=== PATIENT | female | born 1960 | race Caucasian/White ===

== ENCOUNTER → 2016-09-15 | Outpatient (REF) | payer BC ==
[~2016-09-15] MED LIST: CEFT500T3 PO; DRIS50002 PO; IBUP600T; MEGE40TA18 PO; MOTRIN600 PO; MOTRIN800 PO; NASONEX NASAL; NIZORALCR TOP; NORC1TAB4 PO; PRILOSEC20 PO; PRILOSEC40 PO; VIBR100C PO; VICO5TAB
[2016-09-15 12:58] LABS: BASO % 0.5 % (0.0-1.0); EOS # 0.1 K/mm3 (0.0-0.50); EOS % 1.6 % (0.0-3.0); LARGE UNSTAINED CELL # 0.1 K/mm3 (0.0-0.4); LARGE UNSTAINED CELL % 0.9 % (0.0-4.0); LYMPH # 1.2 K/mm3 (1.5-4.5); LYMPH % 20.4 % (24.0-44.0); MEAN CORPUSCULAR HEMOGLOBIN 25.2 pg (27.0-33.0); MEAN CORPUSCULAR HGB CONC 31.9 g/dl (32.0-36.5); MONO # 0.4 K/mm3 (0.0-0.8); MONO % 6.1 % (0.0-5.0); NEUTROPHILS % 70.5 % (36.0-66.0); PLATELET COUNT, AUTOMATED 176 k/mm3 (150-450); RED CELL DISTRIBUTION WIDTH 15.1 % (11.5-14.5); WHITE BLOOD COUNT 5.7 K/mm3 (4.0-10.0)
[2016-09-15 13:18] LABS: ALBUMIN 3.3 GM/DL (3.2-5.2); ALKALINE PHOSPHATASE 110 U/L (45-117); ALT/SGPT 18 U/L (12-78); ANION GAP 8 MEQ/L (8-16); AST/SGOT 14 U/L (15-37); BILIRUBIN,TOTAL 0.5 MG/DL (0.2-1.0); BLOOD UREA NITROGEN 15 MG/DL (7-18); CALCIUM LEVEL 8.4 MG/DL (8.5-10.1); CARBON DIOXIDE LEVEL 28 MEQ/L (21-32); CHLORIDE LEVEL 105 MEQ/L (98-107); CHOLESTEROL LEVEL 163 MG/DL (<200); CREATININE FOR GFR 0.77 MG/DL (0.55-1.02); FREE T4 1.18 NG/DL (0.76-1.46); GLOMERULAR FILTRATION RATE > 60.0 (>51); GLUCOSE, FASTING 143 MG/DL (70-105); POTASSIUM SERUM 4.4 MEQ/L (3.5-5.1); SODIUM LEVEL 141 MEQ/L (136-145); TOTAL PROTEIN 6.3 GM/DL (6.4-8.2); TRIGLYCERIDES LEVEL 238 MG/DL (<150)
== END ==
LOC: M SFHCADAM 07:49
PROVIDERS: ATTEND Physician Assistant Medical
DX: E66.01 Morbid (severe) obesity due to excess calories (principal); E55.9 Vitamin D deficiency, unspecified; R73.01 Impaired fasting glucose

== ENCOUNTER → 2016-12-14 | Outpatient (REF) | payer BC | LOC: M LAB REF 09:31 | PROVIDERS: ATTEND Physician Assistant Medical | DX: N30.01 Acute cystitis with hematuria (principal) ==

== ENCOUNTER → 2016-12-28 | Outpatient (REF) | payer BC | LOC: M LAB REF 09:27 | PROVIDERS: ATTEND Physician Assistant Medical | DX: N30.01 Acute cystitis with hematuria (principal) ==

== ENCOUNTER → 2017-01-09 | Outpatient (REF) | payer BC ==
[2017-01-09 13:05] LABS: ALBUMIN 3.5 GM/DL (3.2-5.2); ALBUMIN/GLOBULIN RATIO 1.25 (1.00-1.93); ALKALINE PHOSPHATASE 76 U/L (45-117); ALT/SGPT 21 U/L (12-78); ANION GAP 7 MEQ/L (8-16); AST/SGOT 15 U/L (15-37); BILIRUBIN,TOTAL 0.6 MG/DL (0.2-1.0); BLOOD UREA NITROGEN 10 MG/DL (7-18); CALCIUM LEVEL 8.3 MG/DL (8.5-10.1); CARBON DIOXIDE LEVEL 27 MEQ/L (21-32); CHLORIDE LEVEL 110 MEQ/L (98-107); CREATININE FOR GFR 0.62 MG/DL (0.55-1.02); GLOMERULAR FILTRATION RATE > 60.0 (>51); GLUCOSE, FASTING 105 MG/DL (70-105); POTASSIUM SERUM 4.1 MEQ/L (3.5-5.1); SODIUM LEVEL 144 MEQ/L (136-145); TOTAL PROTEIN 6.3 GM/DL (6.4-8.2)
== END ==
LOC: M LABDRAW1 11:40
PROVIDERS: ATTEND Physician Assistant Medical
DX: E78.1 Pure hyperglyceridemia (principal); E11.9 Type 2 diabetes mellitus without complications; E55.9 Vitamin D deficiency, unspecified

== ENCOUNTER → 2017-05-12 | Outpatient (REF) | payer BC ==
[2017-05-12 12:44] LABS: BASO % 0.8 % (0.0-1.0); EOS # 0.1 10^3/uL (0.0-0.50); EOS % 1.6 % (0.0-3.0); IMMATURE GRANULOCYTE % 0.2 % (0-0); LYMPH # 0.9 10^3/uL (1.5-4.5); LYMPH % 18.2 % (24.0-44.0); MEAN CORPUSCULAR HEMOGLOBIN 25.7 pg (27.0-33.0); MEAN CORPUSCULAR HGB CONC 31.6 g/dl (32.0-36.5); MEAN CORPUSCULAR VOLUME 81.5 fl (80.0-96.0); MONO # 0.4 10^3/uL (0.0-0.8); MONO % 7.6 % (0.0-5.0); NEUTROPHILS # 3.5 10^3/uL (1.8-7.7); NEUTROPHILS % 71.6 % (36.0-66.0); PLATELET COUNT, AUTOMATED 162 10^3/uL (150-450); RED CELL DISTRIBUTION WIDTH 15.5 % (11.5-14.5); WHITE BLOOD COUNT 4.9 10^3/uL (4.0-10.0)
[2017-05-12 13:16] LABS: ALBUMIN 3.4 GM/DL (3.2-5.2); ALKALINE PHOSPHATASE 77 U/L (45-117); ALT/SGPT 17 U/L (12-78); ANION GAP 6 MEQ/L (8-16); AST/SGOT 16 U/L (7-37); BILIRUBIN,TOTAL 0.7 MG/DL (0.2-1.0); BLOOD UREA NITROGEN 11 MG/DL (7-18); CALCIUM LEVEL 8.6 MG/DL (8.5-10.1); CARBON DIOXIDE LEVEL 31 MEQ/L (21-32); CHLORIDE LEVEL 105 MEQ/L (98-107); CHOLESTEROL LEVEL 152 MG/DL (<200); CREATININE FOR GFR 0.51 MG/DL (0.55-1.02); GLOMERULAR FILTRATION RATE > 60.0 (>51); GLUCOSE, FASTING 92 MG/DL (70-105); POTASSIUM SERUM 4.3 MEQ/L (3.5-5.1); SODIUM LEVEL 142 MEQ/L (136-145); TOTAL PROTEIN 6.5 GM/DL (6.4-8.2); TRIGLYCERIDES LEVEL 130 MG/DL (<150)
== END ==
LOC: M SFHCADAM 09:44
PROVIDERS: ATTEND Physician Assistant Medical
DX: E11.9 Type 2 diabetes mellitus without complications (principal); E55.9 Vitamin D deficiency, unspecified; E78.1 Pure hyperglyceridemia

== ENCOUNTER 2017-07-07 12:01 | Inpatient (IN) | payer BC ==
[2017-07-07] MEDS: ASPIRIN 81 MG CHEW TABLET PO (12:53)
[2017-07-07] MEDS: NITROGLYCERIN 0.4 MG SUBL TABLET SL ×3 (12:54→13:17)
[2017-07-07 13:01] LABS: BASO % 0.4 % (0.0-1.0); EOS # 0.1 10^3/uL (0.0-0.50); EOS % 1.1 % (0.0-3.0); HEMATOCRIT 37.5 % (36.0-47.0); HEMOGLOBIN 11.8 g/dl (12.0-16.0); IMMATURE GRANULOCYTE % 0.2 % (0-3.0); LYMPH # 0.7 10^3/uL (1.5-4.5); MEAN CORPUSCULAR HEMOGLOBIN 25.3 pg (27.0-33.0); MEAN CORPUSCULAR HGB CONC 31.5 g/dl (32.0-36.5); MEAN CORPUSCULAR VOLUME 80.3 fl (80.0-96.0); MONO # 0.4 10^3/uL (0.0-0.8); MONO % 7.7 % (0.0-5.0); NEUTROPHILS # 4.1 10^3/uL (1.8-7.7); NEUTROPHILS % 77.6 % (36.0-66.0); PLATELET COUNT, AUTOMATED 130 10^3/uL (150-450); RED BLOOD COUNT 4.67 10^6/uL (4.00-5.40); RED CELL DISTRIBUTION WIDTH 15.5 % (11.5-14.5); WHITE BLOOD COUNT 5.3 10^3/uL (4.0-10.0)
[2017-07-07 13:16] LABS: ALBUMIN 3.5 GM/DL (3.2-5.2); ALBUMIN/GLOBULIN RATIO 1.09 (1.00-1.93); ALKALINE PHOSPHATASE 104 U/L (45-117); ALT/SGPT 25 U/L (12-78); ANION GAP 5 MEQ/L (8-16); AST/SGOT 23 U/L (7-37); BILIRUBIN,DIRECT 0.1 MG/DL (0.0-0.2); BILIRUBIN,TOTAL 0.4 MG/DL (0.2-1.0); BLOOD UREA NITROGEN 13 MG/DL (7-18); CALCIUM LEVEL 8.5 MG/DL (8.5-10.1); CARBON DIOXIDE LEVEL 29 MEQ/L (21-32); CHLORIDE LEVEL 108 MEQ/L (98-107); CPK CREATINE PHOSPHOKINASE 49 U/L (26-192); CREATININE FOR GFR 0.56 MG/DL (0.55-1.30); GLOMERULAR FILTRATION RATE > 60.0 (>51); GLUCOSE, FASTING 104 MG/DL (70-100); LIPASE 116 U/L (73-393); MB/CK RELATIVE INDEX 2.04 (< OR =4); SODIUM LEVEL 142 MEQ/L (136-145); TOTAL PROTEIN 6.7 GM/DL (6.4-8.2); TROPONIN I < 0.02 NG/ML (< 0.10)
[2017-07-07 13:16] LABS: NT-PRO BNP 118 PG/ML (<125)
[2017-07-07 13:20] LABS: PROTHROMBIN TIME 13.3 SECONDS (12.4-14.5)
[2017-07-07 13:21] LABS: PARTIAL THROMBOPLASTIN TIME 26.6 SECONDS (26.8-37.9)
[2017-07-07 13:23] LABS: D-DIMER QUANT 1722.7 ng/ml (<500)
[2017-07-07] MEDS ORDERED: ISOVUE-370 76% 100ML VIAL (Q9967) As Ordered (13:37)
[2017-07-07] MEDS ORDERED: ONDANSETRON 4MG/2ML VIAL (J2405) IV (16:00)
[2017-07-07 18:31] LABS: ESTIMATED AVERAGE GLUCOSE 140 MG/DL (60-110); HEMOGLOBIN A1c 6.5 %
[2017-07-07 18:33] LABS: CPK CREATINE PHOSPHOKINASE 44 U/L (26-192); FREE THYROXINE INDEX 3.3 % (1.3-4.8); T UPTAKE 31 % (30-39); THYROXINE (T4) 10.5 UG/DL (4.5-12.0); TROPONIN I < 0.02 NG/ML (< 0.10)
[2017-07-07 18:37] LABS: ALPHA FETOPROTEIN TUMOR QUANT 2.1 NG/ML (<8.1)
[2017-07-07 18:38] LABS: CARCINOEMBRYONIC ANTIGEN 75.7 NG/ML (<2.5); MB/CK RELATIVE INDEX 2.27 (< OR =4)
[2017-07-07 19:06] LABS: CA 125 107.1 U/ML (<30.2)
[2017-07-07] MEDS: SENOKOT S TAB PO (21:00)
[2017-07-07] MEDS: PANTOPRAZOLE 40MG TAB (PROTONIX) PO (21:11)
[2017-07-07] MEDS: GI COCKTAIL 50ML BTL(HYOSCYAMINE/MAALOX/LIDOCAINE VISCOUS)(1:3:1) PO (21:11)
[2017-07-07] MEDS: HEPARIN SOD (PORCINE) 5000 UNITS/ML VIAL SC (21:12)
[2017-07-08 00:39] LABS: CPK CREATINE PHOSPHOKINASE 44 U/L (26-192); MB/CK RELATIVE INDEX 2.27 (< OR =4); TROPONIN I < 0.02 NG/ML (< 0.10)
[2017-07-08 04:17] LABS: HEMATOCRIT 35.3 % (36.0-47.0); HEMOGLOBIN 11.3 g/dl (12.0-16.0); MEAN CORPUSCULAR HEMOGLOBIN 25.3 pg (27.0-33.0); MEAN CORPUSCULAR VOLUME 79.1 fl (80.0-96.0); PLATELET COUNT, AUTOMATED 122 10^3/uL (150-450); RED BLOOD COUNT 4.46 10^6/uL (4.00-5.40); RED CELL DISTRIBUTION WIDTH 15.4 % (11.5-14.5); WHITE BLOOD COUNT 5.1 10^3/uL (4.0-10.0)
[2017-07-08 04:43] LABS: ANION GAP 6 MEQ/L (8-16); BLOOD UREA NITROGEN 17 MG/DL (7-18); CALCIUM LEVEL 8.1 MG/DL (8.5-10.1); CARBON DIOXIDE LEVEL 27 MEQ/L (21-32); CHLORIDE LEVEL 110 MEQ/L (98-107); CHOLESTEROL LEVEL 139 MG/DL (<200); CHOLESTEROL RISK RATIO 3.088 (<5); CREATININE FOR GFR 0.46 MG/DL (0.55-1.30); GLOMERULAR FILTRATION RATE > 60.0 (>51); GLUCOSE, FASTING 115 MG/DL (70-100); HDL CHOLESTEROL 45 MG/DL (>40); LDL CHOLESTEROL 57.2 MG/DL (<100); MAGNESIUM LEVEL 2.3 MG/DL (1.8-2.4); NON-HDL-C 94 MG/DL; POTASSIUM SERUM 3.7 MEQ/L (3.5-5.1); SODIUM LEVEL 143 MEQ/L (136-145); TRIGLYCERIDES LEVEL 184 MG/DL (<150)
[2017-07-08] MEDS: SENOKOT S TAB PO ×2 (08:11→21:00)
[2017-07-08] MEDS: IBUPROFEN 400 MG TAB PO ×2 (08:12→21:38)
[2017-07-08] MEDS: PANTOPRAZOLE 40MG TAB (PROTONIX) PO (08:12)
[2017-07-08] MEDS: ASPIRIN 81 MG ENTERIC TAB PO (08:12)
[2017-07-08] MEDS: HEPARIN SOD (PORCINE) 5000 UNITS/ML VIAL SC ×2 (08:59→21:37)
[2017-07-08] MEDS: GASTROGRAFIN SOLUTION 30ML PO ×2 (12:44→12:45)
[2017-07-08] MEDS ORDERED: ISOVUE-370 76% 100ML VIAL (Q9967) As Ordered (13:39)
[2017-07-09 04:47] LABS: HEMATOCRIT 33.3 % (36.0-47.0); HEMOGLOBIN 10.7 g/dl (12.0-16.0); MEAN CORPUSCULAR HEMOGLOBIN 25.5 pg (27.0-33.0); MEAN CORPUSCULAR HGB CONC 32.1 g/dl (32.0-36.5); MEAN CORPUSCULAR VOLUME 79.3 fl (80.0-96.0); PLATELET COUNT, AUTOMATED 109 10^3/uL (150-450); RED CELL DISTRIBUTION WIDTH 15.4 % (11.5-14.5); WHITE BLOOD COUNT 4.9 10^3/uL (4.0-10.0)
[2017-07-09 05:11] LABS: ANION GAP 6 MEQ/L (8-16); BLOOD UREA NITROGEN 16 MG/DL (7-18); CARBON DIOXIDE LEVEL 26 MEQ/L (21-32); CHLORIDE LEVEL 111 MEQ/L (98-107); CREATININE FOR GFR 0.52 MG/DL (0.55-1.30); GLOMERULAR FILTRATION RATE > 60.0 (>51); GLUCOSE, FASTING 103 MG/DL (70-100); MAGNESIUM LEVEL 2.3 MG/DL (1.8-2.4); POTASSIUM SERUM 3.8 MEQ/L (3.5-5.1); SODIUM LEVEL 143 MEQ/L (136-145)
[2017-07-09] MEDS: HEPARIN SOD (PORCINE) 5000 UNITS/ML VIAL SC ×2 (08:28→21:04)
[2017-07-09] MEDS: PANTOPRAZOLE 40MG TAB (PROTONIX) PO (08:28)
[2017-07-09] MEDS: ASPIRIN 81 MG ENTERIC TAB PO (08:28)
[2017-07-09] MEDS: IBUPROFEN 400 MG TAB PO ×2 (08:28→18:54)
[2017-07-09] MEDS: SENOKOT S TAB PO ×2 (08:29→21:04)
[2017-07-10 06:58] LABS: HEMATOCRIT 35.3 % (36.0-47.0); HEMOGLOBIN 11.3 g/dl (12.0-16.0); MEAN CORPUSCULAR HEMOGLOBIN 25.6 pg (27.0-33.0); MEAN CORPUSCULAR VOLUME 79.9 fl (80.0-96.0); PLATELET COUNT, AUTOMATED 105 10^3/uL (150-450); RED BLOOD COUNT 4.42 10^6/uL (4.00-5.40); RED CELL DISTRIBUTION WIDTH 15.5 % (11.5-14.5); WHITE BLOOD COUNT 3.9 10^3/uL (4.0-10.0)
[2017-07-10 07:21] LABS: AMYLASE 31 U/L (25-115); ANION GAP 7 MEQ/L (8-16); BLOOD UREA NITROGEN 12 MG/DL (7-18); CALCIUM LEVEL 8.1 MG/DL (8.5-10.1); CARBON DIOXIDE LEVEL 26 MEQ/L (21-32); CHLORIDE LEVEL 111 MEQ/L (98-107); CREATININE FOR GFR 0.49 MG/DL (0.55-1.30); GLOMERULAR FILTRATION RATE > 60.0 (>51); GLUCOSE, FASTING 110 MG/DL (70-100); LIPASE 124 U/L (73-393); MAGNESIUM LEVEL 2.1 MG/DL (1.8-2.4); POTASSIUM SERUM 3.9 MEQ/L (3.5-5.1); SODIUM LEVEL 144 MEQ/L (136-145)
[2017-07-10] MEDS: PANTOPRAZOLE 40MG TAB (PROTONIX) PO (08:14)
[2017-07-10] MEDS: SENOKOT S TAB PO (08:14)
[2017-07-10] MEDS: ASPIRIN 81 MG ENTERIC TAB PO (08:14)
[2017-07-10] MEDS: HEPARIN SOD (PORCINE) 5000 UNITS/ML VIAL SC (08:14)
[2017-07-10 10:19] LABS: ALBUMIN 3.3 GM/DL (3.2-5.2); ALBUMIN/GLOBULIN RATIO 1.06 (1.00-1.93); ALKALINE PHOSPHATASE 70 U/L (45-117); ALT/SGPT 17 U/L (12-78); AST/SGOT 13 U/L (7-37); BILIRUBIN,DIRECT 0.1 MG/DL (0.0-0.2); BILIRUBIN,TOTAL 0.4 MG/DL (0.2-1.0); TOTAL PROTEIN 6.4 GM/DL (6.4-8.2)
[2017-07-10] MEDS: IBUPROFEN 400 MG TAB PO (12:11)
[2017-07-10] MEDS ORDERED: LIDOCAINE 1% MDV 20ML VIAL As Ordered (13:35)
[2017-07-13] MEDS ORDERED: VITAMIN D 50,000 UNITS CAPSULE (ERGOCALCIFEROL 1.25MG) PO (09:00)
== END 2017-07-10 18:40 | disposition home or self-care (01) ==
LOC: M MS4PR 07-09 15:15 → M ED 12:01 → M ED INP 15:50 → M PCU 17:47
PROC: 0FB13ZX Excision of Right Lobe Liver, Percutaneous Approach, Diagnostic (ICD-10-PCS; principal; 2017-07-10)
DX: K76.89 Other specified diseases of liver (principal); Z68.41 Body mass index [BMI] 40.0-44.9, adult; E66.01 Morbid (severe) obesity due to excess calories; R07.89 Other chest pain; E11.9 Type 2 diabetes mellitus without complications; K57.30 Diverticulosis of large intestine without perforation or abscess without bleeding; E27.9 Disorder of adrenal gland, unspecified

== ENCOUNTER 2017-07-27 10:41 | Day surgery (SDC) | payer BC ==
[2017-07-27] MEDS ORDERED: NS 1,000 ML IV (11:15)
[2017-07-27] MEDS ORDERED: LIDOCAINE 2% INJ 100 MG/5 ML SDV (FOR ANES.) As Ordered (12:26)
[2017-07-27] MEDS ORDERED: PROPOFOL 200 MG/20 ML VIAL As Ordered (12:26)
[2017-07-27] MEDS ORDERED: fentaNYL 100 MCG/2 ML INJECTION (J3010) As Ordered (12:27)
== END 2017-07-27 13:30 | disposition home or self-care (01) ==
LOC: M OPP 13:30
DX: D50.9 Iron deficiency anemia, unspecified (principal); C78.7 Secondary malignant neoplasm of liver and intrahepatic bile duct; K57.30 Diverticulosis of large intestine without perforation or abscess without bleeding; K64.8 Other hemorrhoids; K22.8 Other specified diseases of esophagus; I85.00 Esophageal varices without bleeding; K44.9 Diaphragmatic hernia without obstruction or gangrene; E55.9 Vitamin D deficiency, unspecified; E11.9 Type 2 diabetes mellitus without complications; E66.9 Obesity, unspecified
CPT/HCPCS: 45378

== ENCOUNTER → 2017-07-31 | Outpatient (CLI) | payer BC ==
[~2017-07-31] MED LIST changes: -CEFT500T3 PO; -DRIS50002 PO; -IBUP600T; -MEGE40TA18 PO; -MOTRIN600 PO; -MOTRIN800 PO; -NASONEX NASAL; -NIZORALCR TOP; -NORC1TAB4 PO; -PRILOSEC20 PO; -PRILOSEC40 PO; +PROHANCE 279.3MG/ML 15ML VIAL (A9576) As Ordered; +PROHANCE 279.3MG/ML 5ML VIAL (A9576) As Ordered; -VIBR100C PO; -VICO5TAB
[2017-07-31 10:34] LABS: AMYLASE 34 U/L (25-115); LIPASE 141 U/L (73-393)
[2017-07-31 11:59] LABS: HEPATITIS B SURFACE ANTIBODY NEGATIVE (POSITIVE)
[2017-07-31 12:09] LABS: HEPATITIS B SURFACE ANTIGEN NEGATIVE (NEGATIVE)
[2017-08-01 11:18] LABS: ALPHA FETOPROTEIN TUMOR QUANT < 1.3 NG/ML (<8.1)
[2017-08-01 15:09] LABS: CA19-9 TUMOR MARKER,CARBOHYDRA 99852.5 U/ML (<35.0)
== END ==
LOC: M LAB 09:34
DX: C78.7 Secondary malignant neoplasm of liver and intrahepatic bile duct (principal); D50.9 Iron deficiency anemia, unspecified

== ENCOUNTER → 2017-08-02 | Outpatient (REF) | payer BC ==
[2017-08-02 18:01] LABS: INR 0.99; PROTHROMBIN TIME 13.2 SECONDS (12.4-14.5)
[2017-08-02 18:02] LABS: PARTIAL THROMBOPLASTIN TIME 27.8 SECONDS (26.8-37.9)
== END ==
LOC: M LAB REF 16:29
DX: K90.3 Pancreatic steatorrhea (principal); C25.9 Malignant neoplasm of pancreas, unspecified
CPT/HCPCS: 85610

== ENCOUNTER 2017-08-07 11:24 | Day surgery (SDC) | payer BC ==
[2017-08-07] MEDS: LIDOCAINE 1% SDV INJ 30 ML VIAL As Ordered ×2 (09:51→13:54)
[2017-08-07] MEDS: LR 1,000 ML IV (11:18)
[2017-08-07 12:34] LABS: BEDSIDE GLUCOSE 108 MG/DL (70-105)
[2017-08-07] MEDS ORDERED: PROPOFOL 200 MG/20 ML VIAL As Ordered (13:08)
[2017-08-07] MEDS ORDERED: LIDOCAINE 2% INJ 100 MG/5 ML SDV (FOR ANES.) As Ordered (13:08)
[2017-08-07] MEDS ORDERED: fentaNYL 100 MCG/2 ML INJECTION (J3010) As Ordered (13:09)
[2017-08-07] MEDS ORDERED: MIDAZOLAM INJ 2 MG/2 ML VIAL (J2250) As Ordered (13:09)
[2017-08-07] MEDS: MUPIROCIN 2% OINT 22 GM TUBE TOP (13:26)
[2017-08-07] MEDS: HEPARIN SOD (PORCINE) 5000 UNITS/ML VIAL As Ordered (13:54)
[2017-08-07] MEDS: BUPIVACAINE LIPOSOME/PF 1.3% 20 ML VIAL (13.3MG/ML)(EXPAREL) As Ordered (14:22)
[2017-08-07] MEDS ORDERED: PERCOCET 5MG/325MG TAB As Ordered (15:24)
[2017-08-07] MEDS ORDERED: LR 1,000 ML IV (15:30)
[2017-08-07] MEDS ORDERED: ONDANSETRON 4MG/2ML VIAL (J2405) IV (15:30)
[2017-08-07] MEDS: PERCOCET 5MG/325MG TAB PO (15:34)
== END 2017-08-07 16:15 | disposition home or self-care (01) ==
LOC: M SDC 16:15
DX: C25.9 Malignant neoplasm of pancreas, unspecified (principal); C78.7 Secondary malignant neoplasm of liver and intrahepatic bile duct; E11.9 Type 2 diabetes mellitus without complications; E55.9 Vitamin D deficiency, unspecified; M12.9 Arthropathy, unspecified; E66.01 Morbid (severe) obesity due to excess calories; Z68.41 Body mass index [BMI] 40.0-44.9, adult; Z86.14 Personal history of Methicillin resistant Staphylococcus aureus infection; Z90.710 Acquired absence of both cervix and uterus
CPT/HCPCS: 36561

== ENCOUNTER → 2017-08-14 | Outpatient (CLI) | payer BC | LOC: M SMT 08:17 | DX: C78.7 Secondary malignant neoplasm of liver and intrahepatic bile duct (principal) ==

== ENCOUNTER 2017-09-13 00:22 | Inpatient (IN) | payer BC, OTHER, MEDICAID ==
[2017-09-13] MEDS: ACETAMINOPHEN 325 MG TAB PO (01:15)
[2017-09-13 01:52] LABS: BASO % 1.1 % (0.0-1.0); EOS % 1.1 % (0.0-3.0); HEMATOCRIT 33.2 % (36.0-47.0); HEMOGLOBIN 10.8 g/dl (12.0-15.5); LYMPH # 0.5 10^3/uL (1.5-4.5); LYMPH % 28.7 % (24.0-44.0); MEAN CORPUSCULAR HEMOGLOBIN 25.1 pg (27.0-33.0); MEAN CORPUSCULAR HGB CONC 32.5 g/dl (32.0-36.5); MONO # 0.5 10^3/uL (0.0-0.8); MONO % 28.2 % (0.0-5.0); NEUTROPHILS % 40.9 % (36.0-66.0); RED BLOOD COUNT 4.31 10^6/uL (4.00-5.40); RED CELL DISTRIBUTION WIDTH 14.7 % (11.5-14.5)
[2017-09-13 01:56] LABS: APPEARANCE, URINE HAZY (CLEAR); BACTERIA, URINE AUTO 1+ (NEGATIVE); BILIRUBIN, URINE AUTO 1+ (NEGATIVE); BLOOD, URINE BLOOD NEGATIVE (NEGATIVE); COLOR, URINE YELLOW (YELLOW); GLUCOSE, URINE (UA) AUTO NEGATIVE (NEGATIVE); KETONE, URINE AUTO NEGATIVE (NEGATIVE); LEUKOCYTE ESTERASE, URINE AUTO NEGATIVE (NEGATIVE); MUCUS, URINE SMALL (NEGATIVE); NITRITE, URINE AUTO NEGATIVE (NEGATIVE); PROTEIN, URINE AUTO NEGATIVE (NEGATIVE); RBC, URINE AUTO 1 /HPF (0-3); SPECIFIC GRAVITY URINE AUTO 1.027 (1.002-1.035); SQUAMOUS EPITHELIAL CELL UR AU 5 /HPF (0-6); UROBILINOGEN, URINE AUTO 0.2 mg/dL (0.0-2.0); WBC, URINE AUTO 1 /HPF (0-3)
[2017-09-13 02:05] LABS: WHITE BLOOD COUNT 1.9 10^3/uL (4.0-10.0)
[2017-09-13 02:06] LABS: ANION GAP 6 MEQ/L (8-16); BLOOD UREA NITROGEN 13 MG/DL (7-18); CALCIUM LEVEL 7.8 MG/DL (8.5-10.1); CARBON DIOXIDE LEVEL 25 MEQ/L (21-32); CHLORIDE LEVEL 106 MEQ/L (98-107); CREATININE FOR GFR 0.59 MG/DL (0.55-1.30); GLOMERULAR FILTRATION RATE > 60.0 (>51); GLUCOSE, FASTING 142 MG/DL (70-100); IMMATURE PLATELET FRACTION % 4.2 % (0.0-9.6); NEUTROPHILS # 0.8 10^3/uL (1.8-7.7); PLATELET COUNT, AUTOMATED 99 10^3/uL (150-450); POS COUNT POS FLAG; POSITIVE DIFF POS FLAG; POTASSIUM SERUM 3.5 MEQ/L (3.5-5.1); SODIUM LEVEL 137 MEQ/L (136-145)
[2017-09-13 02:09] LABS: LACTIC ACID SEPSIS PROTOCOL 0.7 MMOL/L (0.4-2.0)
[2017-09-13 02:18] LABS: INFLUENZA A AMPLIFICATION NEGATIVE (NEGATIVE); INFLUENZA B AMPLIFICATION NEGATIVE (NEGATIVE)
[2017-09-13] MEDS: PIPERACILLIN/TAZOBACTAM SOD 3.375 GM in APPROPRIATE DILUENT 1 EA IV ×4 (02:40→20:52)
[2017-09-13] MEDS: NS 1,000 ML IV ×3 (02:51→19:11)
[2017-09-13] MEDS ORDERED: NORCO, ANEXSIA 5/325MG TABLET (HYDROcodone/ACETAMINOPHEN) PO (03:00)
[2017-09-13] MEDS: ONDANSETRON 4MG/2ML VIAL (J2405) IV (03:10)
[2017-09-13] MEDS: NORCO, ANEXSIA 5/325MG TABLET (HYDROcodone/ACETAMINOPHEN) PO ×3 (03:11→20:52)
[2017-09-13] MEDS ORDERED: MORPHINE 4 MG/ML 1ML VIAL/SYRINGE (J2270) IV (03:15)
[2017-09-13 03:27] LABS: CPK CREATINE PHOSPHOKINASE 24 U/L (26-192)
[2017-09-13] MEDS: PANTOPRAZOLE 40MG INJ (PROTONIX) (C9113) IV (04:17)
[2017-09-13] MEDS: VANCOMYCIN HCL 1,000 MG, VIAL MATE ADAPTER 1 EACH in D5W 250 ML IV ×3 (04:17→22:06)
[2017-09-13 04:21] LABS: TROPONIN I < 0.02 NG/ML (< 0.10)
[2017-09-13 04:22] LABS: CK-MB VALUE MASS < 1.0 NG/ML (<3.6); MB/CK RELATIVE INDEX 4.16 (< OR =4)
[2017-09-13] MEDS ORDERED: PANTOPRAZOLE 40MG INJ (PROTONIX) (C9113) IV (09:00)
[2017-09-13] MEDS ORDERED: ENOXAPARIN 40 MG/0.4 ML SYRINGE (J1650) SC (09:00)
[2017-09-14] MEDS: PIPERACILLIN/TAZOBACTAM SOD 3.375 GM in APPROPRIATE DILUENT 1 EA IV ×4 (03:21→21:45)
[2017-09-14] MEDS: PANTOPRAZOLE 40MG INJ (PROTONIX) (C9113) IV (03:21)
[2017-09-14 09:10] LABS: BASO % 0.9 % (0.0-1.0); EOS % 0.9 % (0.0-3.0); HEMATOCRIT 34.2 % (36.0-47.0); HEMOGLOBIN 11.2 g/dl (12.0-15.5); IMMATURE GRANULOCYTE % 0.5 % (0-3.0); LYMPH # 0.6 10^3/uL (1.5-4.5); LYMPH % 27.9 % (24.0-44.0); MEAN CORPUSCULAR HEMOGLOBIN 25.5 pg (27.0-33.0); MEAN CORPUSCULAR HGB CONC 32.7 g/dl (32.0-36.5); MEAN CORPUSCULAR VOLUME 77.9 fl (80.0-96.0); MONO # 0.5 10^3/uL (0.0-0.8); MONO % 20.7 % (0.0-5.0); NEUTROPHILS # 1.1 10^3/uL (1.8-7.7); NEUTROPHILS % 49.1 % (36.0-66.0); RED BLOOD COUNT 4.39 10^6/uL (4.00-5.40); RED CELL DISTRIBUTION WIDTH 14.9 % (11.5-14.5); WHITE BLOOD COUNT 2.2 10^3/uL (4.0-10.0)
[2017-09-14 09:23] LABS: PLATELET COUNT, AUTOMATED 97 10^3/uL (150-450); PLATELET F 93; POS COUNT POS FLAG
[2017-09-14 09:24] LABS: IMMATURE PLATELET FRACTION % 5.9 % (0.0-9.6)
[2017-09-14 09:33] LABS: ANION GAP 6 MEQ/L (8-16); BLOOD UREA NITROGEN 8 MG/DL (7-18); CALCIUM LEVEL 7.7 MG/DL (8.5-10.1); CARBON DIOXIDE LEVEL 24 MEQ/L (21-32); CHLORIDE LEVEL 109 MEQ/L (98-107); CREATININE FOR GFR 0.71 MG/DL (0.55-1.30); GLOMERULAR FILTRATION RATE > 60.0 (>51); GLUCOSE, FASTING 159 MG/DL (70-100); POTASSIUM SERUM 3.3 MEQ/L (3.5-5.1); SODIUM LEVEL 139 MEQ/L (136-145); VANCOMYCIN LEVEL TROUGH 9.7 UG/ML (10.0-20.0)
[2017-09-14] MEDS: NORCO, ANEXSIA 5/325MG TABLET (HYDROcodone/ACETAMINOPHEN) PO ×2 (09:58→19:00)
[2017-09-14] MEDS: VANCOMYCIN HCL 1,000 MG, VIAL MATE ADAPTER 1 EACH in D5W 250 ML IV ×3 (11:58→17:56)
[2017-09-14] MEDS: FILGRASTIM 480 MCG/0.8 ML SYRINGE (J1442) SC (18:59)
[2017-09-14] MEDS: ONDANSETRON 4MG/2ML VIAL (J2405) IV (19:02)
[2017-09-14] MEDS: NS 1,000 ML IV (21:45)
[2017-09-15] MEDS: VANCOMYCIN HCL 1,000 MG, VIAL MATE ADAPTER 1 EACH in D5W 250 ML IV (02:16)
[2017-09-15] MEDS: PANTOPRAZOLE 40MG INJ (PROTONIX) (C9113) IV (03:26)
[2017-09-15] MEDS: NORCO, ANEXSIA 5/325MG TABLET (HYDROcodone/ACETAMINOPHEN) PO ×2 (03:26→11:31)
[2017-09-15] MEDS: PIPERACILLIN/TAZOBACTAM SOD 3.375 GM in APPROPRIATE DILUENT 1 EA IV ×2 (03:26→08:35)
[2017-09-15] MEDS: SODIUM CHLORIDE 0.9% INJ 10 ML SYR IV ×3 (06:26→16:48)
[2017-09-15 06:46] LABS: BASO % 0.4 % (0.0-1.0); EOS % 0.4 % (0.0-3.0); HEMOGLOBIN 10.1 g/dl (12.0-15.5); IMMATURE GRANULOCYTE % 1.5 % (0-3.0); LYMPH # 0.6 10^3/uL (1.5-4.5); LYMPH % 14.1 % (24.0-44.0); MEAN CORPUSCULAR HEMOGLOBIN 24.9 pg (27.0-33.0); MEAN CORPUSCULAR HGB CONC 32.6 g/dl (32.0-36.5); MEAN CORPUSCULAR VOLUME 76.4 fl (80.0-96.0); MONO # 0.8 10^3/uL (0.0-0.8); MONO % 18.5 % (0.0-5.0); NEUTROPHILS # 2.9 10^3/uL (1.8-7.7); NEUTROPHILS % 65.1 % (36.0-66.0); PLATELET COUNT, AUTOMATED 100 10^3/uL (150-450); RED BLOOD COUNT 4.06 10^6/uL (4.00-5.40); RED CELL DISTRIBUTION WIDTH 15.1 % (11.5-14.5); WHITE BLOOD COUNT 4.5 10^3/uL (4.0-10.0)
[2017-09-15 07:08] LABS: ANION GAP 8 MEQ/L (8-16); BLOOD UREA NITROGEN 7 MG/DL (7-18); CALCIUM LEVEL 7.6 MG/DL (8.5-10.1); CARBON DIOXIDE LEVEL 22 MEQ/L (21-32); CHLORIDE LEVEL 114 MEQ/L (98-107); CREATININE FOR GFR 0.79 MG/DL (0.55-1.30); GLOMERULAR FILTRATION RATE > 60.0 (>51); GLUCOSE, FASTING 99 MG/DL (70-100); POTASSIUM SERUM 2.9 MEQ/L (3.5-5.1); SODIUM LEVEL 144 MEQ/L (136-145)
[2017-09-15] MEDS: POTASSIUM CHLORIDE 10 MEQ SR TABLET PO ×3 (08:21→14:42)
[2017-09-15] MEDS: LOPERAMIDE 2 MG CAP PO ×3 (08:22→16:55)
[2017-09-15] MEDS: FILGRASTIM 480 MCG/0.8 ML SYRINGE (J1442) SC (08:23)
[2017-09-15 11:59] LABS: VANCOMYCIN LEVEL TROUGH 22.5 UG/ML (10.0-20.0)
[2017-09-15 13:18] LABS: ANION GAP 9 MEQ/L (8-16); BLOOD UREA NITROGEN 6 MG/DL (7-18); CALCIUM LEVEL 8.2 MG/DL (8.5-10.1); CARBON DIOXIDE LEVEL 21 MEQ/L (21-32); CHLORIDE LEVEL 114 MEQ/L (98-107); CREATININE FOR GFR 0.95 MG/DL (0.55-1.30); GLOMERULAR FILTRATION RATE > 60.0 (>51); GLUCOSE, FASTING 122 MG/DL (70-100); POTASSIUM SERUM 2.9 MEQ/L (3.5-5.1); SODIUM LEVEL 144 MEQ/L (136-145)
[2017-09-15] MEDS: ONDANSETRON 4MG/2ML VIAL (J2405) IV (14:55)
[2017-09-15 16:31] LABS: ANION GAP 6 MEQ/L (8-16); BLOOD UREA NITROGEN 6 MG/DL (7-18); CARBON DIOXIDE LEVEL 23 MEQ/L (21-32); CHLORIDE LEVEL 114 MEQ/L (98-107); CREATININE FOR GFR 0.94 MG/DL (0.55-1.30); GLOMERULAR FILTRATION RATE > 60.0 (>51); GLUCOSE, FASTING 111 MG/DL (70-100); SODIUM LEVEL 143 MEQ/L (136-145)
[2017-09-15] MEDS ORDERED: VANCOMYCIN HCL 1,000 MG, VIAL MATE ADAPTER 1 EACH in D5W 250 ML IV (18:00)
== END 2017-09-15 17:19 | disposition home or self-care (01) | DRG 660 ==
LOC: M ED 00:22 → M ED INP 02:49 → M MS5PR 03:35
DX: D70.1 Agranulocytosis secondary to cancer chemotherapy (principal); Z68.41 Body mass index [BMI] 40.0-44.9, adult; C78.7 Secondary malignant neoplasm of liver and intrahepatic bile duct; E55.9 Vitamin D deficiency, unspecified; C25.9 Malignant neoplasm of pancreas, unspecified; E87.6 Hypokalemia; Z79.899 Other long term (current) drug therapy; E11.9 Type 2 diabetes mellitus without complications; K44.9 Diaphragmatic hernia without obstruction or gangrene; E78.5 Hyperlipidemia, unspecified; E66.01 Morbid (severe) obesity due to excess calories

== ENCOUNTER → 2017-09-18 | Outpatient (REF) | payer BC ==
[2017-09-18 19:26] LABS: ANION GAP 10 MEQ/L (8-16); BLOOD UREA NITROGEN 9 MG/DL (7-18); CALCIUM LEVEL 8.2 MG/DL (8.5-10.1); CARBON DIOXIDE LEVEL 24 MEQ/L (21-32); CHLORIDE LEVEL 111 MEQ/L (98-107); CREATININE FOR GFR 0.94 MG/DL (0.55-1.30); GLOMERULAR FILTRATION RATE > 60.0 (>51); GLUCOSE, FASTING 138 MG/DL (70-100); POTASSIUM SERUM 3.4 MEQ/L (3.5-5.1); SODIUM LEVEL 145 MEQ/L (136-145)
[2017-09-18 19:36] LABS: CREATININE, URINE 79.1 MG/DL; MALB URINE SIEMENS 12.4 MG/L; MAU/CREAT RATIO 15.6 MCG/MG (0.0-30.0)
== END ==
LOC: M SFHCADAM 14:30
DX: E87.6 Hypokalemia (principal); E55.9 Vitamin D deficiency, unspecified; E78.1 Pure hyperglyceridemia; E11.9 Type 2 diabetes mellitus without complications
CPT/HCPCS: 82306

== ENCOUNTER → 2017-09-19 | Outpatient (REF) | payer BC ==
[2017-09-19 13:59] LABS: CA19-9 TUMOR MARKER,CARBOHYDRA 61080.6 U/ML (<35.0)
== END ==
LOC: M LAB REF 10:13
DX: C25.1 Malignant neoplasm of body of pancreas (principal); C78.7 Secondary malignant neoplasm of liver and intrahepatic bile duct
CPT/HCPCS: 86301

== ENCOUNTER → 2017-10-09 | Outpatient (CLI) | payer BC ==
[~2017-10-09] MED LIST changes: +GASTROGRAFIN SOLUTION 30ML (Q9963) As Ordered; +ISOVUE-370 76% 100ML VIAL (Q9967) As Ordered; -PROHANCE 279.3MG/ML 15ML VIAL (A9576) As Ordered; -PROHANCE 279.3MG/ML 5ML VIAL (A9576) As Ordered
== END ==
LOC: M RAD 09:31
DX: C25.9 Malignant neoplasm of pancreas, unspecified (principal)
CPT/HCPCS: Q9963

== ENCOUNTER → 2017-10-17 | Outpatient (REF) | payer BC ==
[2017-10-17 14:24] LABS: MAGNESIUM LEVEL 1.3 MG/DL (1.8-2.4)
== END ==
LOC: M LAB REF 13:49
DX: C25.1 Malignant neoplasm of body of pancreas (principal); C78.7 Secondary malignant neoplasm of liver and intrahepatic bile duct
CPT/HCPCS: 83735

== ENCOUNTER → 2017-11-14 | Outpatient (REF) | payer BC ==
[2017-11-14 16:05] LABS: CA19-9 TUMOR MARKER,CARBOHYDRA 12552.1 U/ML (<35.0)
== END ==
LOC: M LAB REF 13:14
DX: C25.1 Malignant neoplasm of body of pancreas (principal); C78.7 Secondary malignant neoplasm of liver and intrahepatic bile duct
CPT/HCPCS: 86301

== ENCOUNTER → 2017-11-28 | Outpatient (REF) | payer BC ==
[2017-11-28 14:09] LABS: MAGNESIUM LEVEL 1.6 MG/DL (1.8-2.4)
== END ==
LOC: M LAB REF 13:36
DX: C25.1 Malignant neoplasm of body of pancreas (principal); C78.7 Secondary malignant neoplasm of liver and intrahepatic bile duct
CPT/HCPCS: 83735

== ENCOUNTER → 2017-12-12 | Outpatient (REF) | payer BC ==
[2017-12-14 15:46] LABS: CA19-9 TUMOR MARKER,CARBOHYDRA 7450.5 U/ML (<35.0)
== END ==
LOC: M LAB REF 13:41
DX: C25.1 Malignant neoplasm of body of pancreas (principal); C78.7 Secondary malignant neoplasm of liver and intrahepatic bile duct
CPT/HCPCS: 86301

== ENCOUNTER 2017-12-15 10:57 | Emergency (ER) | payer SELFPAY, BC, MEDICAID ==
[2017-12-15] MEDS: MORPHINE 2 MG/ML 1ML SYRINGE (J2270) IV ×2 (11:49→13:52)
[2017-12-15] MEDS: ONDANSETRON 4MG/2ML VIAL (J2405) IV (11:49)
[2017-12-15 13:04] LABS: BASO % 0.4 % (0.0-1.0); EOS % 0.2 % (0.0-3.0); HEMATOCRIT 33.5 % (36.0-47.0); HEMOGLOBIN 10.4 g/dl (12.0-15.5); IMMATURE GRANULOCYTE % 0.2 % (0-3.0); LYMPH # 0.5 10^3/uL (1.5-4.5); LYMPH % 9.5 % (24.0-44.0); MEAN CORPUSCULAR HEMOGLOBIN 27.4 pg (27.0-33.0); MEAN CORPUSCULAR VOLUME 88.4 fl (80.0-96.0); MONO % 0.8 % (0.0-5.0); NEUTROPHILS # 4.3 10^3/uL (1.8-7.7); NEUTROPHILS % 88.9 % (36.0-66.0); PLATELET COUNT, AUTOMATED 111 10^3/uL (150-450); RED BLOOD COUNT 3.79 10^6/uL (4.00-5.40); RED CELL DISTRIBUTION WIDTH 17.3 % (11.5-14.5); WHITE BLOOD COUNT 4.8 10^3/uL (4.0-10.0)
[2017-12-15 13:21] LABS: INR 0.96; PROTHROMBIN TIME 12.9 SECONDS (12.1-14.4)
[2017-12-15 13:31] LABS: ALBUMIN 3.2 GM/DL (3.2-5.2); ALBUMIN/GLOBULIN RATIO 1.03 (1.00-1.93); ALKALINE PHOSPHATASE 124 U/L (45-117); ALT/SGPT 59 U/L (12-78); ANION GAP 10 MEQ/L (8-16); AST/SGOT 77 U/L (7-37); BILIRUBIN,DIRECT 0.1 MG/DL (0.0-0.2); BILIRUBIN,TOTAL 0.4 MG/DL (0.2-1.0); BLOOD UREA NITROGEN 16 MG/DL (7-18); CALCIUM LEVEL 8.1 MG/DL (8.5-10.1); CARBON DIOXIDE LEVEL 24 MEQ/L (21-32); CHLORIDE LEVEL 108 MEQ/L (98-107); CPK CREATINE PHOSPHOKINASE 21 U/L (26-192); CREATININE FOR GFR 0.73 MG/DL (0.55-1.30); GLOMERULAR FILTRATION RATE > 60.0 (>51); GLUCOSE, FASTING 149 MG/DL (70-100); LIPASE 126 U/L (73-393); POTASSIUM SERUM 3.6 MEQ/L (3.5-5.1); SODIUM LEVEL 142 MEQ/L (136-145); TOTAL PROTEIN 6.3 GM/DL (6.4-8.2); TROPONIN I < 0.02 NG/ML (< 0.10)
[2017-12-15 13:37] LABS: CK-MB VALUE MASS < 1.0 NG/ML (<3.6); MB/CK RELATIVE INDEX 4.76 (< OR =4); NT-PRO BNP 471 PG/ML (<125)
[2017-12-15] MEDS ORDERED: ISOVUE-370 76% 100ML VIAL (Q9967) As Ordered (13:54)
[2017-12-15] MEDS: RIVAROXABAN 15 MG TAB (XARELTO) PO (16:35)
[2017-12-15] MEDS: SODIUM CHLORIDE 0.9% INJ 10 ML SYR IV (16:36)
== END 2017-12-15 16:56 | disposition home or self-care (01) ==
LOC: M ED 10:57
DX: I26.99 Other pulmonary embolism without acute cor pulmonale (principal); R00.0 Tachycardia, unspecified; C25.9 Malignant neoplasm of pancreas, unspecified; Z95.828 Presence of other vascular implants and grafts; Z92.21 Personal history of antineoplastic chemotherapy; E11.9 Type 2 diabetes mellitus without complications; Z82.49 Family history of ischemic heart disease and other diseases of the circulatory system; Z79.899 Other long term (current) drug therapy; Z79.01 Long term (current) use of anticoagulants
CPT/HCPCS: J2405

== ENCOUNTER → 2018-01-09 | Outpatient (REF) | payer BC | LOC: M LAB REF 10:08 | DX: C25.1 Malignant neoplasm of body of pancreas (principal); C78.7 Secondary malignant neoplasm of liver and intrahepatic bile duct | CPT/HCPCS: 86301 ==

== ENCOUNTER → 2018-01-16 | Outpatient (CLI) | payer BC, SELFPAY | LOC: M RAD 11:34 | DX: C25.9 Malignant neoplasm of pancreas, unspecified (principal); C78.7 Secondary malignant neoplasm of liver and intrahepatic bile duct; E04.1 Nontoxic single thyroid nodule; K57.30 Diverticulosis of large intestine without perforation or abscess without bleeding | CPT/HCPCS: Q9963 ==

== ENCOUNTER → 2018-02-06 | Outpatient (REF) | payer BC ==
[2018-02-09 14:33] LABS: CA19-9 TUMOR MARKER,CARBOHYDRA 2555.2 U/ML (<35.0)
== END ==
LOC: M LAB REF 13:35
DX: C25.1 Malignant neoplasm of body of pancreas (principal); C78.7 Secondary malignant neoplasm of liver and intrahepatic bile duct
CPT/HCPCS: 86301

== ENCOUNTER 2018-02-10 09:55 | Inpatient (IN) | payer BC ==
[2018-02-10 10:34] LABS: BASO % 0.2 % (0.0-1.0); EOS % 0.1 % (0.0-3.0); HEMATOCRIT 34.8 % (36.0-47.0); HEMOGLOBIN 11.1 g/dl (12.0-15.5); IMMATURE GRANULOCYTE % 1.4 % (0-3.0); LYMPH # 0.5 10^3/uL (1.5-4.5); LYMPH % 2.9 % (24.0-44.0); MEAN CORPUSCULAR HEMOGLOBIN 27.5 pg (27.0-33.0); MEAN CORPUSCULAR HGB CONC 31.9 g/dl (32.0-36.5); MEAN CORPUSCULAR VOLUME 86.1 fl (80.0-96.0); MONO # 0.1 10^3/uL (0.0-0.8); MONO % 0.3 % (0.0-5.0); NEUTROPHILS # 16.6 10^3/uL (1.8-7.7); NEUTROPHILS % 95.1 % (36.0-66.0); PLATELET COUNT, AUTOMATED 107 10^3/uL (150-450); RED BLOOD COUNT 4.04 10^6/uL (4.00-5.40); RED CELL DISTRIBUTION WIDTH 15.6 % (11.5-14.5); WHITE BLOOD COUNT 17.4 10^3/uL (4.0-10.0)
[2018-02-10 10:41] LABS: ANION GAP 5 MEQ/L (8-16); BLOOD UREA NITROGEN 19 MG/DL (7-18); C REACTIVE PROTEIN QUANTITATIV 2.14 MG/DL (0.00-0.30); CALCIUM LEVEL 8.5 MG/DL (8.5-10.1); CARBON DIOXIDE LEVEL 23 MEQ/L (21-32); CHLORIDE LEVEL 110 MEQ/L (98-107); CREATININE FOR GFR 0.62 MG/DL (0.55-1.30); GLOMERULAR FILTRATION RATE > 60.0 (>51); GLUCOSE, FASTING 101 MG/DL (70-100); POTASSIUM SERUM 4.4 MEQ/L (3.5-5.1); SODIUM LEVEL 138 MEQ/L (136-145)
[2018-02-10] MEDS: ACETAMINOPHEN TAB 650MG DOSE (2X325MG) PO (12:03)
[2018-02-10] MEDS ORDERED: LORazepam 1 MG TAB PO (13:15)
[2018-02-10] MEDS ORDERED: PROCHLORPERAZINE 5 MG TAB (S0183) PO (13:15)
[2018-02-10] MEDS: VANCOMYCIN HCL 1,000 MG, VIAL MATE ADAPTER 1 EACH in D5W 250 ML IV (13:37)
[2018-02-10] MEDS: SODIUM CHLORIDE 0.9% INJ 10 ML SYR IV (14:02)
[2018-02-10] MEDS: NORCO, ANEXSIA 5/325MG TABLET (HYDROcodone/ACETAMINOPHEN) PO ×2 (17:08→21:58)
[2018-02-10] MEDS: RIVAROXABAN 10 MG TAB (XARELTO) PO (20:18)
[2018-02-10] MEDS: POTASSIUM CHLORIDE 10 MEQ SR TABLET PO (20:18)
[2018-02-11] MEDS: VANCOMYCIN HCL 1,000 MG, VIAL MATE ADAPTER 1 EACH in D5W 250 ML IV ×3 (00:16→15:57)
[2018-02-11] MEDS: NORCO, ANEXSIA 5/325MG TABLET (HYDROcodone/ACETAMINOPHEN) PO ×4 (02:45→18:19)
[2018-02-11 06:14] LABS: HEMATOCRIT 30.6 % (36.0-47.0); HEMOGLOBIN 9.6 g/dl (12.0-15.5); MEAN CORPUSCULAR HEMOGLOBIN 26.8 pg (27.0-33.0); MEAN CORPUSCULAR HGB CONC 31.4 g/dl (32.0-36.5); MEAN CORPUSCULAR VOLUME 85.5 fl (80.0-96.0); RED BLOOD COUNT 3.58 10^6/uL (4.00-5.40); RED CELL DISTRIBUTION WIDTH 15.7 % (11.5-14.5); WHITE BLOOD COUNT 12.9 10^3/uL (4.0-10.0)
[2018-02-11 06:31] LABS: ALBUMIN 3.1 GM/DL (3.2-5.2); ALKALINE PHOSPHATASE 123 U/L (45-117); ALT/SGPT 22 U/L (12-78); ANION GAP 6 MEQ/L (8-16); AST/SGOT 16 U/L (7-37); BILIRUBIN,TOTAL 0.4 MG/DL (0.2-1.0); BLOOD UREA NITROGEN 14 MG/DL (7-18); CALCIUM LEVEL 8.2 MG/DL (8.5-10.1); CARBON DIOXIDE LEVEL 23 MEQ/L (21-32); CHLORIDE LEVEL 110 MEQ/L (98-107); CREATININE FOR GFR 0.53 MG/DL (0.55-1.30); GLOMERULAR FILTRATION RATE > 60.0 (>51); GLUCOSE, FASTING 104 MG/DL (70-100); POTASSIUM SERUM 4.1 MEQ/L (3.5-5.1); SODIUM LEVEL 139 MEQ/L (136-145); TOTAL PROTEIN 6.2 GM/DL (6.4-8.2)
[2018-02-11 06:39] LABS: ADD MANUAL DIFFER YES; DIFF SLIDE NUMBER 80; IMMATURE PLATELET FRACTION % 3.8 % (0.0-9.6); PLATELET COUNT, AUTOMATED 85 10^3/uL (150-450); POS COUNT POS FLAG; POSITIVE MORPH POS FLAG
[2018-02-11 06:43] LABS: ANISOCYTOSIS 1+; BANDS 2 % (< 11); LYMPHOCYTES 3 % (16-52); MONOCYTES 2 % (0-8); NEUTROPHILS 93 % (35-75); PLATELET ESTIMATE DECREASED (NORMAL)
[2018-02-11] MEDS: ONDANSETRON 4 MG TAB (S0181) PO (09:29)
[2018-02-11] MEDS: INFLUENZA QUADRIVALENT PF VACCINE 0.5ML SYRINGE (90686) IM (10:57)
[2018-02-11 15:45] LABS: VANCOMYCIN LEVEL TROUGH 15.5 UG/ML (10.0-20.0)
[2018-02-11] MEDS: KETOROLAC TROMETHAMINE 10 MG TAB PO (20:59)
[2018-02-11] MEDS: POTASSIUM CHLORIDE 10 MEQ SR TABLET PO (21:00)
[2018-02-12] MEDS: VANCOMYCIN HCL 1,000 MG, VIAL MATE ADAPTER 1 EACH in D5W 250 ML IV ×4 (00:27→23:31)
[2018-02-12 05:54] LABS: HEMATOCRIT 30.2 % (36.0-47.0); HEMOGLOBIN 9.7 g/dl (12.0-15.5); MEAN CORPUSCULAR HEMOGLOBIN 27.1 pg (27.0-33.0); MEAN CORPUSCULAR HGB CONC 32.1 g/dl (32.0-36.5); MEAN CORPUSCULAR VOLUME 84.4 fl (80.0-96.0); PLATELET COUNT, AUTOMATED 75 10^3/uL (150-450); POS COUNT POS FLAG; POSITIVE MORPH POS FLAG; RED BLOOD COUNT 3.58 10^6/uL (4.00-5.40); RED CELL DISTRIBUTION WIDTH 15.6 % (11.5-14.5); WHITE BLOOD COUNT 7.3 10^3/uL (4.0-10.0)
[2018-02-12] MEDS: NORCO, ANEXSIA 5/325MG TABLET (HYDROcodone/ACETAMINOPHEN) PO ×3 (05:54→18:37)
[2018-02-12 05:55] LABS: ADD MANUAL DIFFER YES; DIFF SLIDE NUMBER 87
[2018-02-12 06:16] LABS: ALBUMIN/GLOBULIN RATIO 0.94 (1.00-1.93); ALKALINE PHOSPHATASE 151 U/L (45-117); ALT/SGPT 20 U/L (12-78); ANION GAP 9 MEQ/L (8-16); AST/SGOT 17 U/L (7-37); BILIRUBIN,TOTAL 0.3 MG/DL (0.2-1.0); BLOOD UREA NITROGEN 9 MG/DL (7-18); CALCIUM LEVEL 8.6 MG/DL (8.5-10.1); CARBON DIOXIDE LEVEL 24 MEQ/L (21-32); CHLORIDE LEVEL 109 MEQ/L (98-107); GLOMERULAR FILTRATION RATE > 60.0 (>51); GLUCOSE, FASTING 106 MG/DL (70-100); POTASSIUM SERUM 4.3 MEQ/L (3.5-5.1); SODIUM LEVEL 142 MEQ/L (136-145); TOTAL PROTEIN 6.2 GM/DL (6.4-8.2)
[2018-02-12 07:55] LABS: ANISOCYTOSIS 1+; LYMPHOCYTES 15 % (16-52); METAMYELOCYTES 1 % (0-0); MONOCYTES 1 % (0-8); NEUTROPHILS 83 % (35-75); PLATELET ESTIMATE DECREASED (NORMAL)
[2018-02-12 07:56] LABS: HYPOCHROMASIA 1+
[2018-02-12] MEDS ORDERED: PROPOFOL 200 MG/20 ML VIAL As Ordered ×2 (15:09→15:29)
[2018-02-12] MEDS ORDERED: MIDAZOLAM INJ 2 MG/2 ML VIAL (J2250) As Ordered (15:09)
[2018-02-12] MEDS ORDERED: fentaNYL 100 MCG/2 ML INJECTION (J3010) As Ordered (15:09)
[2018-02-12] MEDS: BUPIVACAINE LIPOSOME/PF 1.3% 20 ML VIAL (13.3MG/ML)(EXPAREL) As Ordered (15:18)
[2018-02-12] MEDS ORDERED: PERCOCET 5MG/325MG TAB PO (16:30)
[2018-02-12] MEDS ORDERED: fentaNYL 100 MCG/2 ML INJECTION (J3010) IV (16:30)
[2018-02-12] MEDS: LR 1,000 ML IV (16:30)
[2018-02-12] MEDS ORDERED: ONDANSETRON 4MG/2ML VIAL (J2405) IV (16:30)
[2018-02-12] MEDS: POTASSIUM CHLORIDE 10 MEQ SR TABLET PO (20:00)
[2018-02-13] MEDS: NORCO, ANEXSIA 5/325MG TABLET (HYDROcodone/ACETAMINOPHEN) PO ×2 (05:21→16:26)
[2018-02-13 05:54] LABS: HEMATOCRIT 28.8 % (36.0-47.0); HEMOGLOBIN 9.2 g/dl (12.0-15.5); MEAN CORPUSCULAR HEMOGLOBIN 26.8 pg (27.0-33.0); MEAN CORPUSCULAR HGB CONC 31.9 g/dl (32.0-36.5); RED BLOOD COUNT 3.43 10^6/uL (4.00-5.40); RED CELL DISTRIBUTION WIDTH 15.4 % (11.5-14.5); WHITE BLOOD COUNT 5.1 10^3/uL (4.0-10.0)
[2018-02-13 05:57] LABS: PLATELET COUNT, AUTOMATED 70 10^3/uL (150-450); POSITIVE MORPH POS FLAG
[2018-02-13 05:58] LABS: ADD MANUAL DIFFER YES; DIFF SLIDE NUMBER 48; IMMATURE PLATELET FRACTION % 3.7 % (0.0-9.6)
[2018-02-13 06:08] LABS: ALBUMIN 3.1 GM/DL (3.2-5.2); ALBUMIN/GLOBULIN RATIO 1.19 (1.00-1.93); ALKALINE PHOSPHATASE 142 U/L (45-117); ALT/SGPT 19 U/L (12-78); ANION GAP 7 MEQ/L (8-16); AST/SGOT 12 U/L (7-37); BILIRUBIN,TOTAL 0.3 MG/DL (0.2-1.0); BLOOD UREA NITROGEN 11 MG/DL (7-18); CALCIUM LEVEL 8.2 MG/DL (8.5-10.1); CARBON DIOXIDE LEVEL 25 MEQ/L (21-32); CHLORIDE LEVEL 109 MEQ/L (98-107); CREATININE FOR GFR 0.49 MG/DL (0.55-1.30); GLOMERULAR FILTRATION RATE > 60.0 (>51); GLUCOSE, FASTING 119 MG/DL (70-100); SODIUM LEVEL 141 MEQ/L (136-145); TOTAL PROTEIN 5.7 GM/DL (6.4-8.2)
[2018-02-13 06:59] LABS: ATYPICAL LYMPH 1 % (0-5); EOSINOPHILS 1 % (0-5); LYMPHOCYTES 15 % (16-52); MONOCYTES 6 % (0-8); NEUTROPHILS 77 % (35-75); PLATELET ESTIMATE DECREASED (NORMAL)
[2018-02-13 07:00] LABS: ANISOCYTOSIS 1+
[2018-02-13 07:03] LABS: HYPOCHROMASIA 1+; OVALOCYTES 1+
[2018-02-13] MEDS: VANCOMYCIN HCL 1,000 MG, VIAL MATE ADAPTER 1 EACH in D5W 250 ML IV ×3 (08:11→23:35)
[2018-02-13] MEDS: RIVAROXABAN 20 MG TAB (XARELTO) PO (17:20)
[2018-02-13] MEDS: POTASSIUM CHLORIDE 10 MEQ SR TABLET PO (20:03)
[2018-02-13] MEDS: KETOROLAC TROMETHAMINE 10 MG TAB PO (20:03)
[2018-02-14 07:47] LABS: HEMATOCRIT 28.7 % (36.0-47.0); HEMOGLOBIN 9.1 g/dl (12.0-15.5); MEAN CORPUSCULAR HEMOGLOBIN 26.8 pg (27.0-33.0); MEAN CORPUSCULAR HGB CONC 31.7 g/dl (32.0-36.5); MEAN CORPUSCULAR VOLUME 84.4 fl (80.0-96.0); RED CELL DISTRIBUTION WIDTH 15.3 % (11.5-14.5)
[2018-02-14 08:17] LABS: ANION GAP 8 MEQ/L (8-16); BLOOD UREA NITROGEN 10 MG/DL (7-18); C REACTIVE PROTEIN QUANTITATIV 2.41 MG/DL (0.00-0.30); CALCIUM LEVEL 8.3 MG/DL (8.5-10.1); CARBON DIOXIDE LEVEL 23 MEQ/L (21-32); CHLORIDE LEVEL 111 MEQ/L (98-107); CREATININE FOR GFR 0.58 MG/DL (0.55-1.30); GLOMERULAR FILTRATION RATE > 60.0 (>51); GLUCOSE, FASTING 128 MG/DL (70-100); SODIUM LEVEL 142 MEQ/L (136-145)
[2018-02-14 08:33] LABS: VANCOMYCIN LEVEL TROUGH 21.1 UG/ML (10.0-20.0)
[2018-02-14 08:40] LABS: ADD MANUAL DIFFER YES; DIFF SLIDE NUMBER 70; PLATELET COUNT, AUTOMATED 56 10^3/uL (150-450); POSITIVE MORPH POS FLAG
[2018-02-14 08:45] LABS: BASOPHILS 1 % (0-4); LYMPHOCYTES 15 % (16-52); MONOCYTES 7 % (0-8); NEUTROPHILS 77 % (35-75)
[2018-02-14 08:46] LABS: PLATELET ESTIMATE NORMAL (NORMAL)
[2018-02-14] MEDS: VANCOMYCIN HCL 750 MG, VIAL MATE ADAPTER 1 EACH in D5W 250 ML IV (10:31)
== END 2018-02-14 15:35 | disposition home or self-care (01) | DRG 173 ==
LOC: M ED 09:55 → M ED INP 13:05 → M MSPAV 16:18
PROC: 05PY33Z Removal of Infusion Device from Upper Vein, Percutaneous Approach (ICD-10-PCS; principal; 2018-02-12 15:01)
DX: T82.7XXA Infection and inflammatory reaction due to other cardiac and vascular devices, implants and grafts, initial encounter (principal); I27.82 Chronic pulmonary embolism; C78.7 Secondary malignant neoplasm of liver and intrahepatic bile duct; Z68.41 Body mass index [BMI] 40.0-44.9, adult; E55.9 Vitamin D deficiency, unspecified; C25.9 Malignant neoplasm of pancreas, unspecified; E66.01 Morbid (severe) obesity due to excess calories; D64.9 Anemia, unspecified; Z79.899 Other long term (current) drug therapy; E11.9 Type 2 diabetes mellitus without complications; E78.5 Hyperlipidemia, unspecified; Y82.8 Other medical devices associated with adverse incidents

== ENCOUNTER → 2018-02-20 | Outpatient (REF) | payer BC | LOC: M LAB REF 13:45 | DX: C25.1 Malignant neoplasm of body of pancreas (principal); C78.7 Secondary malignant neoplasm of liver and intrahepatic bile duct | CPT/HCPCS: 86301 ==

== ENCOUNTER → 2018-03-01 | Outpatient (CLI) | payer BC | LOC: M SMT 08:53 | DX: T80.219A Unspecified infection due to central venous catheter, initial encounter (principal); Y83.1 Surgical operation with implant of artificial internal device as the cause of abnormal reaction of the patient, or of later complication, without mention of misadventure at the time of the procedure | CPT/HCPCS: 71046 ==

== ENCOUNTER 2018-03-02 05:48 | Day surgery (SDC) | payer BC ==
[2018-03-02] MEDS ORDERED: MUPIROCIN 2% OINT 22 GM TUBE TOP (06:00)
[2018-03-02] MEDS ORDERED: ceFAZolin 2 GM/D5W 50 ML IV BAG (J0690 PER 500MG) As Ordered (06:14)
[2018-03-02 06:38] LABS: BEDSIDE GLUCOSE 106 MG/DL (70-105)
[2018-03-02] MEDS: LR 1,000 ML IV (06:50)
[2018-03-02] MEDS ORDERED: LIDOCAINE 2% INJ 100 MG/5 ML SDV (FOR ANES.) As Ordered (07:11)
[2018-03-02] MEDS ORDERED: PROPOFOL 200 MG/20 ML VIAL As Ordered ×2 (07:11→08:26)
[2018-03-02] MEDS ORDERED: fentaNYL 100 MCG/2 ML INJECTION (J3010) As Ordered (07:12)
[2018-03-02] MEDS ORDERED: MIDAZOLAM INJ 2 MG/2 ML VIAL (J2250) As Ordered (07:12)
[2018-03-02] MEDS: LIDOCAINE 1% MDV 20ML VIAL As Ordered (08:00)
[2018-03-02] MEDS: HEPARIN SOD (PORCINE) 5000 UNITS/ML VIAL As Ordered (08:15)
[2018-03-02] MEDS: BUPIVACAINE LIPOSOME/PF 1.3% 20 ML VIAL (13.3MG/ML)(EXPAREL) As Ordered (08:27)
[2018-03-02] MEDS: PERCOCET 5MG/325MG TAB PO (09:08)
[2018-03-02] MEDS ORDERED: KETOROLAC 30 MG/ML VIAL (J1885) As Ordered (09:09)
[2018-03-02] MEDS: KETOROLAC 30 MG/ML VIAL (J1885) IV (09:11)
[2018-03-02] MEDS ORDERED: PERCOCET 5MG/325MG TAB PO (09:15)
[2018-03-02] MEDS ORDERED: ONDANSETRON 4MG/2ML VIAL (J2405) As Ordered (16:26)
== END 2018-03-02 15:50 | disposition home or self-care (01) ==
LOC: M SDC 05:48
DX: C25.0 Malignant neoplasm of head of pancreas (principal); Z45.2 Encounter for adjustment and management of vascular access device; C78.7 Secondary malignant neoplasm of liver and intrahepatic bile duct; E66.01 Morbid (severe) obesity due to excess calories; E11.9 Type 2 diabetes mellitus without complications; E55.9 Vitamin D deficiency, unspecified; Z79.01 Long term (current) use of anticoagulants; Z92.21 Personal history of antineoplastic chemotherapy; Z79.899 Other long term (current) drug therapy; K21.9 Gastro-esophageal reflux disease without esophagitis
CPT/HCPCS: 36561

== ENCOUNTER → 2018-03-08 | Outpatient (CLI) | payer BC | LOC: M SMT 08:30 | DX: T80.219A Unspecified infection due to central venous catheter, initial encounter (principal); J90 Pleural effusion, not elsewhere classified; Y83.1 Surgical operation with implant of artificial internal device as the cause of abnormal reaction of the patient, or of later complication, without mention of misadventure at the time of the procedure | CPT/HCPCS: 71046 ==

== ENCOUNTER → 2018-03-29 | Outpatient (CLI) | payer BC | LOC: M SMT 08:34 | DX: T80.219A Unspecified infection due to central venous catheter, initial encounter (principal); Y83.1 Surgical operation with implant of artificial internal device as the cause of abnormal reaction of the patient, or of later complication, without mention of misadventure at the time of the procedure | CPT/HCPCS: 71046 ==

== ENCOUNTER 2018-06-04 16:01 | Emergency (ER) | payer BC ==
[~2018-06-04] VITALS: Ht 154.9 cm; Wt 108.0 kg
[~2018-06-04 16:01] MED LIST changes: +ATIV1TAB7 PO; +CEFT500T3 PO; +DRIS50003 PO; +FERR325T3 PO; -GASTROGRAFIN SOLUTION 30ML (Q9963) As Ordered; +IBUP600T PO; -ISOVUE-370 76% 100ML VIAL (Q9967) As Ordered; +KLOR10TA76 PO; +LIDO2.5C15 EXT; +MEGE40TA18 PO; +MOTRIN600 PO; +MOTRIN800 PO; +NASONEX NASAL; +NIZORALCR TOP; +NORC1TAB4 PO; +PANT40TA3 PO; +POTA10TA17 PO; +PRILOSEC20 PO; +PRILOSEC40 PO; +PROC10TA4 PO; +TRAM50TA2 PO; +TRIA0.1P11 MT; +VIBR100C PO; +VICO5TAB; +XARE10TA PO; +XARE15TA PO; +XARE20TA PO; +ZOFR8TAB24 PO; +ZYVO1TAB PO
[2018-06-04] MEDS ORDERED: NS 500 ML IV ONE (16:30)
[2018-06-04 16:42] LABS: HEMATOCRIT 34.3 % (36.0-47.0); HEMOGLOBIN 10.7 g/dl (12.0-15.5); MEAN CORPUSCULAR HEMOGLOBIN 25.7 pg (27.0-33.0); MEAN CORPUSCULAR HGB CONC 31.2 g/dl (32.0-36.5); MEAN CORPUSCULAR VOLUME 82.5 fl (80.0-96.0); PLATELET COUNT, AUTOMATED 118 10^3/uL (150-450); RED BLOOD COUNT 4.16 10^6/uL (4.00-5.40); WHITE BLOOD COUNT 12.5 10^3/uL (4.0-10.0)
--- NOTE | 2018-06-04 17:01 | REP ---
Chest one-view HISTORY: Chest pain Comparison: 03/29/2018 The lungs are clear. The heart is normal in size. The pulmonary vasculature is normal in appearance. An Qiioxl-M-Gyhx catheter is present. Impression: No acute disease. Electronically Signed by Jhon Mace MD 06/04/2018 04:53 P
[2018-06-04 17:35] LABS: EOSINOPHILS 1 % (0-5); LYMPHOCYTES 5 % (16-52); METAMYELOCYTES 1 % (0-0); MONOCYTES 4 % (0-8); NEUTROPHILS 83 % (35-75); PLATELET ESTIMATE DECREASED (NORMAL)
[2018-06-04 17:37] LABS: TOXIC VACUOLATION 2+
[2018-06-04 18:16] LABS: ALBUMIN 3.6 GM/DL (3.2-5.2); ALT/SGPT 36 U/L (12-78); BILIRUBIN,DIRECT 0.2 MG/DL (0.0-0.2); BILIRUBIN,TOTAL 0.5 MG/DL (0.2-1.0); BLOOD UREA NITROGEN 11 MG/DL (7-18); CALCIUM LEVEL 8.1 MG/DL (8.5-10.1); CARBON DIOXIDE LEVEL 24 MEQ/L (21-32); CHLORIDE LEVEL 103 MEQ/L (98-107); CPK CREATINE PHOSPHOKINASE 24 U/L (26-192); CREATININE FOR GFR 0.79 MG/DL (0.55-1.30); GLOMERULAR FILTRATION RATE > 60.0 (>51); GLUCOSE, FASTING 151 MG/DL (70-100); LIPASE 58 U/L (73-393); POTASSIUM SERUM 3.9 MEQ/L (3.5-5.1); SODIUM LEVEL 137 MEQ/L (136-145); TOTAL PROTEIN 6.5 GM/DL (6.4-8.2); TROPONIN I < 0.02 NG/ML (< 0.10)
[2018-06-04 18:18] LABS: CK-MB VALUE MASS < 1.0 NG/ML (<3.6); FREE T4 1.48 NG/DL (0.76-1.46); MB/CK RELATIVE INDEX 4.17 (< OR =4)
[2018-06-04] MEDS ORDERED: ISOVUE-370 76% 100ML VIAL (Q9967) As Ordered ONE (18:47)
[2018-06-04 19:16] LABS: CK-MB VALUE MASS < 1.0 NG/ML (<3.6); CPK CREATINE PHOSPHOKINASE 19 U/L (26-192); MB/CK RELATIVE INDEX 5.26 (< OR =4); TROPONIN I < 0.02 NG/ML (< 0.10)
--- NOTE | 2018-06-04 20:01 | REP ---
CT pulmonary angiogram: With IV contrast. History: Chest pain. History of pulmonary embolus. Comparison studies: Comparison study January 16, 2018. Contrast dose: 75 mL of Isovue [address] technique: Helical scanning is acquired and overlapping 1.5 mm and contiguous 3 mm axial images are reformatted. In addition, maximum intensity projection and multiplanar re-formation images are generated in sagittal and coronal imaging projections. CT pulmonary angiographic findings: There is good opacification of the pulmonary arterial tree. Axial, multiplanar re-formation, and maximal intensity projection images show no vessel cutoff or filling defect to suggest a pulmonary embolus. Thoracic aorta is somewhat tortuous but there is no evidence of aneurysm or dissection. There is a Coudtr-M-Jfyp catheter in place in the superior vena cava at the right atrial junction. A small hiatal hernia is noted. No pleural or pericardial effusion is seen. No hilar or mediastinal mass or adenopathy is observed. The spleen is somewhat enlarged, 14 cm in greatest transverse dimension. No focal splenic or hepatic lesion is visible. There is minimal plate-like atelectasis in the lower lobes. No infiltrate, nodule, or mass lesion is seen. Impression: No CT evidence of pulmonary embolus. No acute cardiopulmonary disease. Electronically Signed by Ritesh Almeida MD 06/05/2018 09:15 A
[2018-06-04 21:03] VITALS: BP 108/60
--- NOTE | 2018-06-05 18:22 | ECGEPIP ---
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
--- NOTE | 2018-06-05 18:25 | ECGEPIP ---
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
== END 2018-06-04 21:09 | disposition home or self-care (01) ==
LOC: M ED 16:01
DX: R07.89 Other chest pain (principal); E11.9 Type 2 diabetes mellitus without complications
CPT/HCPCS: 71045; 71275; 80048; 80076; 82550; 82553; 83690; 84439; 84443; 85025; 93005; 93041; 94760; 96374; 99285; Q9967

== ENCOUNTER → 2018-06-08 | Outpatient (CLI) | payer BC ==
[~2018-06-08] MED LIST changes: +EMLA CREAM 5GM (LIDOCAINE/PRILOCAINE) As Ordered ONE; +GASTROGRAFIN SOLUTION 30ML (Q9963) As Ordered ONE; +ISOVUE-370 76% 100ML VIAL (Q9967) As Ordered ONE
--- NOTE | 2018-06-09 06:42 | REP ---
CT abdomen and pelvis with IV and oral contrast: History: Metastatic pancreatic carcinoma. Comparison CT study January 16, 2018. Please note: This patient had a requisition for a CT study of the chest with IV contrast today however, because she had a CT pulmonary angiogram study done in the emergency room 5 days earlier, we elected to perform only the CT abdomen and pelvis. CT contrast dose: 100 ml of intravenous Isovue [address] findings: Spleen remains mildly enlarged but homogeneous in texture. There is mild fatty infiltration of the liver. No focal liver mass lesion is seen on today's contrast enhanced CT study. I note that the patient's metastatic disease were quite conspicuous on July 31, 2017 MRI study, more so than the CT exams done at that time. In any event, no hepatic mass lesion is seen. 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 There are surgical clips in the tan hepatis post Whipple procedure. The pancreatic tail and body looked atrophic as before. No definite adenopathy. Stable nodule in the lateral limb of the left adrenal gland is seen measuring 2 cm in greatest diameter. No renal mass lesion is observed. There is a 3 mm intrarenal calculus in the right mid kidney. Venous collaterals are seen in the left upper abdomen as before. Small and large bowel loops are unremarkable. Normal appendix is seen. There is left colonic diverticulosis again noted. The uterus is surgically absent. Urinary bladder is unremarkable. Impression: Stable CT findings in the abdomen. No CT evidence of progression. Electronically Signed by Ritesh Almeida MD 06/09/2018 08:25 A
== END ==
LOC: M RAD 14:59
PROVIDERS: ATTEND Internal Medicine Medical Oncology
DX: C25.0 Malignant neoplasm of head of pancreas (principal); C78.7 Secondary malignant neoplasm of liver and intrahepatic bile duct
CPT/HCPCS: 74177; Q9963; Q9967

== ENCOUNTER → 2018-06-19 | Outpatient (REF) | payer BC ==
[~2018-06-19] MED LIST changes: -EMLA CREAM 5GM (LIDOCAINE/PRILOCAINE) As Ordered ONE; -GASTROGRAFIN SOLUTION 30ML (Q9963) As Ordered ONE; -ISOVUE-370 76% 100ML VIAL (Q9967) As Ordered ONE
[2018-06-19 13:03] LABS: ALT/SGPT 26 U/L (12-78); BILIRUBIN,TOTAL 0.3 MG/DL (0.2-1.0); BLOOD UREA NITROGEN 12 MG/DL (7-18); CALCIUM LEVEL 8.3 MG/DL (8.5-10.1); CARBON DIOXIDE LEVEL 24 MEQ/L (21-32); CHLORIDE LEVEL 107 MEQ/L (98-107); CHOLESTEROL LEVEL 130 MG/DL (<200); CREATININE FOR GFR 0.69 MG/DL (0.55-1.30); GLOMERULAR FILTRATION RATE > 60.0 (>51); GLUCOSE, FASTING 126 MG/DL (70-100); SODIUM LEVEL 139 MEQ/L (136-145); TRIGLYCERIDES LEVEL 87 MG/DL (<150)
[2018-06-19 13:04] LABS: ALBUMIN 3.4 GM/DL (3.2-5.2); CHOLESTEROL RISK RATIO 2.203 (<5); HDL CHOLESTEROL 59 MG/DL (>40); LDL CHOLESTEROL 54 MG/DL (<100); NON-HDL-C 71 MG/DL; TOTAL PROTEIN 6.4 GM/DL (6.4-8.2)
[2018-06-19 13:06] LABS: HEMOGLOBIN A1c 6.3 %
[2018-06-19 15:42] LABS: TOTAL 25(OH) VITAMIN D 16.2 NG/ML (30.0-100.0)
== END ==
LOC: M SFHCADAM 07:52
PROVIDERS: ATTEND Physician Assistant Medical
DX: E11.9 Type 2 diabetes mellitus without complications (principal); E55.9 Vitamin D deficiency, unspecified; E78.1 Pure hyperglyceridemia

== ENCOUNTER → 2018-08-23 | Outpatient (CLI) | payer BC ==
[~2018-08-23] MED LIST changes: +AUGM875T28 PO; +EMLA CREAM 5GM (LIDOCAINE/PRILOCAINE) As Ordered ONE; +GASTROGRAFIN SOLUTION 30ML (Q9963) As Ordered ONE; +ISOVUE-370 76% 125ML VIAL (Q9967 PER ML) As Ordered ONE; +MUCI30TA5 PO; +PRED20TA PO
--- NOTE | 2018-08-23 16:32 | REP ---
Clinical: Pancreatic carcinoma for restaging. Technique: Axial contrast enhanced images from the thoracic inlet to the upper abdomen with coronal and sagittal re-formations using 100 ml Isovue 370 intravenous contrast material. Comparison: 06/04/2018. Findings: The bilateral lung baer demonstrate minimal posterior basilar dependent changes as well as mild bibasilar atelectasis. No significant consolidation, obvious nodule or mass lesion is appreciated. No obvious adenopathy. Tracheobronchial tree is patent. The mediastinum demonstrates essentially normal / stable thoracic aorta, heart and pericardium. Mild atherosclerotic changes noted. Small hiatal hernia remains stable. Musculoskeletal structures demonstrate age-related changes without focal osseous abnormality. Please refer to abdominal CT for full evaluation of the abdomen. Impression: 1. Minimal posterior basilar dependent changes and mild basilar atelectasis. 2. No obvious evidence for metastatic disease or acute pleuroparenchymal process. Electronically Signed by Pato Reyes MD 08/23/2018 04:25 P
--- NOTE | 2018-08-23 16:53 | REP ---
Clinical: Pancreatic carcinoma for restaging. Technique: Axial contrast enhanced images of the abdomen and pelvis using oral (per protocol) and 100 ml Isovue 370 intravenous contrast material with precontrast and delayed images of the abdomen as well as coronal and sagittal re-formations. Findings: The upper abdomen demonstrates a somewhat irregular wall thickening to the mid/distal stomach and proximal duodenum in the right upper quadrant. There is a moderate amount of inflammatory stranding noted primarily in the upper abdomen and right upper quadrant along with a small amount of fluid extending into the pelvis. There also appears to be new/increased adenopathy the right upper quadrant and specifically involving the gastrohepatic ligament as well as paracaval region and at the level of the celiac axis. Lymph nodes measure up to roughly 12 mm and findings are suspicious for metastatic disease. The patient is status post cholecystectomy with intrahepatic biliary ductal dilatation similar to prior examination. 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 No obvious focal hepatic or splenic lesions are identified. The pancreas again appears atrophic and without obvious discrete mass lesion identified. Right adrenal gland and bilateral kidneys are stable/normal. Left adrenal nodule measuring 2 cm is essentially unchanged. The enteric system is without obstruction or acute inflammatory process. Normal terminal ileum and appendix are identified in the right lower quadrant. Few scattered sigmoid diverticula noted without acute diverticulitis. Pelvis demonstrates normal collapsed bladder and evidence for prior hysterectomy. No obvious retroperitoneal adenopathy noted. Abdominal aorta without aneurysm or dissection. Musculoskeletal structures demonstrate age-related changes without focal osseous abnormality. Impression: 1. Mildly prominent but obviously increased upper abdominal and right upper quadrant adenopathy with lymph nodes measuring up to 12 mm along with mesenteric fat stranding in the right upper quadrant and small amount of free fluid extending into the pelvis concerning for metastatic disease. Differential diagnosis may include infectious/inflammatory change. 2. Mild irregular gastric wall thickening to the mid/distal stomach and proximal duodenum cannot be excluded, and again changes may represent an element of gastritis versus metastatic disease given the patient's history of pancreatic carcinoma. Electronically Signed by Pato Reyes MD 08/23/2018 04:45 P
== END ==
LOC: M RAD 14:19
PROVIDERS: ATTEND Internal Medicine Hematology & Oncology
DX: C25.9 Malignant neoplasm of pancreas, unspecified (principal); C78.7 Secondary malignant neoplasm of liver and intrahepatic bile duct
CPT/HCPCS: 71260; 74178; Q9963; Q9967

== ENCOUNTER 2018-10-10 11:36 | Inpatient (IN) | payer BC ==
[~2018-10-10] VITALS: Ht 154.9 cm; Wt 101.6 kg
[~2018-10-10 11:36] MED LIST changes: +AMBI5TAB PO; -EMLA CREAM 5GM (LIDOCAINE/PRILOCAINE) As Ordered ONE; -GASTROGRAFIN SOLUTION 30ML (Q9963) As Ordered ONE; -ISOVUE-370 76% 125ML VIAL (Q9967 PER ML) As Ordered ONE; -NORC1TAB4 PO; +NORC1TAB7 PO
[2018-10-10] MEDS ORDERED: NS 1,000 ML IV ONE (13:15)
[2018-10-10] MEDS ORDERED: METOCLOPRAMIDE INJ 10MG/2ML VIAL (J2765) IV ONE (13:15)
--- NOTE | 2018-10-10 13:38 | REP ---
CT Head without contrast HISTORY: Headache COMPARISON: None An area of decreased attenuation is present in the posterior left temporal lobe. There is mass effect with effacement of the the occipital horn and partial effacement of the atrium of the left lateral ventricle. There is no intraparenchymal hemorrhage, mass or midline shift. There is no hydrocephalus. There is no extra cerebral collection. There is no fracture. The visualized sinuses are clear. IMPRESSION: Acute left posterior temporal lobe infarction. There is no hemorrhage. Electronically Signed by Jhon Mace MD 10/10/2018 01:30 P
--- NOTE | 2018-10-10 13:45 | ECGEPIP ---
Stationary ECG Study [facility] - ED Test Date: 2018-10-10 Pat Name: JODI GARCIA Department: Room: - Gender: F Tick Inspector: saúl : 1960 Requested By: ANDREIA Frausto Order Number: [id number] Reading MD: Linda Rizvi Measurements Intervals [place] Rate: 83 P: 52 NE: 142 QRS: 29 QRSD: 101 T: 15 QT: 353 QTc: 416 Interpretive Statements SINUS RHYTHM NSTTW ABNORMALITY LOW VOLTAGE LIMB SIMILAR 06/04/18 Electronically Signed On 10-10-2018 13:45:06 EDT by Linda Rizvi
[2018-10-10 13:57] LABS: HEMATOCRIT 27.8 % (36.0-47.0); HEMOGLOBIN 8.6 g/dl (12.0-15.5); MEAN CORPUSCULAR HGB CONC 30.9 g/dl (32.0-36.5); MEAN CORPUSCULAR VOLUME 87.1 fl (80.0-96.0); RED BLOOD COUNT 3.19 10^6/uL (4.00-5.40)
[2018-10-10 14:17] LABS: PLATELET COUNT, AUTOMATED 44 10^3/uL (150-450)
[2018-10-10 14:20] LABS: ERYTHROCYTE SEDIMENTATION RATE 50 mm/hr (0-30)
[2018-10-10 14:30] LABS: ALBUMIN 3.3 GM/DL (3.2-5.2); ALT/SGPT 78 U/L (12-78); BILIRUBIN,TOTAL 0.3 MG/DL (0.2-1.0); BLOOD UREA NITROGEN 7 MG/DL (7-18); C REACTIVE PROTEIN QUANTITATIV 3.62 MG/DL (0.00-0.30); CALCIUM LEVEL 8.7 MG/DL (8.5-10.1); CARBON DIOXIDE LEVEL 26 MEQ/L (21-32); CHLORIDE LEVEL 108 MEQ/L (98-107); CK-MB VALUE MASS < 1.0 NG/ML (<3.6); CPK CREATINE PHOSPHOKINASE 22 U/L (26-192); CREATININE FOR GFR 0.73 MG/DL (0.55-1.30); GLOMERULAR FILTRATION RATE > 60.0 (>51); GLUCOSE, FASTING 140 MG/DL (70-100); LIPASE 36 U/L (73-393); MB/CK RELATIVE INDEX 4.55 (< OR =4); POTASSIUM SERUM 3.6 MEQ/L (3.5-5.1); SODIUM LEVEL 139 MEQ/L (136-145); TOTAL PROTEIN 6.3 GM/DL (6.4-8.2); TROPONIN I 0.02 NG/ML (< 0.10)
[2018-10-10] MEDS ORDERED: ASPIRIN 81 MG CHEW TABLET PO ONE (16:00)
[2018-10-10] MEDS ORDERED: POTA10TA16 PO (16:11)
[2018-10-10] MEDS ORDERED: ZOLP5TAB PO (16:11)
[2018-10-10] MEDS ORDERED: FERR1TAB8 PO (16:11)
[2018-10-10] MEDS ORDERED: LORA1TAB12 PO (16:11)
[2018-10-10] MEDS ORDERED: LORazepam 1 MG TAB PO PRN (17:45)
[2018-10-10] MEDS ORDERED: PROCHLORPERAZINE 5 MG TAB (S0183) PO PRN (17:45)
[2018-10-10] MEDS ORDERED: ONDANSETRON 4 MG TAB (S0181) PO PRN (17:45)
[2018-10-10 18:09] LABS: HEMOGLOBIN A1c 6.2 %
--- NOTE | 2018-10-10 19:01 | REP ---
Duplex extremity venous ultrasound: Bilateral lower extremity. History: History of DVT. Recent CVA. Question DVT. Findings: The deep veins are anechoic and fully compressible from the groin to the popliteal fossa in the left and right lower extremity. Color flow imaging is homogeneous. Spectral Doppler interrogation demonstrates intact respiratory variation in flow and normal manual augmentation of flow. There is no evidence of deep vein thrombosis. Impression: Negative bilateral lower extremity duplex venous ultrasound. No evidence of deep vein thrombosis. Electronically Signed by Ritesh Almeida MD 10/10/2018 06:52 P
--- NOTE | 2018-10-10 19:12 | REP ---
Duplex carotid sonography: History: CVA. Findings: Antegrade flow was observed in both vertebral arteries. Incidental note is made of heterogeneous left thyroid gland texture with nodularity. The largest of these is 3.4 x 2.5 x 2.1 cm. Right carotid: The right common carotid artery is unremarkable. There is minimal soft plaquing in the proximal ICA. Color flow and spectral Doppler interrogation are unremarkable on the right. Velocity chart right carotid: CCA PSV 97 cm/s ICA PSV 105 cm/s ICA EDV 31 cm/s ECA PSV 76 cm/s Right ICA/CCA ratio 1.31. Impression: 0% to 15% category narrowing in the right ICA by Doppler velocity criteria. Left carotid: The left common carotid artery is unremarkable on two-dimensional scanning. There is mild soft plaquing in the bulb and proximal ECA on the left side. Color flow and spectral Doppler interrogation are unremarkable on the left. Velocity chart left carotid: CCA PSV 123 cm/s ICA PSV 113 cm/s ICA EDV 30 cm/s ECA PSV 75 cm/s Left ICA/CCA ratio normal 1.3. Impression: 0% to 15% category narrowing in the left ICA. Incidental note is made of heterogeneous enlargement of the left thyroid gland with multiple nodules. This finding is unchanged from several prior chest CT studies including July 07, 2017. Electronically Signed by Ritesh Almeida MD 10/10/2018 07:27 P
[2018-10-10] MEDS: RIVAROXABAN 20 MG TAB (XARELTO) PO SCH (19:30)
--- NOTE | 2018-10-10 19:37 | HPEPDOC ---
[facility] Medical History & Physical Date of Admission October 10, 2018 Primary Care Physician: TAMIR SINGLETON PA-C Attending Physician: Jerome King MD History and Physical CHIEF COMPLAINT: Headache HISTORY OF PRESENT ILLNESS: Patient is a 58 year old female with a past medical history significant for Stage IV pancreatic adenocarcinoma with metastasis to the liver, history of pulmonary embolism, and chemotherapy induced neutropenia who presented to the [facility] ER with complaint of headache for four days. Patient stated that on Monday she developed a headache that was located in the back of her head and progressed to the front of her head on the left. She stated that the headache started out as mild but progressively had gotten worse the next day. She had denied any changes in speech or gait. She denied any weakness. She does admit slight change in her vision with difficulty focusing. She denies any weakness. She does state that over the past few days she has felt more tired then normal. Patient denied any past history of CVA however, does have a history of pulmonary embolism that was felt to be secondary to her malignancy. She has been on Xarelto and admits to taking her medication every day. The patient presented to the emergency room today as her headache was worsening. In the ER the patient had received a head CT which demonstrated acute left posterior temporal lobe infarction without hemorrhage. She did receive an echocardiogram which was sinus rhythm. Her labs showed pancytopenia. The hospitalist service was consulted and the patient was admitted for further evaluation and management PAST MEDICAL HISTORY: 1. Pancreatic Adenocarcinoma with metastasis to the liver 2. H/O Pulmonary Embolism 3. Chemotherapy induced Neutropenia 4. DMII 5. Morbid Obesity PAST SURGICAL HISTORY: 1. Cholecystectomy 2. Section 3. Abdominal Hysterectomy SOCIAL HISTORY: Patient is currently and lives at home with her . She denies tobacco use. She admits to marijuana use for nausea and pain related to her cancer. She denies recent travel. FAMILY HISTORY: Patient has a father who of a heart attack at the age of 54 and a brother who of a heart attack at 56. No family history of TIA or stroke ALLERGIES: Please see below. REVIEW OF SYSTEMS: CONSTITUTIONAL: Admits to fatigue. Denies fever, chills, unintentional weight loss or weight gain. Denies nightsweats HEENT: Admits to headache for 4 days duration. Admits to difficulty in focusing. Denies difficulty swallowing CARDIOVASCULAR: Denies chest pain, palpitations, or feelings of the heart rac ing. RESPIRATORY: Denies shortness of breath. Denies cough. Denies wheezing GASTROINTESTINAL: Denies abdominal pain. Admits to nausea which is chronic GENITOURINARY: Denies difficulty with urination. Denies increased frequency SKIN: Denies rashes or lesions MUSCULOSKELETAL: Denies muscle weakness. Denies muscle pain NEUROLOGICAL: Denies changes in speech or gait. Denies changes in sensation. Ad mits to difficulty focusing. PSYCHIATRIC: Mood and affect appear appropriate for situation ENDOCRINE: Denies heat or cold intolerance HEMATOLOGIC/LYMPHATIC: Denies easy bruising or bleeding. Admits to history of clotting/PE HOME MEDICATIONS: Please see below. PHYSICAL EXAMINATION: VITAL SIGNS: Temperature 97.4, pulse 97, respiratory rate 18, blood pressure 145/80, pulse oximetry 100% on room air. GENERAL APPEARANCE: Patient is awake, alert, and oriented. Appears in no acute distress. Lying on stretcher comfortably. HEENT: Atrumatic normocephalic. Eyes are nonicteric. Trachea is midline. No palpable cervical lymphadenopathy. CARDIOVASCULAR: Normal S1, S2. Regular rate and rhythm. No clicks rubs or murmurs. No carotid bruits LUNGS: Clear vesicular breath sounds bilaterally with good respiratory effort. No wheezes, rhonci, or rales. ABDOMEN: Soft, nondistended. Nontender to palpation of all 4 quadrants. No rebound tenderness or guarding. Positive bowel sounds throughout MUSCULOSKELETAL: 5/5 muscle strength testing in bilateral upper and lower extremities EXTREMITIES: No edema. 2+ posterior tibial pulses bilaterally. 2+ radial pulses bilaterally NEUROLOGICAL: No focal neurological deficits. CNII-XII intact. Cerebellar testing and finger to nose testing normal. Visual field testing within normal limits. PSYCHIATRIC: Mood and affect appear appropriate LABORATORY DATA: See below. IMAGING: CT Head without contrast HISTORY: Headache COMPARISON: None An area of decreased attenuation is present in the posterior left temporal lobe. There is mass effect with effacement of the the occipital horn and partial effacement of the atrium of the left lateral ventricle. There is no intraparenchymal hemorrhage, mass or midline shift. There is no hydrocephalus. There is no extra cerebral collection. There is no fracture. The visualized sinuses are clear. IMPRESSION: Acute left posterior temporal lobe infarction. There is no hemorrhage. Electronically Signed by Jhon Mace MD 10/10/2018 01:30 P MICROBIOLOGY: Please see below. ASSESSMENT: Patient is a 58 year old female with a past medical history significant for pancreatic adenocarcinoma with metastasis to the liver, h/o pulmonary embolism, DMII, and chemotherapy induced neutropenia who presented with complaint of headache for 4 days duration. Patient presented to the [facility] ER for worsening headache and was found to have an acute left posterior temporal lobe infarction PLAN: 1. Acute Left Posterior Temporal Lobe Infarction -Patient presented with worsening headache for 4 days duration. She received a CT scan which demonstrated a acute left posterior temporal lobe infarction. Patient is chronically anticoagulated with Xarelto due to pulmonary embolism. She has a history of malignancy which could explain a prothrombotic state. Patient denies any past medical history of atrial fibrillation or arrhythmia. -Dr. Eid of Neurology was contacted for consultation. -Per Neurology patient should be continued on Aspirin 81mg and Xarelto 20mg -MRI with out followed by with -Echocardiogram with bubble study -Carotid artery doppler U/S -Patient is on seizure precautions until brain swelling is ruled out. -Neurological checks Q4H -Patient denies difficulty swallowing, she has no difficulty with balance. Will not order PT/OT and Speech and Swallow. Will continue regular diet 2. Pancreatic Adenocarcinoma with Metastasis to Liver -Patient is currently followed by Oncology -Continue antiemetic and [place] 3. Pancytopenia -Secondary to patients chemotherapy. -Continue iron supplementation 4. DVT prophylaxis -Xarelto 20 mg Vital Signs Vital Signs Date Time Temp Pulse Resp B/P (MAP) Pulse Ox O2 Delivery O2 Flow Rate FiO2 10/10/18 17:01 84 18 126/77 (93) 99 Room Air 10/10/18 11:46 99.4 Laboratory Data Labs 24H Laboratory Tests 2 10/10/18 00:00: 10/10/18 13:46: Nucleated Red Blood Cells % (auto) 0.0, Immature Platelet Fraction 7.7, Eryth rocyte Sedimentation Rate 50H, Anion Gap 5L, Glomerular Filtration Rate > 60.0, Blood Urea Nitrogen 7, Creatinine 0.73, Sodium Level 139, Potassium Level 3.6, Chloride Level 108H, Carbon Dioxide Level 26, Calcium Level 8.7, Aspartate Amino Transf (AST/SGOT) 58H, Alanine Aminotransferase (ALT/SGPT) 78, Total Creatine Kinase 22L, Alkaline Phosphatase 203H, Total Bilirubin 0.3, Total Protein 6.3L, Albumin 3.3, Creatine Kinase MB < 1.0, Creatine Kinase MB Relative Index 4.55H, Troponin I 0.02, C-Reactive Protein, Quantitative 3.62H, Albumin/Globulin Ratio 1.10, Lipase 36L CBC/BMP Laboratory Tests 10/10/18 13:46 Red Blood Count 3.19 L, Mean Corpuscular Volume 87.1, Mean Corpuscular Hemoglobin 27.0, Mean Corpuscular Hemoglobin Concent 30.9 L, Red Cell Distribution Width 18.7 H, Calcium Level 8.7, Aspartate Amino Transf (AST/SGOT) 58 H, Alanine Aminotransferase (ALT/SGPT) 78, Total Creatine Kinase 22 L, Alkaline Phosphatase 203 H, Total Bilirubin 0.3, Total Protein 6.3 L, Albumin 3.3 Home Medications Scheduled Ferrous Sulfate (Ferrous Sulfate) 325 Mg Tablet, 325 MG PO DAILY Lidocaine/Prilocaine (Lidocaine-Prilocaine Cream) 1 Cre Cre, 1 CRE EXT ASDIRECTED USES ON PORT EVERY OTHER MONDAY PRIOR TO CHEMO. Potassium Chloride (Potassium Chloride) 10 Meq Tab.er.prt, 10 MEQ PO DAILY Rivaroxaban (Xarelto) 20 Mg Tab, 20 MG PO QPM with food Scheduled PRN Hydrocodone/Acetaminophen ([place] 5-325 Tablet) 1 Tab Tab, 1 TAB PO Q8H PRN for PAIN Lorazepam (Lorazepam) 1 Mg Tablet, 1 MG PO BID PRN for ANXIETY Ondansetron HCl (Zofran) 8 Mg Tab, 8 MG PO BID PRN for NAUSEA Prochlorperazine Maleate (Prochlorperazine Maleate) 10 Mg Tab, 10 MG PO Q6H PRN for NAUSEA Zolpidem Tartrate (Zolpidem Tartrate) 5 Mg Tablet, 5 MG PO QPM PRN for INSOMNIA Allergies Coded Allergies: No Known Allergies (Unverified , 08/22/18) A-FIB/CHADSVASC A-FIB History Current/History of A-Fib/PAF?: No GME ATTESTATION GME ATTESTATION My faculty preceptor for this patient encounter was physically present during the encounter and was fully available. All aspects of the patient interview, examination, medical decision making process, and medical care plan development were reviewed and approved by the faculty preceptor. The faculty preceptor is aware and concurs with the plan as stated in the body of this note and will attest to such by his/her cosignature. ATTENDING NOTE I performed a history and physical examination of the patient and discussed their management with the resident. I reviewed the resident's note and agree with the documented findings and plan of care. BABAR PEREIRA DO October 10, 2018 19:36 MATTHEW FRANCOIS MD October 11, 2018 13:22
[2018-10-10 20:00] VITALS: BP 166/70
[2018-10-10] MEDS ORDERED: PROHANCE 279.3MG/ML 5ML VIAL (A9576) As Ordered ONE (20:50)
[2018-10-10] MEDS ORDERED: PROHANCE 279.3MG/ML 15ML VIAL (A9576) As Ordered ONE (20:51)
[2018-10-10 23:59] VITALS: BP 102/65
[2018-10-11 04:00] VITALS: BP 116/55
[2018-10-11 06:07] LABS: HEMATOCRIT 26.2 % (36.0-47.0); HEMOGLOBIN 8.2 g/dl (12.0-15.5); MEAN CORPUSCULAR HGB CONC 31.3 g/dl (32.0-36.5); MEAN CORPUSCULAR VOLUME 86.2 fl (80.0-96.0); RED BLOOD COUNT 3.04 10^6/uL (4.00-5.40); WHITE BLOOD COUNT 3.5 10^3/uL (4.0-10.0)
[2018-10-11 06:09] LABS: PLATELET COUNT, AUTOMATED 43 10^3/uL (150-450)
[2018-10-11 06:27] LABS: BLOOD UREA NITROGEN 8 MG/DL (7-18); CALCIUM LEVEL 8.4 MG/DL (8.5-10.1); CARBON DIOXIDE LEVEL 23 MEQ/L (21-32); CHLORIDE LEVEL 109 MEQ/L (98-107); CREATININE FOR GFR 0.66 MG/DL (0.55-1.30); GLOMERULAR FILTRATION RATE > 60.0 (>51); GLUCOSE, FASTING 107 MG/DL (70-100); POTASSIUM SERUM 3.2 MEQ/L (3.5-5.1); SODIUM LEVEL 139 MEQ/L (136-145)
--- NOTE | 2018-10-11 08:52 | REPVR ---
EXAM: MR Head Without and With Contrast EXAM DATE/TIME: 10/10/2018 5:25 PM CLINICAL HISTORY: 58 years old, female; Abnormal findings; Abnormal radiologic findings of head/skull; Ischemia; Patient HX: ? CVA, HX pancreatic CA, on chemo; Additional info: Left posterior lobe infarction TECHNIQUE: Imaging protocol: MR of the head without and with intravenous contrast. Contrast material: PROHANCE; Contrast volume: 20 ml; Contrast route: IV; COMPARISON: CT Head without contrast 10/10/2018 1:03 PM FINDINGS: Brain: Restricted diffusion involving the left parieto-occipital region compatible with acute infarct. Additional punctate foci of restricted diffusion are noted in the bilateral caudate heads, subcortical white matter of the left frontal lobe, right centrum semiovale. Ventricles: Normal. No ventriculomegaly. Bones/joints: Unremarkable. Soft tissues: Normal. Sinuses: Normal as visualized. No acute sinusitis. Mastoid air cells: Normal as visualized. No mastoid effusion. Orbits: Unremarkable. IMPRESSION: Redemonstration of left parieto-occipital region infarct. Suggestion of several additional bilateral acute lacunar infarcts as discussed above. No midline shift. Electronically signed by: Scooby Gardiner On 10/11/2018 08:52:07 AM
--- NOTE | 2018-10-11 08:56 | IPNPDOC ---
Subjective Date Seen The patient was seen on 10/11/18. Subjective Chief Complaint/HPI Patient resting comfortably in bed when I entered the room. She reports to be feeling well. Mild persistent headache. Constitutional: Denies: Chills, Fever ENT: Reports: Head Aches; Denies: Dysphagia Pulmonary: Denies: Dyspnea, Cough, Pleuritic Chest Pain Cardiovascular: Denies: Chest Pain, Palpitations, Orthopnea, Edema, Lt Headedness Gastrointestinal: Denies: Nausea, Vomiting, Abdominal Pain Neurological: Denies: Weakness, Numbness, Incoordination, Change in speech, Confusion, Seizures Psych: Reports: Mood Normal Objective Physical Examination General Exam: Positive: Alert, Cooperative, No Acute Distress Eye Exam: Positive: PERRLA, EOMI ENT Exam: Positive: Atraumatic Neck Exam: Positive: Supple; Negative: JVD Chest Exam: Positive: Clear to auscultation, Normal air movement; Negative: Rales, Rhonchi, Wheezing Heart Exam: Positive: Rate Normal, Regular Rhythm; Negative: Murmurs Extremity Exam: Negative: Clubbing, Edema Skin Exam: Negative: Rash Neuro Exam: Positive: Normal Speech, Strength at 5/5 X4 ext, Cranial Nerves 3- 12 NL Psych Exam: Positive: Mental status NL A-FIB/CHADSVASC A-FIB History Current/History of A-Fib/PAF?: No Assessment /Plan Problems (1) CVA (cerebral vascular accident) Status: Acute Response to Treatment: Stable Problem Specific Plan: Consult Specialist Problem Text: 10/11/18: Patient with no residual effects. Neurology was consulted. Patient will continue ASA 81 mg and Xarelto 20 mg. MRI was ordered, results pending. ECHO ordered. Carotid u/s ordered. Neuro checks normal. CT Scan: An area of decreased attenuation is present in the posterior left temporal lobe. There is mass effect with effacement of the the occipital horn and partial effacement of the atrium of the left lateral ventricle. There is no intraparenchymal hemorrhage, mass or midline shift. There is no hydrocephalus. There is no extra cerebral collection. There is no fracture. The visualized sinuses are clear. IMPRESSION: Acute left posterior temporal lobe infarction. There is no hemorrhage. (2) Pancreatic cancer metastasized to liver Status: Chronic Problem Text: 10/14/18: Patient following with medical oncology and [facility]. She was last seen in oncology clinic on 10/02/18. Treatment regimen includes Oxaliplatin, Irinotecan, Leukovorin (3) Type 2 diabetes mellitus Status: Chronic Response to Treatment: Stable Problem Text: 10/11/18: Diet controlled. Last A1C 6.3 (4) Hx of pulmonary embolus Status: Chronic Response to Treatment: Stable Problem Text: 10/11/18: Currently on Xarelto Plan/VTE VTE Prophylaxis Ordered?: Yes (Xarelto ) Plan Family Medicine Attending Note: I saw and examined Ms. Cherry, discussed with Lorena Sofia DNP. Agree with her note as documented. She reports persistence of her mild headache, no residual deficits. Headache is not bad enough to stop her from watching a movie on her iPad. As long as she remains clinically stable, I would anticipate discharging her tomorrow. 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) VS, I&O, 24H, Fishbone Vital Signs/I&O Vital Signs Date Time Temp Pulse Resp B/P (MAP) Pulse Ox O2 Delivery O2 Flow Rate FiO2 10/11/18 04:00 97.2 88 18 116/55 (75) 98 10/10/18 19:15 Room Air I&O- Last 24 Hours up to 6 AM 10/11/18 06:00 Intake Total 1120 ml Output Total 150 ml Balance 970 ml Laboratory Data 24H LABS Laboratory Tests 2 10/10/18 13:46: Nucleated Red Blood Cells % (auto) 0.0, Immature Platelet Fraction 7.7, Erythrocyte Sedimentation Rate 50H, Anion Gap 5L, Glomerular Filtration Rate > 60.0, Blood Urea Nitrogen 7, Creatinine 0.73, Sodium Level 139, Potassium Level 3.6, Chloride Level 108H, Carbon Dioxide Level 26, Calcium Level 8.7, Aspartate Amino Transf (AST/SGOT) 58H, Alanine Aminotransferase (ALT/SGPT) 78, Total Creatine Kinase 22L, Alkaline Phosphatase 203H, Total Bilirubin 0.3, Total Protein 6.3L, Albumin 3.3, Creatine Kinase MB < 1.0, Creatine Kinase MB Relative Index 4.55H, Troponin I 0.02, C-Reactive Protein, Quantitative 3.62H, Albumin/Globulin Ratio 1.10, Lipase 36L 10/11/18 05:36: Nucleated Red Blood Cells % (auto) 0.9H, Anion Gap 7L, Glomerular Filtration Rate > 60.0, Blood Urea Nitrogen 8, Creatinine 0.66, Sodium Level 139, Potassium Level 3.2L, Chloride Level 109H, Carbon Dioxide Level 23, Calcium Level 8.4L CBC/BMP Laboratory Tests 10/10/18 13:46 Red Blood Count 3.19 L, Mean Corpuscular Volume 87.1, Mean Corpuscular Hemoglobin 27.0, Mean Corpuscular Hemoglobin Concent 30.9 L, Red Cell Distribution Width 18.7 H, Calcium Level 8.7, Aspartate Amino Transf (AST/SGOT) 58 H, Alanine Aminotransferase (ALT/SGPT) 78, Total Creatine Kinase 22 L, Alkal ine Phosphatase 203 H, Total Bilirubin 0.3, Total Protein 6.3 L, Albumin 3.3 10/11/18 05:36 Red Blood Count 3.04 L, Mean Corpuscular Volume 86.2, Mean Corpuscular Hemoglobin 27.0, Mean Corpuscular Hemoglobin Concent 31.3 L, Red Cell Distribution Width 18.9 H, Calcium Level 8.4 L LORENA SOFIA October 11, 2018 8:56 am Jerome King MD October 11, 2018 11:16 pm
[2018-10-11 09:10] VITALS: BP 120/74
[2018-10-11] MEDS: FERROUS SULFATE 325MG TAB PO SCH (09:12)
[2018-10-11] MEDS: ASPIRIN 81 MG CHEW TABLET PO SCH (09:12)
[2018-10-11] MEDS: POTASSIUM CHLORIDE 10 MEQ SR TABLET PO SCH (09:12)
[2018-10-11] MEDS: NORCO, ANEXSIA 5/325MG TABLET (HYDROcodone/ACETAMINOPHEN) PO PRN ×2 (09:13→17:11)
[2018-10-11] MEDS ORDERED: POTASSIUM CHLORIDE 10 MEQ SR TABLET PO ONE (10:15)
[2018-10-11] MEDS: LOPERAMIDE 2 MG CAP PO PRN (11:18)
[2018-10-11 12:00] VITALS: BP 140/78
[2018-10-11 16:00] VITALS: BP 126/76
[2018-10-11] MEDS: RIVAROXABAN 20 MG TAB (XARELTO) PO SCH (17:11)
--- NOTE | 2018-10-11 18:08 | ECHO ---
DATE OF PROCEDURE: 10/11/2018 REFERRING PHYSICIAN: Stephen Banks INDICATION: Cerebrovascular accident. Height 155 cm, weight 105 kg. DIMENSIONS: IVS: 1.2 LV: 4.8 LVPW: 1.2 LA: 3.1 Aorta: 2.7 Mitral E wave velocity: 61 A wave: 74 E prime septal: 6.2 E prime lateral: 6.6 FINDINGS: The study is of adequate technical quality with somewhat limited visualization. The patient is in sinus rhythm. Left ventricle is of normal size and systolic function with estimated left ventricular ejection fraction (LVEF) 60-65%. Mild left ventricle hypertrophy is noted. Right ventricle appears normal. Both atria appear grossly normal. Aortic, mitral and tricuspid valves appear normal. Pulmonic valve was not well seen. No pericardial effusion is present. Inferior vena cava was poorly seen. Aortic root and aortic arch appear normal. Abdominal aorta was not well visualized. Doppler interrogation of aortic and mitral valve reveals no stenosis or insufficiency. There is trace tricuspid insufficiency. Calculated pulmonary artery pressure is within normal limits assuming normal central venous pressure. Mitral inflow pattern and tissue Doppler imaging of mitral annulus revealed grade 1 diastolic dysfunction. Injection of agitated saline did not reveal any evidence for yaesr-po-poyt or vatj-jd-foiqr shunt. "Negative bubble study." CONCLUSIONS: 1. Study is of acceptable technical quality. 2. Normal left ventricular (LV) size with mild left ventricular hypertrophy (LVH) and preserved LV systolic function. Grade 1 diastolic dysfunction. 3. No significant valvular disease. 4. Unable to estimate central venous pressure but likely normal pulmonary artery pressure. 5. Negative "bubble study." COMMENT: Subacute bacterial endocarditis (SBE) prophylaxis is not recommended. Study is consistent with mild hypertensive heart disease. MTDD
[2018-10-11 20:00] VITALS: BP 130/72
[2018-10-11 23:59] VITALS: BP 124/57
[2018-10-12 04:00] VITALS: BP 116/55
[2018-10-12 05:58] LABS: HEMATOCRIT 27.7 % (36.0-47.0); HEMOGLOBIN 8.5 g/dl (12.0-15.5); MEAN CORPUSCULAR HEMOGLOBIN 26.7 pg (27.0-33.0); MEAN CORPUSCULAR HGB CONC 30.7 g/dl (32.0-36.5); MEAN CORPUSCULAR VOLUME 87.1 fl (80.0-96.0); RED BLOOD COUNT 3.18 10^6/uL (4.00-5.40); WHITE BLOOD COUNT 3.5 10^3/uL (4.0-10.0)
[2018-10-12 05:59] LABS: PLATELET COUNT, AUTOMATED 56 10^3/uL (150-450)
[2018-10-12 06:23] LABS: BLOOD UREA NITROGEN 9 MG/DL (7-18); CALCIUM LEVEL 8.6 MG/DL (8.5-10.1); CARBON DIOXIDE LEVEL 24 MEQ/L (21-32); CHLORIDE LEVEL 110 MEQ/L (98-107); CREATININE FOR GFR 0.61 MG/DL (0.55-1.30); GLOMERULAR FILTRATION RATE > 60.0 (>51); GLUCOSE, FASTING 111 MG/DL (70-100); POTASSIUM SERUM 3.4 MEQ/L (3.5-5.1); SODIUM LEVEL 140 MEQ/L (136-145)
--- NOTE | 2018-10-12 07:12 | CR ---
DATE OF CONSULTATION: 10/11/2018 REFERRING PHYSICIAN: Dr. Jerome King REASON FOR CONSULTATION: Stroke. HISTORY OF PRESENT ILLNESS: Jalyn Cherry is a 58-year-old woman who has history of stage IV pancreatic cancer with metastasis to liver, history of pulmonary embolism and undergoing chemotherapy with neutropenia who presented to [facility] due to headache for 4 days. The headache started on Monday and it was occipital in location and radiated to the front part of her head on the left side. The headache ranged between 3-6 out of 10 in intensity. She still has mild headache. She felt whenever she was reading she had slight blurred vision when looking at words on right side. There was no loss of vision. She denies any numbness or weakness in her arms and legs, dysphagia, dysarthria, diplopia, incoordination, falls or loss of consciousness. She denies any numbness or weakness of her arms and legs. She denies any neck or back pain. She came to [facility] and CT scan of the head showed subacute left occipital and temporal ischemic stroke. She was admitted for further evaluation. PAST MEDICAL HISTORY: Stage IV pancreatic cancer with metastasis to liver, pulmonary embolism, chemotherapy induced neutropenia and pancytopenia, cholecystectomy, section, hysterectomy, diabetes, and obesity. SOCIAL HISTORY: She lives with her . She denies smoking, alcohol or illicit drugs. She admits to use marijuana for nausea and pain related to her cancer. FAMILY HISTORY: Father of heart attack and brother had heart attack as well. REVIEW OF SYSTEMS: All systems were reviewed and found to be noncontributory except as mentioned in history of present illness. HOME MEDICATIONS: - Xarelto 20 mg by mouth daily - ferrous sulfate 325 mg by mouth daily - lidocaine/prilocaine cream as needed - potassium chloride 10 mEq by mouth daily - Vicodin - Ativan - Zofran - prochlorperazine - Ambien 5 mg by mouth at bedtime as needed ALLERGIES: None. PHYSICAL EXAMINATION: Temperature 98, pulse 85, respiratory rate 18, blood pressure 140/78, and 99% saturation on room air. Heart: Regular rate and rhythm. Lungs: Clear to auscultation. Abdomen: Soft, nontender, nontender, nondistended. No pedal edema. No musculoskeletal abnormalities. No rash. No signs of meningeal irritation. No tremor or dysmetria. The patient is awake, alert, oriented to place, person and time. Normal speech, comprehension and repetition. Extraocular muscles are intact. No facial weakness. Tongue and uvula are midline. 5/5 strength in all four extremities. Deep tendon reflexes 2+ throughout. Normal sensation. Gait is normal. Recent and distant memory is intact. Visual baer are full to confrontation. DIAGNOSTIC STUDIES: MRI scan of brain was reviewed and showed left occipital and parietal subacute ischemic stroke. She also has small lacunar bilateral ischemic strokes. Carotid ultrasound showed less than 15% bilateral carotid artery stenosis. ASSESSMENT: 1. Embolic left occipital and temporal subacute ischemic stroke with small multiple embolic bilateral ischemic strokes. 2. History of stage IV pancreatic cancer with metastasis to liver and pulmonary embolism. 3. Likely hypercoagulable state due to cancer. PLAN: 1. Echocardiogram. 2. Aspirin 81 mg by mouth daily and Xarelto 20 mg by mouth daily. 3. Continue telemetry monitoring. 4. Physical and occupational therapy. 5. Follow with our office in 2-3 weeks after hospital discharge.
[2018-10-12 08:00] VITALS: BP 123/79
[2018-10-12] MEDS: ASPIRIN 81 MG CHEW TABLET PO SCH (08:04)
[2018-10-12] MEDS: POTASSIUM CHLORIDE 10 MEQ SR TABLET PO SCH (08:05)
[2018-10-12] MEDS: FERROUS SULFATE 325MG TAB PO SCH (08:05)
[2018-10-12] MEDS: NORCO, ANEXSIA 5/325MG TABLET (HYDROcodone/ACETAMINOPHEN) PO PRN (08:06)
[2018-10-12] MEDS ORDERED: POTASSIUM CHLORIDE 10 MEQ SR TABLET PO ONE (09:15)
[2018-10-12 11:46] VITALS: BP 124/95
[2018-10-12] MEDS: LOPERAMIDE 2 MG CAP PO PRN (12:33)
[2018-10-12] MEDS ORDERED: ASPI81CH8 PO (13:42)
[2018-10-13] MEDS ORDERED: POTASSIUM CHLORIDE 10 MEQ SR TABLET PO SCH (09:00)
--- NOTE | 2018-10-24 08:23 | DS.PDOC ---
Discharge Summary General Date of Admission October 10, 2018 at 16:43 Date of Discharge 10/12/18 Primary Care Physician: Santy Sam MD Attending Physician: Jerome King MD Specialist/Consultants Involve: SANDEEP DESHPANDE MD Discharge Summary ADMITTING DIAGNOSES: 1. Acute left posterior temporal lobe infarction. 2. Pancreatic adenocarcinoma with metastasis to liver. 3. Pancytopenia, secondary to chemotherapy. DISCHARGE DIAGNOSES: 1. Left posterior temporal lobe infarction, no residual deficit. 2. Pancreatic adenocarcinoma with metastasis to liver. 3. Pancytopenia, secondary to chemotherapy. 4. Type 2 diabetes. 5. History of pulmonary embolism, on Xarelto. PROCEDURES PERFORMED DURING STAY: None. ADMISSION HISTORY: Ms. Cherry presented to the [facility] ER with complaint of headache for four days. Please see the admission history and physical for the remaining details. HOSPITAL COURSE: Ms. Cherry was admitted to the hospital with headache and subsequent discovery of an embolic stroke in the ER. Fortunately she had no significant residual deficits. Neurology consulted and recommended the addition of aspirin 81 mg to her current regimen which already includes Xarelto. They want to see her back in the office in 2-3 weeks. Her headache did persist throughout hospitalization, however, it was not significant enough to negatively impact her ability to function. She was cleared by physical therapy on the afternoon of 10/12/18 and was therefore discharged home that afternoon. DISCHARGE CONDITION: Stable. FOLLOW-UP: Prior to discharge an appointment was scheduled with [facility] on 10/19/18 at 9:30. DIET: Consistent carbohydrates. ACTIVITY: As tolerated. DISCHARGE MEDICATIONS: Please see below. ALLERGIES: Please see below. LABORATORY DATA: Please see below. IMAGING: Head CT, brain MRI, lower extremity Doppler ultrasound, carotid duplex ultrasound. TIME SPENT ON DISCHARGE: Greater than 20 minutes. Discharge Medications Scheduled Aspirin (Children's Aspirin) 81 Mg Tab.chew, 81 MG PO DAILY Ferrous Sulfate (Ferrous Sulfate) 325 Mg Tablet, 325 MG PO DAILY, (Reported) Lidocaine/Prilocaine (Lidocaine-Prilocaine Cream) 1 Cre Cre, 1 CRE EXT ASDIRECTED, (Reported) USES ON PORT EVERY OTHER MONDAY PRIOR TO CHEMO. Potassium Chloride (Potassium Chloride) 10 Meq Tab.er.prt, 10 MEQ PO DAILY, (Reported) Rivaroxaban (Xarelto) 20 Mg Tab, 20 MG PO QPM, (Reported) with food Scheduled PRN Hydrocodone/Acetaminophen ([place] 5-325 Tablet) 1 Tab Tab, 1 TAB PO Q8H PRN for PAIN, (Reported) Lorazepam (Lorazepam) 1 Mg Tablet, 1 MG PO BID PRN for ANXIETY, (Reported) Ondansetron HCl (Zofran) 8 Mg Tab, 8 MG PO BID PRN for NAUSEA, (Reported) Prochlorperazine Maleate (Prochlorperazine Maleate) 10 Mg Tab, 10 MG PO Q6H PRN for NAUSEA, (Reported) Zolpidem Tartrate (Zolpidem Tartrate) 5 Mg Tablet, 5 MG PO QPM PRN for INSOMNIA, (Reported) Allergies Coded Allergies: No Known Allergies (Unverified , 08/22/18) Jerome King MD October 24, 2018 08:23
== END 2018-10-12 16:28 | disposition home or self-care (01) | DRG 45 ==
LOC: M ED 11:36 → M ED INP 16:43 → M PCU 19:50
PROVIDERS: ADMIT Internal Medicine; ATTEND Family Medicine
DX: I63.9 Cerebral infarction, unspecified (principal); D61.810 Antineoplastic chemotherapy induced pancytopenia; C78.7 Secondary malignant neoplasm of liver and intrahepatic bile duct; C25.9 Malignant neoplasm of pancreas, unspecified; Z79.899 Other long term (current) drug therapy; Z86.711 Personal history of pulmonary embolism; E11.9 Type 2 diabetes mellitus without complications

== ENCOUNTER → 2018-11-08 | Outpatient (CLI) | payer BC ==
[~2018-11-08] MED LIST changes: +ASPI81CH8 PO; +FERR1TAB8 PO; +LORA1TAB12 PO; +POTA10TA16 PO; +ZOLP5TAB PO
--- NOTE | 2018-11-08 13:58 | REP ---
Thyroid sonography: History: Thyroid nodule. Thyromegaly. Findings: The thyroid isthmus is 0.4 cm thick. Right lobe dimensions by ultrasound are 4.8 x 1.6 x 1.2 cm. Left thyroid lobe measurements are 5.5 x 2.4 x 2.5 cm. There are multiple solid nodules and cysts noted bilaterally. There is a large complex nodule in the mid position of the left lobe measuring 4.0 x 1.8 x 2.4 cm. There is a complex nodule in the lower pole on the left measuring 1.7 x 1.6 x 1.9 cm. There is a 1.1 cm solid nodule and a 2.0 x 1.8 x 1.0 cm solid nodule occupying the lower pole of the right side of the gland. Impression: Multinodular goiter. Electronically Signed by Ritesh Almeida MD 11/08/2018 03:09 P
== END ==
LOC: M RAD 11:50
PROVIDERS: ATTEND Physician Assistant Medical
DX: E04.1 Nontoxic single thyroid nodule (principal)

== ENCOUNTER 2018-11-27 13:25 | Emergency (ER) | payer BC ==
[~2018-11-27] VITALS: Ht 154.9 cm; Wt 104.5 kg
[~2018-11-27 13:25] MED LIST changes: -LORA1TAB12 PO; +LORA1TAB4 PO
[2018-11-27 13:33] VITALS: BP 120/56
--- NOTE | 2018-11-27 14:10 | ECGEPIP ---
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
[2018-11-27 14:49] LABS: HEMATOCRIT 25.8 % (36.0-47.0); HEMOGLOBIN 8.1 g/dl (12.0-15.5); MEAN CORPUSCULAR HEMOGLOBIN 26.9 pg (27.0-33.0); MEAN CORPUSCULAR HGB CONC 31.4 g/dl (32.0-36.5); MEAN CORPUSCULAR VOLUME 85.7 fl (80.0-96.0); RED BLOOD COUNT 3.01 10^6/uL (4.00-5.40); WHITE BLOOD COUNT 2.6 10^3/uL (4.0-10.0)
--- NOTE | 2018-11-27 14:55 | REP ---
Clinical: Chest and abdominal pain. Technique: PA and lateral. Comparison: 06/04/2018. Findings: Trace left basilar atelectasis. Mediastinum and cardiac silhouette normal. Lolizh-G-Yesv with tip in the SVC. No effusion. No pneumothorax. Skeletal structures intact. Impression: Trace left basilar atelectasis. Electronically Signed by Pato Reyes MD 11/27/2018 02:47 P
[2018-11-27 14:58] LABS: INR 1.54; PROTHROMBIN TIME 18.2 SECONDS (11.8-14.0)
[2018-11-27 15:12] LABS: PLATELET COUNT, AUTOMATED 50 10^3/uL (150-450)
[2018-11-27 15:16] LABS: ALBUMIN 2.9 GM/DL (3.2-5.2); ALT/SGPT 45 U/L (12-78); BILIRUBIN,DIRECT 0.2 MG/DL (0.0-0.2); BILIRUBIN,TOTAL 0.5 MG/DL (0.2-1.0); BLOOD UREA NITROGEN 9 MG/DL (7-18); CALCIUM LEVEL 7.9 MG/DL (8.5-10.1); CARBON DIOXIDE LEVEL 26 MEQ/L (21-32); CHLORIDE LEVEL 102 MEQ/L (98-107); CREATININE FOR GFR 0.68 MG/DL (0.55-1.30); GLOMERULAR FILTRATION RATE > 60.0 (>51); GLUCOSE, FASTING 144 MG/DL (70-100); LIPASE 112 U/L (73-393); LYMPHOCYTES 22 % (16-52); MONOCYTES 2 % (0-8); NEUTROPHILS 73 % (35-75); POTASSIUM SERUM 3.4 MEQ/L (3.5-5.1); SODIUM LEVEL 134 MEQ/L (136-145); TOTAL PROTEIN 6.5 GM/DL (6.4-8.2)
[2018-11-27 15:17] LABS: ANISOCYTOSIS 1+; DOHLE BODIES 1+; HYPOCHROMASIA 1+; OVALOCYTES 1+; PLATELET ESTIMATE DECREASED (NORMAL); TEAR DROP CELLS 1+
[2018-11-27] MEDS ORDERED: POTASSIUM CHLORIDE 10 MEQ SR TABLET PO ONE (15:45)
== END 2018-11-27 16:36 | disposition home or self-care (01) ==
LOC: M ED 13:25
DX: R50.9 Fever, unspecified (principal); E11.9 Type 2 diabetes mellitus without complications; E66.9 Obesity, unspecified; C25.9 Malignant neoplasm of pancreas, unspecified; C78.7 Secondary malignant neoplasm of liver and intrahepatic bile duct; Z92.21 Personal history of antineoplastic chemotherapy; Z79.899 Other long term (current) drug therapy; Z79.82 Long term (current) use of aspirin; Z79.01 Long term (current) use of anticoagulants

== ENCOUNTER 2018-11-29 15:21 | Inpatient (IN) | payer BC ==
[~2018-11-29] VITALS: Ht 154.9 cm; Wt 105.1 kg
[2018-11-29] MEDS ORDERED: NS 1,000 ML IV SCH (15:27)
[2018-11-29] MEDS ORDERED: NS 1,000 ML IV ONE (15:45)
[2018-11-29 15:50] LABS: BASO % 0.9 % (0.0-1.0); HEMATOCRIT 26.4 % (36.0-47.0); HEMOGLOBIN 8.2 g/dl (12.0-15.5); LYMPH % 0.9 % (24.0-44.0); MEAN CORPUSCULAR HEMOGLOBIN 26.5 pg (27.0-33.0); MEAN CORPUSCULAR HGB CONC 31.1 g/dl (32.0-36.5); MEAN CORPUSCULAR VOLUME 85.2 fl (80.0-96.0); MONO % 0.9 % (0.0-5.0); NEUTROPHILS % 96.4 % (36.0-66.0)
--- NOTE | 2018-11-29 15:56 | ECGEPIP ---
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
[2018-11-29 15:59] LABS: INR 1.36; PROTHROMBIN TIME 16.5 SECONDS (11.8-14.0)
--- NOTE | 2018-11-29 16:04 | REP ---
Clinical: Sepsis. Shock. Technique: Portable semiupright. Findings: Mediastinum and cardiac silhouette are stable. Uqepig-O-Lurr with tip in the SVC. Lung baer demonstrate chronic changes with superimposed linear bibasilar atelectasis. No effusion. No pneumothorax. Impression: Linear bibasilar atelectasis. Electronically Signed by Pato Reyes MD 11/29/2018 03:55 P
[2018-11-29 16:09] LABS: PLATELET COUNT, AUTOMATED 40 10^3/uL (150-450); WHITE BLOOD COUNT 1.1 10^3/uL (4.0-10.0)
[2018-11-29 16:25] LABS: ALBUMIN 2.9 GM/DL (3.2-5.2); ALT/SGPT 42 U/L (12-78); BILIRUBIN,DIRECT 0.7 MG/DL (0.0-0.2); BILIRUBIN,TOTAL 1.3 MG/DL (0.2-1.0); BLOOD UREA NITROGEN 8 MG/DL (7-18); C REACTIVE PROTEIN QUANTITATIV 6.74 MG/DL (0.00-0.30); CARBON DIOXIDE LEVEL 18 MEQ/L (21-32); CHLORIDE LEVEL 107 MEQ/L (98-107); CREATININE FOR GFR 0.82 MG/DL (0.55-1.30); GLOMERULAR FILTRATION RATE > 60.0 (>51); GLUCOSE, FASTING 101 MG/DL (70-100); POTASSIUM SERUM 3.4 MEQ/L (3.5-5.1); SODIUM LEVEL 136 MEQ/L (136-145); THYROID STIMULATING HORMONE 0.868 uIU/ML (0.358-3.740); TOTAL PROTEIN 5.9 GM/DL (6.4-8.2)
[2018-11-29 16:34] LABS: VENOUS BASE EXCESS -4.5 (-2.0-2.0); VENOUS O2 SATURATION 99.2 % (60.0-80.0); VENOUS PARTIAL PRESSURE CO2 28.9 mmHg (38.0-50.0); VENOUS PARTIAL PRESSURE O2 149.7 mmHg (30.0-50.0); VENOUS PH 7.436 UNITS (7.330-7.430); VENOUS STANDARD HCO3 20.7 MEQ/L; VENOUS TOTAL CO2 19.9 MEQ/L (24.0-28.0)
[2018-11-29] MEDS ORDERED: POTA1TAB14 PO (16:40)
[2018-11-29] MEDS ORDERED: ASPI81TA85 PO (16:40)
[2018-11-29] MEDS ORDERED: [UNRECOGNIZED DRUG - CODE] IV (16:51)
[2018-11-29] MEDS ORDERED: ATRO0.05 IVP (16:51)
[2018-11-29] MEDS ORDERED: ATIV2INJ5 IVP (16:51)
[2018-11-29] MEDS ORDERED: PALO0.252 IV (16:51)
[2018-11-29] MEDS ORDERED: [UNRECOGNIZED DRUG - CODE] IV (16:51)
[2018-11-29] MEDS ORDERED: EMEN150S IV (16:51)
[2018-11-29] MEDS ORDERED: [UNRECOGNIZED DRUG - CODE] IV (16:51)
[2018-11-29] MEDS ORDERED: OLAN10TA2 PO (16:51)
[2018-11-29] MEDS ORDERED: [UNRECOGNIZED DRUG - CODE] IV (16:51)
[2018-11-29] MEDS ORDERED: PEG6SYR SC (16:51)
[2018-11-29] MEDS ORDERED: DEXA10VL IV (16:51)
--- NOTE | 2018-11-29 17:01 | HPEPDOC ---
[facility] Medical History & Physical Date of Admission Nov 29, 2018 Date of Service: Nov 29, 2018 History and Physical CHIEF COMPLAINT: Fever for the last 24 hours HISTORY OF PRESENT ILLNESS: Patient is a 58 year old female with a past medical history significant for Stage IV pancreatic adenocarcinoma with metastasis to the liver, history of pulmonary embolism, and chemotherapy induced neutropenia who presented to the [facility] ER couple of days back with history of having febrile episodes. She was checked in the ER. Cultures were done and sent back home. She presents again today because since yesterday she has had fever, which the daughter documented as 102, as were the noted while she was having this febrile episode. She was slightly confused as well. The patient denies any other complaints. Denies any chest pain, any headaches, any abdominal pain, any lower extremity swelling. The patient denies any nausea, but stated that she was having some heartburns. Patient states that she also had one episode of diarrhea while she was having this fever. Patient denies any vision changes, any loss of consciousness. Patient's last chemotherapy was one week back. Patient denies any sick contacts. PAST MEDICAL HISTORY: 1. Pancreatic Adenocarcinoma with metastasis to the liver 2. H/O Pulmonary Embolism 3. Chemotherapy induced Neutropenia 4. DMII 5. Morbid Obesity PAST SURGICAL HISTORY: 1. Cholecystectomy 2. Section 3. Abdominal Hysterectomy SOCIAL HISTORY: Patient is currently and lives at home with her . She denies tobacco use. She admits to marijuana use for nausea and pain related to her cancer. She denies recent travel. FAMILY HISTORY: Patient has a father who of a heart attack at the age of 54 and a brother who of a heart attack at 56. No family history of TIA or str brigid ALLERGIES: Please see below. REVIEW OF SYSTEMS: CONSTITUTIONAL: Admits to fatigue. Denies unintentional weight loss or weight gain. Denies nightsweats HEENT: Denies difficulty swallowing CARDIOVASCULAR: Denies chest pain, palpitations, or feelings of the heart racing. RESPIRATORY: Denies shortness of breath. Denies cough. Denies wheezing GASTROINTESTINAL: Denies abdominal pain. Admits to nausea which is chronic GENITOURINARY: Denies difficulty with urination. Denies increased frequency SKIN: Denies rashes or lesions MUSCULOSKELETAL: Denies muscle weakness. Denies muscle pain NEUROLOGICAL: Denies changes in speech or gait. Denies changes in sensation. Admits to difficulty focusing. PSYCHIATRIC: Mood and affect appear appropriate for situation ENDOCRINE: Denies heat or cold intolerance HEMATOLOGIC/LYMPHATIC: Denies easy bruising or bleeding. Admits to history of clotting/PE HOME MEDICATIONS: Please see below. PHYSICAL EXAMINATION: VITAL SIGNS: On my encounter Temperature 99, pulse 90, respiratory rate 18, blood pressure 135/80, pulse oximetry 100% on room air. GENERAL APPEARANCE: Patient is awake, alert, and oriented. Appears in no acute distress. Lying on stretcher comfortably. HEENT: Atrumatic normocephalic. Eyes are nonicteric. Trachea is midline. No palpable cervical lymphadenopathy. CARDIOVASCULAR: Normal S1, S2. Regular rate and rhythm. No clicks rubs or murmurs. No carotid bruits LUNGS: Clear vesicular breath sounds bilaterally with good respiratory effort. No wheezes, rhonci, or rales. ABDOMEN: Soft, nondistended. Nontender to palpation of all 4 quadrants. No rebound tenderness or guarding. Positive bowel sounds throughout MUSCULOSKELETAL: 5/5 muscle strength testing in bilateral upper and lower extremities EXTREMITIES: No edema. 2+ posterior tibial pulses bilaterally. 2+ radial pulses bilaterally NEUROLOGICAL: No focal neurological deficits. CNII-XII intact. Cerebellar testing and finger to nose testing normal. Visual field testing within normal limits. PSYCHIATRIC: Mood and affect appear appropriate Laboratory Tests 11/29/18 15:39 Red Blood Count 3.10 L, Mean Corpuscular Volume 85.2, Mean Corpuscular Hemo globin 26.5 L, Mean Corpuscular Hemoglobin Concent 31.1 L, Red Cell Distribution Width 18.2 H, Neutrophils (%) (Auto) 96.4 H, Lymphocytes (%) (Auto) 0.9 L, Monocytes (%) (Auto) 0.9, Eosinophils (%) (Auto) 0.0, Basophils (%) (Auto) 0.9, Neutrophils # (Auto) 1.0 L, Lymphocytes # (Auto) 0.0 L, Monocytes # (Auto) 0.0, Eosinophils # (Auto) 0.0, Basophils # (Auto) 0.0 IMAGING: Reviewed Assessment and plan Patient is a 58 year old female with a past medical history significant for pancreatic adenocarcinoma with metastasis to the liver, h/o pulmonary embolism, DMII, and chemotherapy induced neutropenia who presented with complaint of fever for the last 24 hours PLAN: 1. Fever: Given patient's recent chemotherapy, history of pancreatic cancer and leukopenia. The patient will be admitted to inpatient and started on IV antibiotics with IV vancomycin and IV meropenem. Blood cultures, urine cultures will be sent. Chest x-ray revealed no pathology noted. MediPort site looks normal. No erythema noted. The patient's abdomen is completely benign, so there is no need of doing a CT abdomen. Patient denies any diarrhea at this time, but if she has any loose stools. Will send for C. difficile. No signs of skin infection on examination. Will continue monitoring cultures and de-escalate the antibiotics appropriately. When necessary Tylenol. 2. Pancreatic Adenocarcinoma with Metastasis to Liver : Patient is currently followed by Oncology , Continue antiemetic and [place] 3. Pancytopenia : Secondary to patients chemotherapy. Currently, the patient has left shift with neutropenia with neutrophil count of around 900. Total leukocyte count is thousand . Continue iron supplementation 4. Lactic acidosis. As per the daughter, the patient has not been eating and drinking okay for the last 48 hours. Mucous membranes are dry and eyes look sunken with decreased capillary refill. The patient got 1 L of IV fluids in the ER and will continue at 100 mL/h and repeat lactic acid and 4 hours. No acid base major abnormality at this time. 5. Severe pulmonary embolism. We'll continue the patient's xeralto DVT prophylaxis : Xarelto 20 mg Disposition. Patient will be admitted to inpatient for expected length of stay greater than 2 per night. The patient has lactic acidosis is febrile with leukopenia and is high risk of deterioration Vital Signs Vital Signs Date Time Temp Pulse Resp B/P (MAP) Pulse Ox O2 Delivery O2 Flow Rate FiO2 11/29/18 15:41 133 25 132/63 (86) 95 Room Air 11/29/18 15:36 100.5 Laboratory Data Labs 24H Laboratory Tests 2 11/29/18 15:39: Immature Granulocyte % (Auto) 0.9, White Blood Count 1.1L, Red Blood Count 3.10L, Hemoglobin 8.2L, Hematocrit 26.4L, Mean Corpuscular Volume 85.2, Mean Corpuscular Hemoglobin 26.5L, Mean Corpuscular Hemoglobin Concent 31.1L, Red Cell Distribution Width 18.2H, Platelet Count 40L, Neutrophils (%) (Auto) 96.4H, Lymphocytes (%) (Auto) 0.9L, Monocytes (%) (Auto) 0.9, Eosinophils (%) (Auto) 0.0, Basophils (%) (Auto) 0.9, Neutrophils # (Auto) 1.0L, Lymphocytes # (Auto) 0.0L, Monocytes # (Auto) 0.0, Eosinophils # (Auto) 0.0, Basophils # (Auto) 0.0, Nucleated Red Blood Cells % (auto) 5.6H, Immature Platelet Fraction 6.9, Prothrombin Time 16.5H, Prothromb Time International Ratio 1.36, Anion Gap 11, Glomerular Filtration Rate > 60.0, Lactic Acid Level 3.8*H, Calcium Level 8.0L, Aspartate Amino Transf (AST/SGOT) 63H, Alanine Aminotransferase (ALT/SGPT) 42, Alkaline Phosphatase 297H, Total Bilirubin 1.3#H, Direct Bilirubin 0.7H, C- Reactive Protein, Quantitative 6.74H, Total Protein 5.9L, Albumin 2.9L, Albumin/Globulin Ratio 0.97L, Thyroid Stimulating Hormone (TSH) 0.868 11/29/18 16:28: Blood Gas Bicarbonate Standard 20.7, Venous Blood pH 7.436H, Venous Blood Partial Pressure CO2 28.9L, Venous Blood Partial Pressure O2 149.7H, Venous Blood Total Carbon Dioxide 19.9L, Venous Blood HCO3 19.0L, Venous Blood Oxygen Saturation 99.2H, Venous Blood Base Excess -4.5L CBC/BMP Laboratory Tests 11/29/18 15:39 Red Blood Count 3.10 L, Mean Corpuscular Volume 85.2, Mean Corpuscular Hemoglobin 26.5 L, Mean Corpuscular Hemoglobin Concent 31.1 L, Red Cell Dis tribution Width 18.2 H, Neutrophils (%) (Auto) 96.4 H, Lymphocytes (%) (Auto) 0.9 L, Monocytes (%) (Auto) 0.9, Eosinophils (%) (Auto) 0.0, Basophils (%) (Auto) 0.9, Neutrophils # (Auto) 1.0 L, Lymphocytes # (Auto) 0.0 L, Monocytes # (Auto) 0.0, Eosinophils # (Auto) 0.0, Basophils # (Auto) 0.0 Microbiology Microbiology 11/29/18 Blood Culture, Received Pending 11/29/18 Blood Culture, Received Pending Home Medications Scheduled Aspirin (Aspir 81) 81 Mg Tablet.dr, 81 MG PO QHS Atropine Sulfate (Atropine Sulfate) 0.05 Mg/1 Ml Syringe, 0.25 MG IVP Q2WK Dexamethasone (Dexamethasone 10 mg/ml Vial) 10 Mg/1 Ml Vial, 12 MG IV Q2WK Ferrous Sulfate (Ferrous Sulfate) 325 Mg Tablet, 325 MG PO QHS Fluorouracil (Fluorouracil) 1 Gm/20 Ml Vial, 4,600 MG IV Q2WK OVER 46 HOURS Fosaprepitant (Emend) 150 Mg Vial, 150 MG IV Q2WK Irinotecan HCl (Irinotecan HCl) 100 Mg/5 Ml Vial, 345 MG IV Q2WK Leucovorin Calcium (Leucovorin Calcium) 10 Mg/1 Ml Vial, 766 MG IV Q2WK Olanzapine (Olanzapine) 10 Mg Tablet, 10 MG PO Q2WK Oxaliplatin (Oxaliplatin) 50 Mg Vial, 153 MG IV Q2WK Palonosetron HCl (Palonosetron HCl) 0.25 Mg/5 Ml Vial, 0.25 MG IV Q2WK Pegfilgastrim (Neulasta) 6 Mg/0.6 Ml Syringe, 6 MG SC ASDIRECTED APPLY ON DAY 3 OF CHEMO TREATMENT Potassium Chloride (Potassium Chloride) 20 Meq Tablet.er, 20 MEQ PO DAILY Rivaroxaban (Xarelto) 20 Mg Tab, 20 MG PO QHS Scheduled PRN Hydrocodone/Acetaminophen ([place] 5-325 Tablet) 1 Tab Tab, 1 TAB PO Q8H PRN for PAIN Lorazepam (Ativan) 2 Mg/1 Ml Vial, 1 MG IVP for ANXIETY Ondansetron HCl (Zofran) 8 Mg Tab, 8 MG PO BID PRN for NAUSEA Prochlorperazine Maleate (Prochlorperazine Maleate) 10 Mg Tab, 10 MG PO Q6H PRN for NAUSEA Zolpidem Tartrate (Zolpidem Tartrate) 5 Mg Tablet, 5 MG PO QHS PRN for INSOMNIA Allergies Coded Allergies: No Known Allergies (Unverified , 08/22/18) A-FIB/CHADSVASC A-FIB History Current/History of A-Fib/PAF?: No Current PO Anticoag Therapy: No ADRIENNE BARLOW MD Nov 29, 2018 17:01
[2018-11-29] MEDS ORDERED: MAALOX 30 ML SUSP *UDC PO PRN (17:15)
[2018-11-29] MEDS ORDERED: MOM 30ML SUSPENSION UDC PO PRN (17:15)
[2018-11-29] MEDS: MEROPENEM INJ 1 GM in IV 1 EA IV SCH (18:34)
[2018-11-29] MEDS: RIVAROXABAN 20 MG TAB (XARELTO) PO SCH (18:34)
[2018-11-29] MEDS: NS 1,000 ML IV SCH (19:17)
[2018-11-29] MEDS: VANCOMYCIN HCL 1,000 MG, VIAL MATE ADAPTER 1 EACH in D5W 250 ML IV SCH (19:43)
[2018-11-29] MEDS: ACETAMINOPHEN TAB 650MG DOSE (2X325MG) PO PRN (20:03)
[2018-11-29 20:15] VITALS: BP 108/58
[2018-11-29] MEDS: DOCUSATE SODIUM 100 MG CAP PO SCH (21:15)
--- NOTE | 2018-11-29 21:15 | PHACANCOPD ---
PHARMACY VANCOMYCIN DOSING Pt Demographics Demographics Patient Age:58 , Weight:104.550 , Gender: female Adjusted Body Weight Date: 11/29/18, Adjusted Body Weight: [70.5] Kg Events Past 24 Hours Events Past 24 Hours: NO: Dialysis, Diuretic Therapy, Change in CrCl, Fever, Elevation in WBC, Pending Diagnostics, Pending Procedures, Other Vancomycin Vancomycin indication: febrile neutropenia Vancomycin Target Ranges: 15-20 mcg/ml Vancomycin Load Y/N: No Load Dose Date Time Vancomycin Load Dose: Date: Time: Vancomycin Dose Date: 11/29/18. Current Vancomycin Dose: [1g IV q8h @20] Intermittent Dosing?: No Labs Labs Item Value Date Time White Blood Count 1.1 10^3/uL L 11/29/18 1539 Lactic Acid Level 3.8 MMOL/L *H 11/29/18 1539 Creatinine 0.82 MG/DL 11/29/18 1539 Micro Microbiology 11/29/18 Blood Culture, Received Pending 11/29/18 Blood Culture, Received Pending 11/29/18 MRSA Screen, Received Pending Creatinine Clearance Date:11/29/18. Creatinine Clearance: [~82 ml/min using adjusted BW]. Pending Labs Vanco trough scheduled 12/01 @11:00 Assessment and Plan Maintaining Current Dose?: Yes Reason for dose change: No Dose Change Pharmacist Note Pharmacist Note Date: 11/29/18. Pharmacist note: pt has been started on meropenem and vancomycin for sepsis. Based on prior consults, I have started her on vancomycin 1g IV q8h. Blood cultures and MRSA screen are pending. I have a trough scheduled for Monday morning. We will continue to monitor and make adjustments as necessary. Ronni Lopez Pharm.D. Nov 29, 2018 21:15
[2018-11-30] VITALS (8 sets, daily range): BP systolic 87–127; BP diastolic 47–64
[2018-11-30] MEDS: MEROPENEM INJ 1 GM in IV 1 EA IV SCH ×4 (01:21→17:56)
[2018-11-30] MEDS: VANCOMYCIN HCL 1,000 MG, VIAL MATE ADAPTER 1 EACH in D5W 250 ML IV SCH ×3 (03:46→19:22)
[2018-11-30 05:19] LABS: HEMATOCRIT 25.5 % (36.0-47.0); HEMOGLOBIN 7.9 g/dl (12.0-15.5); MEAN CORPUSCULAR HEMOGLOBIN 26.2 pg (27.0-33.0); MEAN CORPUSCULAR VOLUME 84.4 fl (80.0-96.0); RED BLOOD COUNT 3.02 10^6/uL (4.00-5.40); WHITE BLOOD COUNT 4.8 10^3/uL (4.0-10.0)
[2018-11-30 05:24] LABS: PLATELET COUNT, AUTOMATED 63 10^3/uL (150-450)
[2018-11-30 05:46] LABS: ALBUMIN 2.7 GM/DL (3.2-5.2); BILIRUBIN,TOTAL 0.7 MG/DL (0.2-1.0); CALCIUM LEVEL 7.6 MG/DL (8.5-10.1); CREATININE FOR GFR 1.17 MG/DL (0.55-1.30); GLOMERULAR FILTRATION RATE 50.4 (>51); POTASSIUM SERUM 3.7 MEQ/L (3.5-5.1); TOTAL PROTEIN 6.3 GM/DL (6.4-8.2)
[2018-11-30] MEDS: ACETAMINOPHEN TAB 650MG DOSE (2X325MG) PO PRN (08:18)
[2018-11-30] MEDS: NS 1,000 ML IV SCH ×3 (08:22→22:13)
[2018-11-30] MEDS: ONDANSETRON 4MG/2ML VIAL (J2405) IV PRN (08:34)
[2018-11-30] MEDS: DOCUSATE SODIUM 100 MG CAP PO SCH ×2 (09:00→19:22)
--- NOTE | 2018-11-30 11:25 | IPNPDOC ---
Subjective Date Seen The patient was seen on 11/30/18. Subjective Chief Complaint/HPI Pt this morning states she has had one loose stool yesterday and two this morning, watery, brown. Denies abd pain, bloating, N/V. No sick contacts. General: Reports: Fatigue Constitutional: Reports: Fever; Denies: Chills Pulmonary: Denies: Dyspnea, Cough Cardiovascular: Denies: Chest Pain, Palpitations Gastrointestinal: Reports: Diarrhea; Denies: Nausea, Vomiting, Abdominal Pain Neurological: Denies: Weakness Psych: Reports: Mood Normal Objective Physical Examination General Exam: Positive: Alert, No Acute Distress ENT Exam: Positive: Mucous membr. moist/pink Chest Exam: Positive: Clear to auscultation, Normal air movement Heart Exam: Positive: Rate Normal, Normal S1, Normal S2 Abdomen Exam: Positive: Normal bowel sounds, Soft; Negative: Tenderness Extremity Exam: Negative: Edema Neuro Exam: Positive: Normal Speech Psych Exam: Positive: Mood NL Assessment /Plan Assessment Patient seen, states she is feeling a bit better but had some borderline blood pressure readings today, with several loose stools. Definitive blood cultures still pending. I ordered a bolus of IV saline and increased her baseline fluids. This evening she had an even lower blood pressure, but nursing reported that it had already improved, so the further bolus was cancelled, and nursing will continue to monitor. MOLST form filled out, and DNR ordered per patient preference. -- CDT Problems (1) Fever Status: Acute Problem Specific Plan: Monitor Clinically Problem Text: Etiology unclear at this time, Aleman cultures pending 1 prelim GPC clusters. on Vanco/meropenam Tmax 100.7 (2) Pancreatic carcinoma Status: Chronic Response to Treatment: Stable Problem Specific Plan: Monitor Clinically Problem Text: Chemotherapy last 11/20. Mgmt per [facility] Onc (3) Hx of pulmonary embolus Status: Chronic Problem Text: Cont Xarelto Plan/VTE VTE Prophylaxis Ordered?: Yes VS, I&O, 24H, Fishbone Vital Signs/I&O Vital Signs Date Time Temp Pulse Resp B/P (MAP) Pulse Ox O2 Delivery O2 Flow Rate FiO2 11/30/18 08:50 99.5 11/30/18 08:00 95 20 105/56 (72) 95 11/29/18 15:41 Room Air I&O- Last 24 Hours up to 6 AM 11/30/18 06:00 Intake Total 850 ml Output Total 300 ml Balance 550 ml Laboratory Data 24H LABS Laboratory Tests 2 11/29/18 15:39: Immature Granulocyte % (Auto) 0.9, White Blood Count 1.1L, Red Blood Count 3.10L, Hemoglobin 8.2L, Hematocrit 26.4L, Mean Corpuscular Volume 85.2, Mean Corpuscular Hemoglobin 26.5L, Mean Corpuscular Hemoglobin Concent 31.1L, Red Cell Distribution Width 18.2H, Platelet Count 40L, Neutrophils (%) (Auto) 96.4H, Lymphocytes (%) (Auto) 0.9L, Monocytes (%) (Auto) 0.9, Eosinophils (%) (Auto) 0.0, Basophils (%) (Auto) 0.9, Neutrophils # (Auto) 1.0L, Lymphocytes # (Auto) 0.0L, Monocytes # (Auto) 0.0, Eosinophils # (Auto) 0.0, Basophils # (Auto) 0.0, Nucleated Red Blood Cells % (auto) 5.6H, Immature Platelet Fraction 6.9, Prothrombin Time 16.5H, Prothromb Time International Ratio 1.36, Anion Gap 11, Glomerular Filtration Rate > 60.0, Lactic Acid Level 3.8*H, Calcium Level 8.0L, Aspartate Amino Transf (AST/SGOT) 63H, Alanine Aminotransferase (ALT/SGPT) 42, Alkaline Phosphatase 297H, Total Bilirubin 1.3#H, Direct Bilirubin 0.7H, C-[place] ctive Protein, Quantitative 6.74H, Total Protein 5.9L, Albumin 2.9L, Albumin/Globulin Ratio 0.97L, Thyroid Stimulating Hormone (TSH) 0.868 11/29/18 16:28: Blood Gas Bicarbonate Standard 20.7, Venous Blood pH 7.436H, Venous Blood Partial Pressure CO2 28.9L, Venous Blood Partial Pressure O2 149.7H, Venous Blood Total Carbon Dioxide 19.9L, Venous Blood HCO3 19.0L, Venous Blood Oxygen Saturation 99.2H, Venous Blood Base Excess -4.5L 11/29/18 21:22: Bedside Glucose (Misc Panel) 141H 11/29/18 22:10: Lactic Acid Level 1.5 11/30/18 05:07: Nucleated Red Blood Cells % (auto) 0.4H, Anion Gap 11, Glomerular Filtration Rate 50.4L, Lactic Acid Level 3.5*H, Blood Urea Nitrogen 11, Creatinine 1.17, Sodium Level 137, Potassium Level 3.7, Chloride Level 106, Carbon Dioxide Level 20L, Calcium Level 7.6L, Aspartate Amino Transf (AST/SGOT) 47H, Alanine Aminotransferase (ALT/SGPT) 40, Alkaline Phosphatase 200H, Total Bilirubin 0.7, Total Protein 6.3L, Albumin 2.7L, Albumin/Globulin Ratio 0.75L 11/30/18 09:35: Lactic Acid Followup at 4 Hours 2.4*H CBC/BMP Laboratory Tests 11/29/18 15:39 Red Blood Count 3.10 L, Mean Corpuscular Volume 85.2, Mean Corpuscular Hemoglobin 26.5 L, Mean Corpuscular Hemoglobin Concent 31.1 L, Red Cell Distribution Width 18.2 H, Neutrophils (%) (Auto) 96.4 H, Lymphocytes (%) (Auto) 0.9 L, Monocytes (%) (Auto) 0.9, Eosinophils (%) (Auto) 0.0, Basophils (%) (A uto) 0.9, Neutrophils # (Auto) 1.0 L, Lymphocytes # (Auto) 0.0 L, Monocytes # (Auto) 0.0, Eosinophils # (Auto) 0.0, Basophils # (Auto) 0.0 11/30/18 05:07 Red Blood Count 3.02 L, Mean Corpuscular Volume 84.4, Mean Corpuscular Hemoglobin 26.2 L, Mean Corpuscular Hemoglobin Concent 31.0 L, Red Cell Distribution Width 18.6 H, Calcium Level 7.6 L, Aspartate Amino Transf (AST/SGOT) 47 H, Alanine Aminotransferase (ALT/SGPT) 40, Alkaline Phosphatase 200 H, Total Bilirubin 0.7, Total Protein 6.3 L, Albumin 2.7 L Microbiology Microbiology 11/29/18 Blood Culture, Received Pending 11/29/18 Blood Culture - Preliminary, Resulted 11/29/18 Blood Culture, Received Pending 11/30/18 Gastrointestinal Tract Panel (PCR) - Final, Complete 11/29/18 MRSA Screen, Received Pending TAMIR SINGLETON PA-C Nov 30, 2018 11:25 TIEN ZAMUDIO DO Dec 01, 2018 00:09
[2018-11-30] MEDS ORDERED: NS 500 ML IV ONE (15:00)
[2018-11-30] MEDS: LOPERAMIDE 2 MG CAPLET PO PRN (16:46)
[2018-11-30] MEDS: RIVAROXABAN 20 MG TAB (XARELTO) PO SCH (17:55)
[2018-11-30] MEDS: NORCO, ANEXSIA 5/325MG TABLET (HYDROcodone/ACETAMINOPHEN) PO PRN (17:55)
--- NOTE | 2018-11-30 20:08 | PHACANCOPD ---
PHARMACY VANCOMYCIN DOSING Pt Demographics Demographics Patient Age:58 , Weight:102.400 , Gender: female Adjusted Body Weight Date: 11/29/18, Adjusted Body Weight: [70.5] Kg Events Past 24 Hours Events Past 24 Hours: YES: Change in CrCl Vancomycin Vancomycin indication: febrile neutropenia Vancomycin Target Ranges: 15-20 mcg/ml Vancomycin Load Y/N: No Load Dose Date Time Vancomycin Load Dose: Date: Time: Vancomycin Dose Date: 11/30/18. Current Vancomycin Dose: [1G IV Q12H @0300] Date: 11/29/18. Current Vancomycin Dose: [1g IV q8h @20] Intermittent Dosing?: No Labs Labs Item Value Date Time Vancomycin Level Trough 23.6 UG/ML H 11/30/18 1850 Item Value Date Time White Blood Count 1.1 10^3/uL L 11/29/18 1539 White Blood Count 4.8 10^3/uL 11/30/18 0507 Creatinine 1.17 MG/DL 11/30/18 0507 Creatinine 0.82 MG/DL 11/29/18 1539 Micro Microbiology 11/29/18 Blood Culture, Received Pending 11/29/18 Blood Culture - Preliminary, Resulted 11/29/18 Blood Culture - Preliminary, Resulted 11/30/18 Gastrointestinal Tract Panel (PCR) - Final, Complete 11/29/18 MRSA Screen, Received Pending Creatinine Clearance Date:11/29/18. Creatinine Clearance: [~82 ml/min using adjusted BW]. Pending Labs Vanco trough scheduled 12/01 @14:00 Assessment and Plan Maintaining Current Dose?: No Reason for dose change: Trough too high Pharmacist Note Pharmacist Note Date: 11/30/18. Pharmacist note: PT trough came back @ 18:50 at 23.6mcg/ml. The patients scr has increased to 1.17mg/dl. The 12:00 dose was administered at 15:30. Dosing will be changed to 1g IV every 12 hours starting 12/01 @03:00. Another trough is scheduled for 12/01/18 @14:00. We will continue to monitor and adjust the dose as needed. Date: 11/29/18. Pharmacist note: pt has been started on meropenem and vancomycin for sepsis. Based on prior consults, I have started her on vancomycin 1g IV q8h. Blood cultures and MRSA screen are pending. I have a trough scheduled for Monday. We will continue to monitor and make adjustments as necessary. LEE BARCLAY PHARMACY Nov 30, 2018 20:08
[2018-12-01] VITALS (17 sets, daily range): BP systolic 102–120; BP diastolic 55–67; O2SAT 93–98
[2018-12-01] MEDS ORDERED: NS 1,000 ML IV ONE
[2018-12-01] MEDS: MEROPENEM INJ 1 GM in IV 1 EA IV SCH ×3 (01:53→17:26)
[2018-12-01] MEDS: VANCOMYCIN HCL 1,000 MG, VIAL MATE ADAPTER 1 EACH in D5W 250 ML IV SCH ×2 (03:16→15:12)
[2018-12-01 05:53] LABS: MEAN CORPUSCULAR HEMOGLOBIN 26.2 pg (27.0-33.0); MEAN CORPUSCULAR HGB CONC 30.5 g/dl (32.0-36.5); MEAN CORPUSCULAR VOLUME 85.9 fl (80.0-96.0); RED BLOOD COUNT 2.56 10^6/uL (4.00-5.40); WHITE BLOOD COUNT 2.2 10^3/uL (4.0-10.0)
[2018-12-01 05:54] LABS: HEMOGLOBIN 6.7 g/dl (12.0-15.5); PLATELET COUNT, AUTOMATED 44 10^3/uL (150-450)
[2018-12-01 06:14] LABS: ALBUMIN 2.3 GM/DL (3.2-5.2); ALT/SGPT 28 U/L (12-78); BILIRUBIN,TOTAL 0.4 MG/DL (0.2-1.0); BLOOD UREA NITROGEN 8 MG/DL (7-18); CALCIUM LEVEL 6.8 MG/DL (8.5-10.1); CARBON DIOXIDE LEVEL 21 MEQ/L (21-32); CHLORIDE LEVEL 108 MEQ/L (98-107); CREATININE FOR GFR 0.59 MG/DL (0.55-1.30); GLOMERULAR FILTRATION RATE > 60.0 (>51); GLUCOSE, FASTING 95 MG/DL (70-100); POTASSIUM SERUM 3.2 MEQ/L (3.5-5.1); SODIUM LEVEL 137 MEQ/L (136-145); TOTAL PROTEIN 5.5 GM/DL (6.4-8.2)
[2018-12-01 07:13] LABS: LYMPHOCYTES 12 % (16-52); MONOCYTES 7 % (0-8); NEUTROPHILS 80 % (35-75); PLATELET ESTIMATE MARKED DECREASE (NORMAL)
[2018-12-01 07:14] LABS: ANISOCYTOSIS 2+; OVALOCYTES 1+; POIKILOCYTOSIS 1+
[2018-12-01] MEDS: DOCUSATE SODIUM 100 MG CAP PO SCH ×2 (08:11→21:00)
[2018-12-01] MEDS: LACTOBACILLUS ACIDOPHILUS CAP (BACID) PO SCH (08:13)
[2018-12-01] MEDS: LOPERAMIDE 2 MG CAPLET PO PRN (08:13)
[2018-12-01] MEDS ORDERED: POTASSIUM CHLORIDE 10 MEQ SR TABLET PO ONE (11:00)
[2018-12-01] MEDS: ACETAMINOPHEN TAB 650MG DOSE (2X325MG) PO PRN (11:13)
[2018-12-01] MEDS: NS 1,000 ML IV SCH (12:34)
[2018-12-01 14:17] LABS: HEMATOCRIT 25.2 % (36.0-47.0); HEMOGLOBIN 7.6 g/dl (12.0-15.5)
--- NOTE | 2018-12-01 15:22 | PHACANCOPD ---
PHARMACY VANCOMYCIN DOSING Pt Demographics Demographics Patient Age:58 , Weight:103.000 , Gender: female Adjusted Body Weight Date: 11/29/18, Adjusted Body Weight: [70.5] Kg Events Past 24 Hours Events Past 24 Hours: YES: Change in CrCl Vancomycin Vancomycin indication: febrile neutropenia Vancomycin Target Ranges: 15-20 mcg/ml Vancomycin Load Y/N: No Load Dose Date Time Vancomycin Load Dose: Date: Time: Vancomycin Dose Date: 12/01/18. Current Vancomycin Dose: [750MG IV Q8H @23] Date: 11/30/18. Current Vancomycin Dose: [1G IV Q12H @0300] Date: 11/29/18. Current Vancomycin Dose: [1g IV q8h @20] Intermittent Dosing?: No Labs Labs Item Value Date Time Creatinine 1.17 MG/DL 11/30/18 0507 Creatinine 0.59 MG/DL 12/01/18 0500 Vancomycin Level Trough 23.6 UG/ML H 11/30/18 1850 Vancomycin Level Trough 13.9 UG/ML 12/01/18 1402 White Blood Count 4.8 10^3/uL 11/30/18 0507 White Blood Count 2.2 10^3/uL L 12/01/18 0500 Micro Microbiology 11/29/18 Blood Culture - Preliminary, Resulted No growth after 24 hours . All specim... 11/29/18 Blood Culture - Preliminary, Resulted 11/29/18 Blood Culture - Preliminary, Resulted 11/30/18 Gastrointestinal Tract Panel (PCR) - Final, Complete 11/29/18 MRSA Screen - Final, Complete Creatinine Clearance Date:12/01/18. Creatinine Clearance: [~83.9ML/MIN]. Date:11/29/18. Creatinine Clearance: [~82 ml/min using adjusted BW]. Pending Labs Vanco trough scheduled 12/02 @ Assessment and Plan Maintaining Current Dose?: No Reason for dose change: Trough too low Pharmacist Note Pharmacist Note Date: 12/01/18. Pharmacist note: PT trough came back @13.9mcg/ml. The scr has improved to 0.59mg/dl. Dosing will change to 750mg iv q8 hours starting 12/01/18 @23:00. A trough is scheduled for 12/02/18 @ 14:00. We will continue to monitor and adjust the dose as needed. Date: 11/30/18. Pharmacist note: PT trough came back @ 18:50 at 23.6mcg/ml. The patients scr has increased to 1.17mg/dl. The 12:00 dose was administered at 15:30. Dosing will be changed to 1g IV every 12 hours starting 12/01 @03:00. Another trough is scheduled for 12/01/18 @14:00. We will continue to monitor and adjust the dose as needed. Date: 11/29/18. Pharmacist note: pt has been started on meropenem and vancomycin for sepsis. Based on prior consults, I have started her on vancomycin 1g IV q8h. Blood cultures and MRSA screen are pending. I have a trough scheduled for Monday morning. We will continue to monitor and make adjustments as necessary. LEE BARCLAY PHARMACY Dec 01, 2018 15:22
[2018-12-01] MEDS: RIVAROXABAN 20 MG TAB (XARELTO) PO SCH (17:26)
[2018-12-01] MEDS: NORCO, ANEXSIA 5/325MG TABLET (HYDROcodone/ACETAMINOPHEN) PO PRN (17:45)
[2018-12-02] VITALS (11 sets, daily range): BP systolic 106–139; BP diastolic 57–84; O2SAT 96–99
[2018-12-02] MEDS: ACETAMINOPHEN TAB 650MG DOSE (2X325MG) PO PRN ×2 (00:03→17:15)
[2018-12-02] MEDS: NS 1,000 ML IV SCH (00:03)
[2018-12-02] MEDS: VANCOMYCIN HCL 750 MG, VIAL MATE ADAPTER 1 EACH in D5W 250 ML IV SCH ×2 (00:03→06:17)
--- NOTE | 2018-12-02 01:02 | IPNPDOC ---
Subjective Date Seen The patient was seen on 12/02/18. Subjective Chief Complaint/HPI Patient feels a bit better today. Blood pressure has been higher. No bowel movements documented, though this morning she admitted to some loose stool. She was more anemic this a.m., without signs of bleeding; her IV fluids were cut back, and a recheck was ordered. She was not eating well, and complained of headache. Constitutional: Reports: Fatigue; Denies: Chills, Fever ENT: Reports: Head Aches Pulmonary: Denies: Dyspnea, Cough Cardiovascular: Denies: Chest Pain Gastrointestinal: Denies: Nausea, Vomiting, Diarrhea, Constipation Psych: Reports: Mood Normal Objective Physical Examination General Exam: Positive: Alert, No Acute Distress ENT Exam: Positive: Mucous membr. moist/pink Chest Exam: Positive: Clear to auscultation, Normal air movement Heart Exam: Positive: Rate Normal, Normal S1, Normal S2 Abdomen Exam: Positive: Normal bowel sounds, Soft; Negative: Tenderness Extremity Exam: Negative: Edema Neuro Exam: Positive: Normal Speech Psych Exam: Positive: Mood NL Assessment /Plan Problems (1) Anemia Status: Acute Problem Text: Worse today. Follow up labwork after IV fluid rate cut back demonstrates improvement. With no signs of bleeding, will recheck tomorrow. (2) Fever Status: Acute Problem Specific Plan: Monitor Clinically Problem Text: Etiology unclear at this time, Aleman cultures pending 1 prelim GPC clusters. on Vanco/meropenam Tmax 100.7 (3) Pancreatic carcinoma Status: Chronic Response to Treatment: Stable Problem Specific Plan: Monitor Clinically Problem Text: Chemotherapy last 11/20. Mgmt per [facility] Onc (4) Hx of pulmonary embolus Status: Chronic Problem Text: Cont Xarelto Plan/VTE VTE Prophylaxis Ordered?: Yes VS, I&O, 24H, Fishbone Vital Signs/I&O Vital Signs Date Time Temp Pulse Resp B/P (MAP) Pulse Ox O2 Delivery O2 Flow Rate FiO2 12/02/18 00:00 99.8 83 18 132/84 (100) 98 12/02/18 00:00 Room Air I&O- Last 24 Hours up to 6 AM 12/02/18 06:00 Intake Total 2515 ml Output Total 1000 ml Balance 1515 ml Laboratory Data 24H LABS Laboratory Tests 2 12/01/18 05:00: White Blood Count 2.2L, Red Blood Count 2.56L, Hemoglobin 6.7*L, Hematocrit 22.0L, Mean Corpuscular Volume 85.9, Mean Corpuscular Hemoglobin 26.2L, Mean Corpuscular Hemoglobin Concent 30.5L, Red Cell Distribution Width 18.4H, Platelet Count 44#L, Lymphocytes # (Auto) , Nucleated Red Blood Cells % (auto) 0.0, Neutrophils 80H, Band Neutrophils 1, Lymphocytes (Manual) 12L, Monocytes (Manual) 7, Platelet Estimate MARKED DECREASE, Immature Platelet Fraction 7.2, Poikilocytosis 1+, Anisocytosis 2+, Ovalocytes 1+, Anion Gap 8, Glomerular Filtration Rate > 60.0, Blood Urea Nitrogen 8, Creatinine 0.59, Sodium Level 137, Potassium Level 3.2L, Chloride Level 108H, Carbon Dioxide Level 21, Calcium Level 6.8L, Aspartate Amino Transf (AST/SGOT) 32, Alanine Aminotransferase (ALT/SGPT) 28, Alkaline Phosphatase 139H, Total Bilirubin 0.4, Total Protein 5.5L, Albumin 2.3L, Albumin/Globulin Ratio 0.72L 12/01/18 12:12: Bedside Glucose (Misc Panel) 112H 12/01/18 14:02: Vancomycin Level Trough 13.9 12/01/18 17:25: Bedside Glucose (Misc Panel) 129H 12/01/18 20:51: Bedside Glucose (Misc Panel) 137H CBC/BMP Laboratory Tests 12/01/18 05:00 Red Blood Count 2.56 L, Mean Corpuscular Volume 85.9, Mean Corpuscular Hemoglobin 26.2 L, Mean Corpuscular Hemoglobin Concent 30.5 L, Red Cell Distribution Width 18.4 H, Lymphocytes # (Auto) , Calcium Level 6.8 L, Aspartate Amino Transf (AST/SGOT) 32, Alanine Aminotransferase (ALT/SGPT) 28, Alkaline Phosphatase 139 H, Total Bilirubin 0.4, Total Protein 5.5 L, Albumin 2.3 L 12/01/18 14:02 Microbiology Microbiology 11/29/18 Blood Culture - Preliminary, Resulted No Growth after 48 hours. All Specime... 11/29/18 Blood Culture - Preliminary, Resulted 11/29/18 Blood Culture - Preliminary, Resulted 11/30/18 Gastrointestinal Tract Panel (PCR) - Final, Complete 11/29/18 MRSA Screen - Final, Complete LIZZ,TIEN DO Dec 02, 2018 01:02
[2018-12-02] MEDS: MEROPENEM INJ 1 GM in IV 1 EA IV SCH ×2 (01:53→08:57)
[2018-12-02 06:35] LABS: HEMATOCRIT 21.9 % (36.0-47.0); MEAN CORPUSCULAR HEMOGLOBIN 26.4 pg (27.0-33.0); MEAN CORPUSCULAR HGB CONC 30.6 g/dl (32.0-36.5); MEAN CORPUSCULAR VOLUME 86.2 fl (80.0-96.0); RED BLOOD COUNT 2.54 10^6/uL (4.00-5.40)
[2018-12-02 06:39] LABS: HEMOGLOBIN 6.7 g/dl (12.0-15.5); PLATELET COUNT, AUTOMATED 46 10^3/uL (150-450); WHITE BLOOD COUNT 1.7 10^3/uL (4.0-10.0)
[2018-12-02 07:02] LABS: ALBUMIN 2.4 GM/DL (3.2-5.2); ALT/SGPT 25 U/L (12-78); BILIRUBIN,TOTAL 0.4 MG/DL (0.2-1.0); BLOOD UREA NITROGEN 7 MG/DL (7-18); CALCIUM LEVEL 7.1 MG/DL (8.5-10.1); CARBON DIOXIDE LEVEL 23 MEQ/L (21-32); CHLORIDE LEVEL 113 MEQ/L (98-107); CREATININE FOR GFR 0.53 MG/DL (0.55-1.30); GLOMERULAR FILTRATION RATE > 60.0 (>51); GLUCOSE, FASTING 103 MG/DL (70-100); POTASSIUM SERUM 3.8 MEQ/L (3.5-5.1); SODIUM LEVEL 142 MEQ/L (136-145); TOTAL PROTEIN 5.1 GM/DL (6.4-8.2)
[2018-12-02] MEDS: DOCUSATE SODIUM 100 MG CAP PO SCH ×2 (08:47→08:49)
[2018-12-02] MEDS: LACTOBACILLUS ACIDOPHILUS CAP (BACID) PO SCH (08:47)
[2018-12-02] MEDS: cefTRIAXone SOD 1 GM in D5W MINI-BAG PLUS 50 ML IV SCH (10:55)
[2018-12-02] MEDS ORDERED: DOCUSATE SODIUM 100 MG CAP PO PRN (11:45)
[2018-12-02] MEDS: RIVAROXABAN 20 MG TAB (XARELTO) PO SCH (17:15)
[2018-12-02 18:30] LABS: HEMATOCRIT 28.7 % (36.0-47.0)
[2018-12-02 18:36] LABS: HEMOGLOBIN 9.1 g/dl (12.0-15.5)
[2018-12-02] MEDS: NORCO, ANEXSIA 5/325MG TABLET (HYDROcodone/ACETAMINOPHEN) PO PRN (19:50)
[2018-12-02] MEDS: LOPERAMIDE 2 MG CAPLET PO PRN ×2 (20:16→21:44)
[2018-12-02] MEDS ORDERED: MAALOX 30 ML SUSP *UDC PO PRN (20:45)
[2018-12-02] MEDS ORDERED: CALCIUM CARBONATE 500 MG CHEW U/D PO PRN (20:45)
--- NOTE | 2018-12-02 21:26 | IPNPDOC ---
Subjective Date Seen The patient was seen on 12/02/18. Subjective Chief Complaint/HPI Patient's hemoglobin is lower today, and she notes some ongoing dyspnea and fatigue. She has never had a blood transfusion. States overall she is feeling better. She continues to have diarrhea today, and states that she had diarrhea yesterday as well. It is chronic, unchanging, and she states a side effect from her chemo. She has had it chronically since starting chemo, and that when her next chemotherapy treatments have been postponed, it has resolved-- until she restarts chemo. Constitutional: Denies: Chills, Fever, Malaise Pulmonary: Denies: Dyspnea, Cough Cardiovascular: Denies: Chest Pain, Palpitations Gastrointestinal: Reports: Diarrhea; Denies: Nausea, Vomiting, Abdominal Pain Genitourinary: Denies: Dysuria Hematologic: Denies: Bruising, Bleeding Excessively Objective Physical Examination General Exam: Positive: Alert, No Acute Distress ENT Exam: Positive: Mucous membr. moist/pink Chest Exam: Positive: Clear to auscultation, Normal air movement Heart Exam: Positive: Rate Normal, Normal S1, Normal S2 Abdomen Exam: Positive: Normal bowel sounds, Soft; Negative: Tenderness Extremity Exam: Negative: Edema Neuro Exam: Positive: Normal Speech Psych Exam: Positive: Mood NL Assessment /Plan Problems (1) Anemia Status: Acute Problem Text: 12/02 -- Patient consented to a blood transfusion, and received 2 units PRBCs. Worse today. Follow up labwork after IV fluid rate cut back demonstrates improvement. With no signs of bleeding, will recheck tomorrow. (2) Fever Status: Acute Problem Specific Plan: Monitor Clinically Problem Text: 12/02 -- blood cultures grew Strep oralis. Afebrile. Changed antibiotics to ceftriaxone. Etiology unclear at this time, Aleman cultures pending 1 prelim GPC clusters. on Vanco/meropenam Tmax 100.7 (3) Pancreatic carcinoma Status: Chronic Response to Treatment: Stable Problem Specific Plan: Monitor Clinically Problem Text: Chemotherapy last 11/20. Mgmt per [facility] Onc (4) Hx of pulmonary embolus Status: Chronic Problem Text: Cont Xarelto Plan/VTE VTE Prophylaxis Ordered?: Yes VS, I&O, 24H, Fishbone Vital Signs/I&O Vital Signs Date Time Temp Pulse Resp B/P (MAP) Pulse Ox O2 Delivery O2 Flow Rate FiO2 12/02/18 20:00 97.3 77 18 139/77 (97) 97 12/02/18 11:00 Room Air I&O- Last 24 Hours up to 6 AM 12/02/18 06:00 Intake Total 3390 ml Output Total 1400 ml Balance 1990 ml Laboratory Data 24H LABS Laboratory Tests 2 12/02/18 06:16: Nucleated Red Blood Cells % (auto) 0.0, Immature Platelet Fraction 6.6, Anion Gap 6L, Glomerular Filtration Rate > 60.0, Blood Urea Nitrogen 7, Creatinine 0 .53L, Sodium Level 142, Potassium Level 3.8, Chloride Level 113H, Carbon Dioxide Level 23, Calcium Level 7.1L, Aspartate Amino Transf (AST/SGOT) 27, Alanine Aminotransferase (ALT/SGPT) 25, Alkaline Phosphatase 125H, Total Bilirubin 0.4, Total Protein 5.1L, Albumin 2.4L, Albumin/Globulin Ratio 0.89L 12/02/18 12:17: Bedside Glucose (Misc Panel) 126H 12/02/18 16:36: Bedside Glucose (Misc Panel) 119H CBC/BMP Laboratory Tests 12/02/18 06:16 Red Blood Count 2.54 L, Mean Corpuscular Volume 86.2, Mean Corpuscular Hemoglobin 26.4 L, Mean Corpuscular Hemoglobin Concent 30.6 L, Red Cell Distribution Width 18.1 H, Calcium Level 7.1 L, Aspartate Amino Transf (AST/SGOT) 27, Alanine Aminotransferase (ALT/SGPT) 25, Alkaline Phosphatase 125 H, Total Bilirubin 0.4, Total Protein 5.1 L, Albumin 2.4 L 12/02/18 18:24 Microbiology Microbiology 11/29/18 Blood Culture - Preliminary, Resulted No Growth after 48 hours. All Specime... 11/29/18 Blood Culture - Preliminary, Resulted Streptococcus Oralis 11/29/18 Blood Culture - Preliminary, Resulted 12/02/18 Stool Occult Blood (ALBINO) - Final, Complete 11/30/18 Gastrointestinal Tract Panel (PCR) - Final, Complete 11/29/18 MRSA Screen - Final, Complete TIEN ZAMUDIO DO Dec 02, 2018 21:26
[2018-12-03] VITALS: BP 119/58
[2018-12-03] MEDS: ONDANSETRON 4MG/2ML VIAL (J2405) IV PRN ×2 (01:49→11:33)
[2018-12-03 04:00] VITALS: BP 126/75
[2018-12-03] MEDS: LOPERAMIDE 2 MG CAPLET PO PRN ×2 (05:17→10:40)
[2018-12-03 05:30] LABS: HEMATOCRIT 29.2 % (36.0-47.0); MEAN CORPUSCULAR HEMOGLOBIN 26.3 pg (27.0-33.0); MEAN CORPUSCULAR HGB CONC 30.8 g/dl (32.0-36.5); MEAN CORPUSCULAR VOLUME 85.4 fl (80.0-96.0); RED BLOOD COUNT 3.42 10^6/uL (4.00-5.40); WHITE BLOOD COUNT 3.1 10^3/uL (4.0-10.0)
[2018-12-03 05:31] LABS: PLATELET COUNT, AUTOMATED 56 10^3/uL (150-450)
[2018-12-03 06:12] LABS: ALBUMIN 2.6 GM/DL (3.2-5.2); ALT/SGPT 25 U/L (12-78); BILIRUBIN,TOTAL 0.5 MG/DL (0.2-1.0); BLOOD UREA NITROGEN 5 MG/DL (7-18); CARBON DIOXIDE LEVEL 25 MEQ/L (21-32); CHLORIDE LEVEL 114 MEQ/L (98-107); CREATININE FOR GFR 0.56 MG/DL (0.55-1.30); GLOMERULAR FILTRATION RATE > 60.0 (>51); GLUCOSE, FASTING 92 MG/DL (70-100); POTASSIUM SERUM 3.3 MEQ/L (3.5-5.1); SODIUM LEVEL 144 MEQ/L (136-145); TOTAL PROTEIN 5.4 GM/DL (6.4-8.2)
[2018-12-03 08:00] VITALS: BP 101/51
[2018-12-03] MEDS ORDERED: POTASSIUM CHLORIDE 10 MEQ SR TABLET PO ONE (08:00)
[2018-12-03] MEDS: LACTOBACILLUS ACIDOPHILUS CAP (BACID) PO SCH (08:18)
[2018-12-03] MEDS: OMEPRAZOLE 20 MG CAP PO SCH (08:18)
--- NOTE | 2018-12-03 09:06 | IPNPDOC ---
Subjective Date Seen The patient was seen on 12/03/18. Subjective Chief Complaint/HPI Pt this morning without new concerns. She states that her chronic diarrhea has remained the same. She had some nausea last night with a small amount of vomit. She denies abd pain. She does not have much of an appetite. General: Reports: Fatigue; Denies: Night Sweats Constitutional: Denies: Chills, Fever Pulmonary: Denies: Dyspnea, Cough Cardiovascular: Denies: Chest Pain, Palpitations Gastrointestinal: Reports: Nausea, Vomiting, Diarrhea; Denies: Abdominal Pain Neurological: Denies: Weakness Psych: Reports: Mood Normal Objective Physical Examination General Exam: Positive: Alert, No Acute Distress ENT Exam: Positive: Mucous membr. moist/pink, Other ENT (no gingival inflammation. there are 2 caries but no inflammation visible.) Chest Exam: Positive: Clear to auscultation, Normal air movement Heart Exam: Positive: Rate Normal, Normal S1, Normal S2 Abdomen Exam: Positive: Normal bowel sounds, Soft; Negative: Tenderness Extremity Exam: Negative: Edema Neuro Exam: Positive: Normal Speech Psych Exam: Positive: Mood NL Assessment /Plan Problems (1) Anemia Status: Acute Problem Text: 12/03 Hgb 9.1 last night after 2 units, 9.0 this morning, monitor. Neg OB 12/02 -- Patient consented to a blood transfusion, and received 2 units PRBCs. Worse today. Follow up labwork after IV fluid rate cut back demonstrates improvement. With no signs of bleeding, will recheck tomorrow. (2) Fever Status: Acute Problem Specific Plan: Monitor Clinically Problem Text: 12/03: Four different microbes identified, all likely oral/gi origin. Has defervesced and WBC normalized on Rocephin. Will request an opinion from Dr. Jacky Bocanegra regarding these organisms and recommendation for management. Will request Echo. 12/03 Await final culture results. Afebrile for more than 24 hours. Abx D5 12/02 -- blood cultures grew Strep oralis. Afebrile. Changed antibiotics to ceftriaxone. Etiology unclear at this time, Aleman cultures pending 1 prelim GPC clusters. on Vanco/meropenam Tmax 100.7 (3) Pancreatic carcinoma Status: Chronic Response to Treatment: Stable Problem Specific Plan: Monitor Clinically Problem Text: Chemotherapy last 11/20. Mgmt per [facility] Onc (4) Hx of pulmonary embolus Status: Chronic Problem Text: Cont Xarelto Plan/VTE VTE Prophylaxis Ordered?: Yes VS, I&O, 24H, Fishbone Vital Signs/I&O Vital Signs Date Time Temp Pulse Resp B/P (MAP) Pulse Ox O2 Delivery O2 Flow Rate FiO2 12/03/18 08:00 97.4 72 18 101/51 (68) 96 12/02/18 11:00 Room Air I&O- Last 24 Hours up to 6 AM 12/03/18 06:00 Intake Total 930 ml Output Total 1500 ml Balance -570 ml Laboratory Data 24H LABS Laboratory Tests 2 12/02/18 12:17: Bedside Glucose (Misc Panel) 126H 12/02/18 16:36: Bedside Glucose (Misc Panel) 119H 12/02/18 21:07: Bedside Glucose (Misc Panel) 105 12/03/18 05:10: Nucleated Red Blood Cells % (auto) 0.0, Anion Gap 5L, Glomerular Filtration Rate > 60.0, Blood Urea Nitrogen 5L, Creatinine 0.56, Sodium Level 144, Potassium Level 3.3L, Chloride Level 114H, Carbon Dioxide Level 25, Calcium Level 8.0L, Aspartate Amino Transf (AST/SGOT) 29, Alanine Aminotransferase (ALT/SGPT) 25, Alkaline Phosphatase 122H, Total Bilirubin 0.5, Total Protein 5.4L, Albumin 2.6L, Albumin/Globulin Ratio 0.93L CBC/BMP Laboratory Tests 12/02/18 18:24 12/03/18 05:10 Red Blood Count 3.42 L, Mean Corpuscular Volume 85.4, Mean Corpuscular Hemoglobin 26.3 L, Mean Corpuscular Hemoglobin Concent 30.8 L, Red Cell Distribution Width 17.2 H, Calcium Level 8.0 L, Aspartate Amino Transf (AST/SGOT) 29, Alanine Aminotransferase (ALT/SGPT) 25, Alkaline Phosphatase 122 H, Total Bilirubin 0.5, Total Protein 5.4 L, Albumin 2.6 L Microbiology Microbiology 11/29/18 Blood Culture - Preliminary, Resulted No Growth after 72 hours. All specime... 11/29/18 Blood Culture - Preliminary, Resulted Streptococcus Oralis 11/29/18 Blood Culture - Preliminary, Resulted 12/02/18 Stool Occult Blood (ALBINO) - Final, Complete 11/30/18 Gastrointestinal Tract Panel (PCR) - Final, Complete 11/29/18 MRSA Screen - Final, Complete TAMIR SINGLETON PA-C Dec 03, 2018 09:05 Leoncio Baptiste MD Dec 03, 2018 10:27
[2018-12-03] MEDS: cefTRIAXone SOD 1 GM in D5W MINI-BAG PLUS 50 ML IV SCH (10:40)
[2018-12-03] MEDS: ACETAMINOPHEN TAB 650MG DOSE (2X325MG) PO PRN (11:34)
[2018-12-03 16:00] VITALS: BP 97/56
[2018-12-03] MEDS ORDERED: ISOVUE-370 76% 100ML VIAL (Q9967) As Ordered ONE (16:23)
[2018-12-03] MEDS ORDERED: SLF 3 ML SYR IV PRN (17:45)
[2018-12-03] MEDS: RIVAROXABAN 20 MG TAB (XARELTO) PO SCH (18:36)
--- NOTE | 2018-12-03 18:36 | REPVR ---
EXAM: CT Abdomen and Pelvis With Contrast EXAM DATE/TIME: 12/03/2018 5:15 PM CLINICAL HISTORY: 58 years old, female; Abdominal pain; Generalized; Additional info: Evaluate for abscess, cx positive for gi organisms TECHNIQUE: Imaging protocol: Axial computed tomography images of the abdomen and pelvis with intravenous contrast. Coronal and sagittal reformatted images were created and reviewed. Radiation optimization: All CT scans at this facility use at least one of these dose optimization techniques: automated exposure control; mA and/or kV adjustment per patient size (includes targeted exams where dose is matched to clinical indication); or iterative reconstruction. Contrast material: ISOVUE 370; Contrast volume: 100 ml; Contrast route: IV; COMPARISON: CT ABD PELVIS W/O FOL BY WIT 08/23/2018 3:58 PM FINDINGS: Lungs: There is bibasilar compressive atelectasis. Pleural space: Pleural thickening right lung base. Small left pleural effusion. Heart: Small pericardial effusion. Liver: There is a diffuse decrease in hepatic parenchymal density, consistent with fatty infiltration. Examination of the liver demonstrates a lobular surface contour, findings which may indicate hepatocellular disease including cirrhosis. Gallbladder and bile ducts: There has been a cholecystectomy. Pancreas: There is diffuse pancreatic atrophy. Dilated pancreatic duct measures up to 6 mm. Inflammatory changes surround an enlarged pancreatic head uncinate process, findings which may indicate pancreatitis. Clinical correlation needed. Spleen: There is moderate splenomegaly with a maximum span of 16 centimeters. Focal bandlike low attenuation foci in the anterior and posterior aspect of the spleen not demonstrated previously. Findings may be secondary to interval splenic infarcts. Splenic trauma to be excluded clinically. No other focal abnormalities demonstrated. Adrenals: Normal. No mass. Kidneys and ureters: Multiple bilateral non obstructing renal calculi are demonstrated measuring up to 2-3 mm. Stomach and bowel: Inflammatory changes adjacent to the duodenal sweep may be reactive although duodenitis not excluded. Moderate diverticulosis is present in the distal colon. No diverticulitis. Appendix: No evidence of appendicitis. Intraperitoneal space: There is a small amount of free intraperitoneal fluid present. 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 Recanalized paraumbilical veins. Esophageal and gastric varices. Splenorenal portosystemic collaterals. Lymph nodes: Normal. No enlarged lymph nodes. Bladder: Unremarkable as visualized. Reproductive: There has been a hysterectomy. Bones/joints: Moderate to severe central spinal stenosis at L4-5 and mild central spinal stenosis at L5-S1. Soft tissues: Left inguinal hernia. IMPRESSION: 1. There is a diffuse decrease in hepatic parenchymal density, consistent with fatty infiltration. 2. Examination of the liver demonstrates a lobular surface contour, findings which may indicate hepatocellular disease including cirrhosis. Numerous portosystemic collaterals. 3. There has been a cholecystectomy. 4. There is a small amount of free intraperitoneal fluid present. 5. There is moderate splenomegaly. with a maximum span of 16 centimeters. Focal bandlike low attenuation foci in the spleen not demonstrated previously. Findings may be secondary to interval splenic infarcts. Splenic trauma to be excluded clinically. 6. There is diffuse pancreatic atrophy. Dilated pancreatic duct measures up to 6 mm. Inflammatory changes surround an enlarged pancreatic head uncinate process, findings which may indicate pancreatitis. Clinical correlation needed. 7. Inflammatory changes adjacent to the duodenal sweep may be reactive although duodenitis not excluded. 8. Moderate diverticulosis is present in the distal colon. No diverticulitis. 9. There has been a hysterectomy. Electronically signed by: Michael Renee On 12/03/2018 18:36:16 PM
--- NOTE | 2018-12-03 19:25 | ECHO ---
DATE OF PROCEDURE: 12/03/2018 REFERRING PHYSICIAN: Dr. Ag Bravo INDICATION: Sepsis and fever. Height 155 cm, weight 103 kg. DIMENSIONS: IVS: 1.0 LV: 4.5 LVPW: 1.0 LA: 3.4 Aorta: 2.7 Mitral E wave velocity: 96 A wave: 99 E prime septal: 7.7 E prime lateral: 9.6 FINDINGS: The study is of fair technical quality corresponding to patient's body habitus. The patient is in sinus rhythm. Left ventricle is of normal size and overall normal systolic function. I estimate left ventricular ejection fraction (LVEF) approximately 60-65%. No segmental wall motion abnormalities are appreciated. Right ventricle also appears grossly normal. Both atria appear normal. Aortic valve appears sclerotic; it was poorly visualized. Based on apical views, there is a possibility of vegetation of the valve even though nothing convincing is seen. Mitral valve appears normal. Tricuspid valve also appears normal. Pulmonic valve was poorly visualized but grossly appears normal. No pericardial effusion is noted. Inferior vena cava was not visualized. Aortic root and aortic arch appear normal. Abdominal aorta was not well seen. Doppler interrogation of aortic valve reveals trivial stenosis with mean gradient 7 mmHg and moderate insufficiency with pressure half-time of AI jet 310 milliseconds. There is mild to moderate tricuspid insufficiency. Calculated pulmonary artery pressure is in 30s assuming normal central venous pressure corresponding to mild pulmonary hypertension. Pulmonic valve exhibits trace insufficiency. Mitral inflow pattern and tissue Doppler imaging of mitral annulus revealed grade 1 diastolic dysfunction. CONCLUSIONS: 1. Study is of acceptable technical quality. 2. Normal left ventricular (LV) size with preserved LV systolic function and grade 1 diastolic dysfunction. 3. Aortic valve appears mildly sclerotic, there is trivial aortic stenosis and likely moderate aortic insufficiency. 4. Mild mitral insufficiency. 5. Mild tricuspid insufficiency. 6. Unable to estimate central venous pressure but likely mild pulmonary hypertension. 7. Compared to echocardiogram from October 11, 2018, the severity of aortic insufficiency has increased dramatically. COMMENT: In appropriate clinical setting, fairly rapid worsening of aortic insufficiency certainly raises possibility of infectious endocarditis. If there is a high clinical suspicion, then transesophageal echocardiogram will certainly provide much better resolution and diagnostic accuracy.
[2018-12-03 20:00] VITALS: BP 122/81
[2018-12-03] MEDS: SLF 3 ML SYR IV SCH (22:00)
--- NOTE | 2018-12-03 22:51 | CR.PDOC ---
General Date of Consultation: Dec 03, 2018 Consultation HISTORY OF PRESENT ILLNESS: Jalyn is a 58 yo female admitted to [facility] 11.29.2018 for fevers and some intermittent associated confusion. She has a history of stage IV pancreatic adenocarcinoma, last chemo tx was in October 2018. During the course of this hospital stay, blood cultures have been drawn and were positive for streptococcus oralis, neisseria cinerea, streptococcus pseudoporcinus and granulicatelia adiacens on November 29 2018. Since then she has had repeat blood cx again on 11.29.2018 that was negative. She has also had negative GI panel for some loose intermittent stool. Her last documented febrile episode in the hospital was 11.30.2018 with a temp of 100.7 F, she has been afebrile since then. On examination, she is in good spirits, she really offers no complaints, perhaps some fatigue and at times she feels her abdomen is distended, particularly after she eats. She states her pancreatic cancer was first diagnosed when she noted some chest pain and went to the ED for further evaluation, she has had no weight loss, no n/v or abdominal discomfort since diagnosis. She denied chest pain, palpitations, headache, chills, fevers, SOB or cough. She follows with [facility] oncology for her chemotherapy. ALLERGIES: Please see below. HOME MEDICATIONS: Please see below. 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 REVIEW OF SYSTEMS: 12 point ROS was reviewed with pt and negative except for pertinent positives in HPI PHYSICAL EXAMINATION: VITAL SIGNS: Please see below. GENERAL APPEARANCE: Pleasant 58 yo female, resting in bed, NAD HEENT: NCAT, neck supple, no JVD, EOMI RESPIRATORY: cta b/l, no wheezing, rales or rhonchi CARDIOVASCULAR: normal s1 and s2, no murmurs rubs or gallops ABDOMEN: soft, somewhat distended appearing, nabsx4, no rebound ridgity or guarding, no hepatosplenomegaly or masses appreciated EXTREMITIES: no edema, cyanosis or mottling NEUROLOGICAL: no focal deficits LABORATORY DATA: Please see below. PLAN: Impression :Polymicrobial bacteremia with 3 days febrile episodes with associated positive blood cultures peripherally in apatient with metastatic pancreatic carcinoma on FOLFOX chemotherapy. There was no culture taken of her chemo port on this admission, we will perform that today, she has since had one negative blood cx after two prior positives discussed above. The bacteria growing are largely of oral/GI source, there hasn't been any abdominal imaging done for her yet, we will do this today to evaluate for potential abscess especially in light of her complaints and physical exam of a somewhat distended abdomen. For now she can continue on ceftriaxone, it has been several days since her last fever. If she does have an intra-abdominal abscess it may need CT guided drainage. PLAN: CT abdomen pelvis with contrast today if abscess needs Ct guided drainage Port blood culture Continue current IV antibiotics Echocardiogram to RO endocarditis will be ruled out Vital Signs/I&O Vital Signs Date Time Temp Pulse Resp B/P (MAP) Pulse Ox O2 Delivery O2 Flow Rate FiO2 12/03/18 20:00 96.9 80 18 122/81 (95) 98 12/02/18 11:00 Room Air I&O- Last 24 Hours up to 6 AM 12/03/18 06:00 Intake Total 930 ml Output Total 1500 ml Balance -570 ml Laboratory Data Labs 24H Laboratory Tests 2 12/03/18 05:10: Nucleated Red Blood Cells % (auto) 0.0, Anion Gap 5L, Glomerular Filtration Rate > 60.0, Blood Urea Nitrogen 5L, Creatinine 0.56, Sodium Level 144, Potassium Level 3.3L, Chloride Level 114H, Carbon Dioxide Level 25, Calcium Level 8.0L, Aspartate Amino Transf (AST/SGOT) 29, Alanine Aminotransferase (ALT/SGPT) 25, Alkaline Phosphatase 122H, Total Bilirubin 0.5, Total Protein 5.4L, Albumin 2.6L, Albumin/Globulin Ratio 0.93L 12/03/18 12:05: Bedside Glucose (Misc Panel) 114H 12/03/18 18:37: Bedside Glucose (Misc Panel) 110H 12/03/18 21:17: Bedside Glucose (Misc Panel) 106H CBC/BMP Laboratory Tests 12/03/18 05:10 Red Blood Count 3.42 L, Mean Corpuscular Volume 85.4, Mean Corpuscular He moglobin 26.3 L, Mean Corpuscular Hemoglobin Concent 30.8 L, Red Cell Distribution Width 17.2 H, Calcium Level 8.0 L, Aspartate Amino Transf (AST/SGOT) 29, Alanine Aminotransferase (ALT/SGPT) 25, Alkaline Phosphatase 122 H, Total Bilirubin 0.5, Total Protein 5.4 L, Albumin 2.6 L Microbiology Microbiology 12/03/18 Blood Culture, Received Pending 11/29/18 Blood Culture - Preliminary, Resulted No Growth after 72 hours. All specime... 11/29/18 Blood Culture - Final, Complete Streptococcus Oralis Neisseria Cinerea 11/29/18 Blood Culture - Final, Complete Streptococcus Pseudoporcinus Granulicatella Adiacens 12/02/18 Stool Occult Blood (ALBINO) - Final, Complete 11/30/18 Gastrointestinal Tract Panel (PCR) - Final, Complete 11/29/18 MRSA Screen - Final, Complete Allergies Coded Allergies: No Known Allergies (Unverified , 08/22/18) Home Medications Scheduled Aspirin (Aspir 81) 81 Mg Tablet.dr, 81 MG PO QHS, (Reported) Atropine Sulfate (Atropine Sulfate) 0.05 Mg/1 Ml Syringe, 0.25 MG IVP Q2WK, (Reported) Dexamethasone (Dexamethasone 10 mg/ml Vial) 10 Mg/1 Ml Vial, 12 MG IV Q2WK, (Reported) Ferrous Sulfate (Ferrous Sulfate) 325 Mg Tablet, 325 MG PO QHS, (Reported) Fluorouracil (Fluorouracil) 1 Gm/20 Ml Vial, 4,600 MG IV Q2WK, (Reported) OVER 46 HOURS Fosaprepitant (Emend) 150 Mg Vial, 150 MG IV Q2WK, (Reported) Irinotecan HCl (Irinotecan HCl) 100 Mg/5 Ml Vial, 345 MG IV Q2WK, (Reported) Leucovorin Calcium (Leucovorin Calcium) 10 Mg/1 Ml Vial, 766 MG IV Q2WK, (Repor heather) Olanzapine (Olanzapine) 10 Mg Tablet, 10 MG PO Q2WK, (Reported) Oxaliplatin (Oxaliplatin) 50 Mg Vial, 153 MG IV Q2WK, (Reported) Palonosetron HCl (Palonosetron HCl) 0.25 Mg/5 Ml Vial, 0.25 MG IV Q2WK, (Reported) Pegfilgastrim (Neulasta) 6 Mg/0.6 Ml Syringe, 6 MG SC ASDIRECTED, (Reported) APPLY ON DAY 3 OF CHEMO TREATMENT Potassium Chloride (Potassium Chloride) 20 Meq Tablet.er, 20 MEQ PO DAILY, (Reported) Rivaroxaban (Xarelto) 20 Mg Tab, 20 MG PO QHS, (Reported) Scheduled PRN Hydrocodone/Acetaminophen ([place] 5-325 Tablet) 1 Tab Tab, 1 TAB PO Q8H PRN for PAIN, (Reported) Lorazepam (Ativan) 2 Mg/1 Ml Vial, 1 MG IVP for ANXIETY, (Reported) Ondansetron HCl (Zofran) 8 Mg Tab, 8 MG PO BID PRN for NAUSEA, (Reported) Prochlorperazine Maleate (Prochlorperazine Maleate) 10 Mg Tab, 10 MG PO Q6H PRN for NAUSEA, (Reported) Zolpidem Tartrate (Zolpidem Tartrate) 5 Mg Tablet, 5 MG PO QHS PRN for INSOMNIA, (Reported) GME ATTESTATION GME ATTESTATION My faculty preceptor for this patient encounter was physically present during the encounter and was fully available. All aspects of the patient interview, examination, medical decision making process, and medical care plan development were reviewed and approved by the faculty preceptor. The faculty preceptor is aware and concurs with the plan as stated in the body of this note and will attest to such by his/her cosignature. BRITTNEY WALKER DO Dec 03, 2018 22:51 Leana Bocanegra MD Dec 05, 2018 22:27
[2018-12-04] VITALS (7 sets, daily range): BP systolic 102–126; BP diastolic 50–74
[2018-12-04] MEDS: ACETAMINOPHEN TAB 650MG DOSE (2X325MG) PO PRN (03:58)
[2018-12-04] MEDS: SLF 3 ML SYR IV SCH ×3 (04:52→17:41)
[2018-12-04 05:50] LABS: HEMOGLOBIN 8.6 g/dl (12.0-15.5); MEAN CORPUSCULAR HEMOGLOBIN 26.3 pg (27.0-33.0); MEAN CORPUSCULAR HGB CONC 30.7 g/dl (32.0-36.5); MEAN CORPUSCULAR VOLUME 85.6 fl (80.0-96.0); RED BLOOD COUNT 3.27 10^6/uL (4.00-5.40); WHITE BLOOD COUNT 3.5 10^3/uL (4.0-10.0)
[2018-12-04 05:51] LABS: PLATELET COUNT, AUTOMATED 73 10^3/uL (150-450)
[2018-12-04 06:40] LABS: ALBUMIN 2.5 GM/DL (3.2-5.2); ALT/SGPT 31 U/L (12-78); BILIRUBIN,TOTAL 0.4 MG/DL (0.2-1.0); BLOOD UREA NITROGEN 7 MG/DL (7-18); CALCIUM LEVEL 7.7 MG/DL (8.5-10.1); CARBON DIOXIDE LEVEL 23 MEQ/L (21-32); CHLORIDE LEVEL 118 MEQ/L (98-107); GLOMERULAR FILTRATION RATE > 60.0 (>51); GLUCOSE, FASTING 95 MG/DL (70-100); POTASSIUM SERUM 3.8 MEQ/L (3.5-5.1); SODIUM LEVEL 139 MEQ/L (136-145); TOTAL PROTEIN 5.2 GM/DL (6.4-8.2)
[2018-12-04 08:25] LABS: C REACTIVE PROTEIN QUANTITATIV 1.85 MG/DL (0.00-0.30)
[2018-12-04] MEDS: LACTOBACILLUS ACIDOPHILUS CAP (BACID) PO SCH (08:40)
[2018-12-04] MEDS: OMEPRAZOLE 20 MG CAP PO SCH (08:40)
[2018-12-04] MEDS: POTASSIUM CHLORIDE 10 MEQ SR TABLET PO SCH (08:41)
[2018-12-04] MEDS: cefTRIAXone SOD 1 GM in D5W MINI-BAG PLUS 50 ML IV SCH (10:24)
--- NOTE | 2018-12-04 11:07 | IPNPDOC ---
Subjective Date Seen The patient was seen on 12/04/18. Subjective Chief Complaint/HPI no new complaints overnight. no fevers, no headache, no chills, no dyspnea ENT: Denies: Head Aches Pulmonary: Denies: Dyspnea, Cough Cardiovascular: Denies: Chest Pain, Palpitations, Orthopnea Gastrointestinal: Denies: Nausea, Abdominal Pain Neurological: Denies: Weakness, Numbness Psych: Reports: Mood Normal Objective Physical Examination General Exam: Positive: Alert, No Acute Distress ENT Exam: Positive: Mucous membr. moist/pink, Other ENT (no gingival inflammation. there are 2 caries but no inflammation visible.) Chest Exam: Positive: Clear to auscultation, Normal air movement Heart Exam: Positive: Rate Normal, Normal S1, Normal S2 Abdomen Exam: Positive: Normal bowel sounds, Soft; Negative: Tenderness Extremity Exam: Negative: Edema Neuro Exam: Positive: Normal Speech Psych Exam: Positive: Mood NL Assessment /Plan Problems (1) Fever Status: Acute Problem Specific Plan: Monitor Clinically Problem Text: 12/04: Echo shows worsening aortic regurg and possible vegetations, CT shows findings c/w splenic infarcts, very suspicious for bacterial endocarditis. Remains afebrile on ceftriaxone. TE is an option for confirmation but there may be enough evidence now to support dx. S pseudoporcinus has been associated with bacterial endocarditis. Will also request cardiology opinion. 12/03: Four different microbes identified, all likely oral/gi origin. Has defervesced and WBC normalized on Rocephin. Will request an opinion from Dr. Jacky Bocanegra regarding these organisms and recommendation for management. Will request Echo. 12/03 Await final culture results. Afebrile for more than 24 hours. Abx D5 12/02 -- blood cultures grew Strep oralis. Afebrile. Changed antibiotics to ceftriaxone. Etiology unclear at this time, Aleman cultures pending 1 prelim GPC clusters. on Vanco/meropenam Tmax 100.7 (2) Anemia Status: Acute Problem Text: 12/04 Hgb 8.6, continue to monitor 12/03 Hgb 9.1 last night after 2 units, 9.0 this morning, monitor. Neg OB 12/02 -- Patient consented to a blood transfusion, and received 2 units PRBCs. Worse today. Follow up labwork after IV fluid rate cut back demonstrates improvement. With no signs of bleeding, will recheck tomorrow. (3) Pancreatic carcinoma Status: Chronic Response to Treatment: Stable Problem Specific Plan: Monitor Clinically Problem Text: Chemotherapy last 11/20. Mgmt per [facility] Onc (4) Hx of pulmonary embolus Status: Chronic Problem Text: Cont Xarelto Plan/VTE VTE Prophylaxis Ordered?: Yes VS, I&O, 24H, Fishbone Vital Signs/I&O Vital Signs Date Time Temp Pulse Resp B/P (MAP) Pulse Ox O2 Delivery O2 Flow Rate FiO2 12/04/18 08:00 98.0 66 18 104/50 (68) 99 12/02/18 11:00 Room Air I&O- Last 24 Hours up to 6 AM 12/04/18 06:00 Intake Total 1340 ml Output Total 700 ml Balance 640 ml Laboratory Data 24H LABS Laboratory Tests 2 12/03/18 12:05: Bedside Glucose (Misc Panel) 114H 12/03/18 18:37: Bedside Glucose (Misc Panel) 110H 12/03/18 21:17: Bedside Glucose (Misc Panel) 106H 12/04/18 05:33: Nucleated Red Blood Cells % (auto) 0.0, Immature Platelet Fraction 6.7, Anion Gap -2L, Glomerular Filtration Rate > 60.0, Blood Urea Nitrogen 7, Creatinine 0.60, Sodium Level 139, Potassium Level 3.8, Chloride Level 118H, Carbon Dioxide Level 23, Calcium Level 7.7L, Aspartate Amino Transf (AST/SGOT) 71H, Alanine Aminotransferase (ALT/SGPT) 31, Alkaline Phosphatase 154H, Total Bilirubin 0.4, Total Protein 5.2L, Albumin 2.5L, C-Reactive Protein, Quantitative 1.85H, Albumin/Globulin Ratio 0.93L CBC/BMP Laboratory Tests 12/04/18 05:33 Red Blood Count 3.27 L, Mean Corpuscular Volume 85.6, Mean Corpuscular Hemoglobi n 26.3 L, Mean Corpuscular Hemoglobin Concent 30.7 L, Red Cell Distribution Width 17.8 H, Calcium Level 7.7 L, Aspartate Amino Transf (AST/SGOT) 71 H, Alanine Aminotransferase (ALT/SGPT) 31, Alkaline Phosphatase 154 H, Total Bilirubin 0.4, Total Protein 5.2 L, Albumin 2.5 L Microbiology Microbiology 12/03/18 Blood Culture, Received Pending 11/29/18 Blood Culture - Preliminary, Resulted No Growth after 72 hours. All specime... 11/29/18 Blood Culture - Final, Complete Streptococcus Oralis Neisseria Cinerea 11/29/18 Blood Culture - Final, Complete Streptococcus Pseudoporcinus Granulicatella Adiacens 12/02/18 Stool Occult Blood (ALBINO) - Final, Complete 11/30/18 Gastrointestinal Tract Panel (PCR) - Final, Complete 11/29/18 MRSA Screen - Final, Complete Leoncio Baptiste MD Dec 04, 2018 11:07
--- NOTE | 2018-12-04 15:57 | CR ---
DATE OF CONSULTATION: 12/04/2018 CARDIOLOGY CONSULTATION REASON FOR CONSULTATION: Consideration of transesophageal echocardiogram. HISTORY OF PRESENT ILLNESS: Patient is a 58 year old female who presented to the [facility] emergency department on 11/29/18 complaining of fevers and mild confusion. She has a history of stage IV pancreatic adenocarcinoma with metastases to the liver and chemotherapy induced neutropenia. Two blood cultures were drawn that revealed four different bacteria and she was started on antibiotics. A repeat culture drawn hours later was negative and showed no growth. The patient subsequently improved on antibiotic therapy over the coming days and experienced no further febrile episodes; The primary team requested consultation from infectious disease to ascertain the etiology of the two positive blood cultures with four different organisms. An echocardiogram was also ordered at this time which showed new onset aortic insufficiency raising suspicion for possible infectious endocarditis. This new finding of aortic insufficiency was significantly changed from an echocardiogram performed on 10/01/2018 showing no evidence of insufficiency. Given that the patient had evidence of infectious endocarditis, Dr. Baptiste consulted our service for an opinion on whether to proceed forward with a RANDELL. Currently at bedside, the patient has no complaints and was expecting to be discharged today. She currently denies any fevers, chills, chest pain, difficulty breathing, new onset rashes or skin changes, recent unexpected weight loss, nausea, vomiting, abdominal discomfort. She does acknowledge some abdominal distention at this time, but notes that today for the first time she has not had any diarrhea. She follows with Dr. Sanchez at [facility] oncology.Her last round of chemotherapy with oxaliplatin (cycle number 23) was on 11/20/2018. PAST MEDICAL HISTORY: 1. Pancreatic adenocarcinoma with metastases to the liver. 2. Neutropenia secondary to chemotherapy. 3. 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 4. Type 2 diabetes. 5. History of pulmonary embolism, currently on Xarelto. PAST SURGICAL HISTORY: 1. section. 2. Cholecystectomy. 3. Hysterectomy. MEDICATIONS: Please see below. ALLERGIES: Please see below. FAMILY HISTORY: Noncontributory. SOCIAL HISTORY: Denies alcohol use, tobacco use or intravenous drug use. Acknowledges occasional marijuana use for her cancer. PHYSICAL EXAMINATION: VITAL SIGNS: Temperature 98.3, pulse 71, respiratory rate 18, blood pressure 125/74, pulse oximetry 98% on room air. Weight is 102.6 kg. GENERAL APPEARANCE: The patient is a morbidly obese female who appears her stated age. She is in no acute distress. She is remarkably well appearing. HEENT: Head is normocephalic, atraumatic. Extraocular muscles intact. Mucous membranes moist. No jugular venous distention (JVD). No carotid bruits on auscultation. CARDIOVASCULAR: Normal S1, S2. No diastolic murmurs appreciated on auscultation. RESPIRATORY: Clear to auscultation with full breath sounds bilaterally. No wheezes, crackles, rhonchi. ABDOMEN: Soft, moderately distended. Bowel sounds present. No rebound, rigidity or guarding. No hepatosplenomegaly appreciated. No masses or ecchymosis appreciated. EXTREMITIES: Exhibits 2+ pulses in bilateral radial and dorsalis pedis arteries. No peripheral edema or cyanosis. NEUROLOGIC: No focal deficits appreciated on examination. INTEGUMENT: No rashes, lesions, or finger nail changes appreciated. LABORATORY DATA: Please see below. ASSESSMENT AND PLAN: 1. 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 Based on modified [place] criteria, the patient does meet diagnostic criteria for infectious endocarditis with major criteria being echocardiogram with an intracardiac mass on valve or supporting structures suggestive of vegetation, minor criteria being a history of febrile episodes, vascular phenomenon, including splenic infarction diagnosed on a CT of the abdomen, and microbiologic evidence, including a positive blood culture that will not meet the standard for a major criteria. While splenic infarction would be a criterion for surgical intervention in a patient with infectious endocarditis, I am not sure if this patient is the best surgical candidate given her history of advanced pancreatic cancer, so at this time we would likely suggest the continuation of conservative management by way of antibiotic treatment. If in the future she fails antimicrobial therapy, then a new discussion can be had as to whether or not she should pursue surgical intervention. This discussion should also be had in conjunction with her oncologist, Dr. Sanchez, given that she will follows the patients cancer and chemo treatments actively. The patient did say during the encounter that if conservative management with antibiotic therapy alone was a reasonable option for treatment that she would prefer to do it that way, but that she was not closed to the idea of possible surgery as long as it would not significantly impact her function/quality of life or shorten her life. Addendum MD Jomar: Agree with note above. Probability of infectious endocarditis is very high. RANDELL is unlikely to global director air and climate change as the patient is probably not a candidate for open heart surgery. MARCELO
[2018-12-04] MEDS: RIVAROXABAN 20 MG TAB (XARELTO) PO SCH (17:40)
--- NOTE | 2018-12-04 18:13 | IPNPDOC ---
Text Note Date of Service The patient was seen on 12/04/18. NOTE Ms Cherry was seen on afternoon rounds, she is doing well, denies any abdominal pain currently, no sob, no chest pain, no n/v or diarrhea. She is in good spirits again. She has no acute complaints. PHYSICAL EXAMINATION: VITAL SIGNS: Please see below. GENERAL APPEARANCE: Pleasant 58 yo female, resting in bedside chair, NAD HEENT: NCAT, neck supple, no JVD, EOMI RESPIRATORY: CTA b/l, no wheezing, rales or rhonchi CARDIOVASCULAR: normal s1 and s2, no murmurs rubs or gallops ABDOMEN: soft, nabsx4, no rebound ridgity or guarding, no hepatosplenomegaly or masses appreciated EXTREMITIES: no edema, cyanosis or mottling NEUROLOGICAL: no focal deficits LABORATORY DATA: Please see below. PLAN: 1. Resolved febrile episodes with associated positive blood cultures - Culture taken of her chemo port yesterday still pending, we will check these tomorrow, CT ab/pelvis did not show intra-abdominal abscess as source of bacteremia. The bacteria growing are largely of GI source however they could also be suspect in endocarditis, it is very suspicious that on TTE she has worse janet Aortic insufficiency and on CT ab/pelvis there was noted to be splenic infarcts. Cardiology has been consulted, and would like to treat with IV abx and hold on RANDELL for now, she is likely not a good surgical candidate should she need valve surgery ( although no indication for such at this time) and her prognosis from her pancreatic adeoncarcinoma is poor. We would suggest removing her right sided port, and gaining perphrial access, even a PICC instead, and treating for 4 weeks ( from the time of removal of port, she could have seeding from this) with IV Rocephin for suspect endocarditis. This was discussed with primary team. 2. Anemia -could be related to her pancreatic cancer, some worsening anemia today, cannot appreciate iron studies, she is s/p 2 units RBC, Hg appears stable. This is left to primary care mgmt. 3. Pancreatic adenocarcinoma -she receives chemotherapy through [facility], follow up outpt once discharged VS,Fishbone, I+O VS, Fishbone, I+O Laboratory Tests 12/04/18 05:33 Red Blood Count 3.27 L, Mean Corpuscular Volume 85.6, Mean Corpuscular Hemoglobin 26.3 L, Mean Corpuscular Hemoglobin Concent 30.7 L, Red Cell Distri bution Width 17.8 H, Calcium Level 7.7 L, Aspartate Amino Transf (AST/SGOT) 71 H, Alanine Aminotransferase (ALT/SGPT) 31, Alkaline Phosphatase 154 H, Total Bilirubin 0.4, Total Protein 5.2 L, Albumin 2.5 L Vital Signs Date Time Temp Pulse Resp B/P (MAP) Pulse Ox O2 Delivery O2 Flow Rate FiO2 12/04/18 16:00 97.8 75 18 124/64 (84) 98 12/02/18 11:00 Room Air l I&O- Last 24 Hours up to 6 AM 12/04/18 06:00 Intake Total 1340 ml Output Total 700 ml Balance 640 ml GME ATTESTATION GME ATTESTATION My faculty preceptor for this patient encounter was physically present during the encounter and was fully available. All aspects of the patient interview, examination, medical decision making process, and medical care plan development were reviewed and approved by the faculty preceptor. The faculty preceptor is aware and concurs with the plan as stated in the body of this note and will attest to such by his/her cosignature. BRITTNEY WALKER DO Dec 04, 2018 18:12
[2018-12-05] MEDS: SLF 3 ML SYR IV SCH ×3 (05:49→21:25)
[2018-12-05 05:58] LABS: HEMATOCRIT 28.5 % (36.0-47.0); HEMOGLOBIN 8.8 g/dl (12.0-15.5); MEAN CORPUSCULAR HEMOGLOBIN 26.1 pg (27.0-33.0); MEAN CORPUSCULAR HGB CONC 30.9 g/dl (32.0-36.5); MEAN CORPUSCULAR VOLUME 84.6 fl (80.0-96.0); RED BLOOD COUNT 3.37 10^6/uL (4.00-5.40); WHITE BLOOD COUNT 2.8 10^3/uL (4.0-10.0)
[2018-12-05 06:04] LABS: PLATELET COUNT, AUTOMATED 75 10^3/uL (150-450)
[2018-12-05 06:28] LABS: ALBUMIN 2.6 GM/DL (3.2-5.2); ALT/SGPT 29 U/L (12-78); BILIRUBIN,TOTAL 0.3 MG/DL (0.2-1.0); BLOOD UREA NITROGEN 7 MG/DL (7-18); CALCIUM LEVEL 7.8 MG/DL (8.5-10.1); CARBON DIOXIDE LEVEL 24 MEQ/L (21-32); CHLORIDE LEVEL 111 MEQ/L (98-107); GLOMERULAR FILTRATION RATE > 60.0 (>51); GLUCOSE, FASTING 97 MG/DL (70-100); POTASSIUM SERUM 3.6 MEQ/L (3.5-5.1); SODIUM LEVEL 142 MEQ/L (136-145); TOTAL PROTEIN 5.4 GM/DL (6.4-8.2)
[2018-12-05 08:00] VITALS: BP 114/58
--- NOTE | 2018-12-05 08:22 | IPNPDOC ---
Subjective Date Seen The patient was seen on 12/05/18. Subjective Chief Complaint/HPI No f/c. Appetite improving. No new complaints Constitutional: Denies: Chills, Fever Pulmonary: Denies: Dyspnea, Cough Cardiovascular: Denies: Chest Pain, Palpitations Gastrointestinal: Denies: Nausea, Vomiting, Abdominal Pain, Diarrhea, Constipation Objective Physical Examination General Exam: Positive: Alert, No Acute Distress ENT Exam: Positive: Mucous membr. moist/pink Chest Exam: Positive: Clear to auscultation, Normal air movement; Negative: Rales, Rhonchi, Wheezing Heart Exam: Positive: Rate Normal, Normal S1, Normal S2 Abdomen Exam: Positive: Normal bowel sounds, Soft; Negative: Tenderness Extremity Exam: Negative: Edema Neuro Exam: Positive: Normal Speech Psych Exam: Positive: Mood NL Assessment /Plan Problems (1) Endocarditis Status: Acute Problem Text: Echo: In appropriate clinical setting, fairly rapid worsening of aortic insufficiency certainly raises possibility of infectious endocarditis. If there is a high clinical suspicion, then transesophageal echocardiogram will certainly provide much better resolution and diagnostic accuracy. Per Cardiology and ID - Would treat for likely Endocardiitis with Rocephin IV Port cultured yesterday - results pending Xeralto given last pm - held now so plan to remove Port tomorrow and place PICC in anticipation for home Iv abx - Need PFS to arrange home IV abx (2) Fever Status: Acute Problem Specific Plan: Monitor Clinically Problem Text: 12/05 - see above - treat for probable endocarditis 12/04: Echo shows worsening aortic regurg and possible vegetations, CT shows findings c/w splenic infarcts, very suspicious for bacterial endocarditis. Remains afebrile on ceftriaxone. TE is an option for confirmation but there may be enough evidence now to support dx. S pseudoporcinus has been associated with bacterial endocarditis. Will also request cardiology opinion. 12/03: Four different microbes identified, all likely oral/gi origin. Has defervesced and WBC normalized on Rocephin. Will request an opinion from Dr. Jacky Bocanegra regarding these organisms and recommendation for management. Will request Echo. 12/03 Await final culture results. Afebrile for more than 24 hours. Abx D5 12/02 -- blood cultures grew Strep oralis. Afebrile. Changed antibiotics to ceftriaxone. Etiology unclear at this time, Aleman cultures pending 1 prelim GPC clusters. on Vanco/meropenam Tmax 100.7 (3) Hx of pulmonary embolus Status: Chronic Problem Text: Cont Xarelto - Held in anticipation for PICC placement tomorrow (4) Pancytopenia due to chemotherapy Response to Treatment: Improving (5) Anemia Status: Acute Problem Text: 12/04 Hgb 8.6, continue to monitor 12/03 Hgb 9.1 last night after 2 units, 9.0 this morning, monitor. Neg OB 12/02 -- Patient consented to a blood transfusion, and received 2 units PRBCs. Worse today. Follow up labwork after IV fluid rate cut back demonstrates improvement. With no signs of bleeding, will recheck tomorrow. (6) Pancreatic carcinoma Status: Chronic Response to Treatment: Stable Problem Specific Plan: Monitor Clinically Problem Text: Chemotherapy last 11/20. Mgmt per [facility] Onc Plan/VTE VTE Prophylaxis Ordered?: Yes Disposition Prbable D/ C home tomorrow after PICC placement VS, I&O, 24H, Fishbone Vital Signs/I&O Vital Signs Date Time Temp Pulse Resp B/P (MAP) Pulse Ox O2 Delivery O2 Flow Rate FiO2 12/04/18 23:59 98.3 77 18 126/61 (82) 97 12/02/18 11:00 Room Air I&O- Last 24 Hours up to 6 AM 12/05/18 06:00 Intake Total 650 ml Output Total 400 ml Balance 250 ml Laboratory Data 24H LABS Laboratory Tests 2 12/04/18 11:40: Bedside Glucose (Misc Panel) 112H 12/04/18 17:10: Bedside Glucose (Misc Panel) 117H 12/04/18 21:56: Bedside Glucose (Misc Panel) 119H 12/05/18 05:30: Nucleated Red Blood Cells % (auto) 0.0, Anion Gap 7L, Glomerular Filtration Rate > 60.0, Blood Urea Nitrogen 7, Creatinine 0.60, Sodium Level 142, Potassium Level 3.6, Chloride Level 111H, Carbon Dioxide Level 24, Calcium Level 7.8L, Aspartate Amino Transf (AST/SGOT) 37, Alanine Aminotransferase (ALT/SGPT) 29, Alkaline Phosphatase 172H, Total Bilirubin 0.3, Total Protein 5.4L, Albumin 2.6L, Albumin/Globulin Ratio 0.93L CBC/BMP Laboratory Tests 12/05/18 05:30 Red Blood Count 3.37 L, Mean Corpuscular Volume 84.6, Mean Corpuscular Hemoglobin 26.1 L, Mean Corpuscular Hemoglobin Concent 30.9 L, Red Cell Distribution Width 18.1 H, Calcium Level 7.8 L, Aspartate Amino Transf (AST/SGOT) 37, Alanine Aminotransferase (ALT/SGPT) 29, Alkaline Phosphatase 172 H, Total Bilirubin 0.3, Total Protein 5.4 L, Albumin 2.6 L Microbiology Microbiology 12/03/18 Blood Culture - Preliminary, Resulted No growth after 24 hours . All specim... 11/29/18 Blood Culture - Final, Complete NO GROWTH AFTER 5 DAYS 11/29/18 Blood Culture - Final, Complete Streptococcus Oralis Neisseria Cinerea 11/29/18 Blood Culture - Final, Complete Streptococcus Pseudoporcinus Granulicatella Adiacens 12/02/18 Stool Occult Blood (ALBINO) - Final, Complete 11/30/18 Gastrointestinal Tract Panel (PCR) - Final, Complete 11/29/18 MRSA Screen - Final, Complete BEATA MCDERMOTT PA-C Dec 05, 2018 08:22
[2018-12-05] MEDS: POTASSIUM CHLORIDE 10 MEQ SR TABLET PO SCH (09:39)
[2018-12-05] MEDS: cefTRIAXone SOD 2 GM in D5W MINI-BAG PLUS 50 ML IV SCH (09:39)
[2018-12-05] MEDS: LACTOBACILLUS ACIDOPHILUS CAP (BACID) PO SCH (09:39)
[2018-12-05] MEDS: OMEPRAZOLE 20 MG CAP PO SCH (09:40)
[2018-12-05] MEDS: NS 1,000 ML IV SCH ×2 (09:42→22:37)
--- NOTE | 2018-12-05 09:46 | IPN ---
DATE OF SERVICE: 12/05/2018 The patient was seen this morning and examined at bedside. No acute events overnight. She currently has no complaints at this time and denies any chest pain, difficulty breathing, shortness of breath, nausea, vomiting, or diarrhea. PHYSICAL EXAMINATION: VITAL SIGNS: Temperature 97.8 degrees Fahrenheit, pulse 76, respiratory rate 18, blood pressure 114/58, pulse oximetry 96% on room air. GENERAL APPEARANCE: A morbidly obese female in no acute distress. The patient is happy and well-appearing. HEENT: Head is normocephalic, atraumatic. Mucous membranes moist. No jugular venous distention (JVD). No carotid bruits on auscultation. CARDIOVASCULAR: Regular rate and rhythm. Normal S1 and S2. Continue to be no diastolic murmurs appreciated on auscultation. RESPIRATORY: Clear to auscultation bilaterally with full breath sounds. No wheezes, crackles, rhonchi. ABDOMEN: Soft. Continued moderate distention. Nontender. Bowel sounds present. EXTREMITIES: 2+ pulses in bilateral radial arteries. No peripheral edema or cyanosis. NEUROLOGIC: No focal deficits. ASSESSMENT AND PLAN: Infectious endocarditis. After discussion with the patient this morning, she remains agreeable to continuing with antibiotic therapy and having a peripherally inserted central catheter (PICC) line placed to allow for her to receive this therapy at home. She will likely need her port removed per infectious disease recommendations and will need a new one placed if she can continue receiving chemotherapy. We did discuss with the primary team, specifically Dr. Baptiste, about contacting Dr. Sanchez so that we could get an opinion regarding her prognosis moving forward and whether she has had any recent setbacks. Of note, because infectious endocarditis can cause heart block, we do recommend obtaining an electrocardiogram (EKG) once a week. We did discuss with the patient that while she could go for surgery that it would be a risky procedure, given that it is an invasive surgery and with her neutropenia, she would be at higher risk for subsequent postoperative complications and infection. The patient was agreeable to continuing with her antibiotic therapy. With regard to her transesophageal echocardiogram (RANDELL), given that she already meets diagnostic criteria, we are comfortable calling this infectious endocarditis. However, if infectious disease feels it is appropriate, we are willing to proceed forward with a RANDELL to confirm aortic valve vegetations. The patient had no questions at this time and was comfortable with the plan moving forward. MTDD
[2018-12-05] MEDS ORDERED: BUPIVACAINE LIPOSOME/PF 1.3% 20ML VIAL (13.3MG/ML)(EXPAREL)(C9290 PER1MG) As Ordered ONE (11:31)
[2018-12-05] MEDS ORDERED: propofoL 200 MG/20 ML VIAL As Ordered ONE (11:55)
[2018-12-05] MEDS ORDERED: fentaNYL 100 MCG/2 ML INJECTION (J3010) As Ordered ONE (11:55)
[2018-12-05] MEDS ORDERED: LIDOCAINE 2% INJ 100 MG/5 ML SDV (FOR ANES.) As Ordered ONE (11:55)
[2018-12-05] MEDS ORDERED: MIDAZOLAM INJ 2 MG/2 ML VIAL (J2250) As Ordered ONE (11:55)
[2018-12-05] MEDS ORDERED: ONDANSETRON 4MG/2ML VIAL (J2405) As Ordered ONE (11:55)
[2018-12-05] MEDS ORDERED: KETOROLAC 60 MG/2 ML VIAL (J1885) As Ordered ONE (11:55)
--- NOTE | 2018-12-05 12:10 | CR ---
DATE OF CONSULTATION: 12/05/2018 The patient is seen through request of Dr. Leoncio Baptiste for a presumed diagnosis of endocarditis with a retained Depaai-H-Zwjw. The patient is a 58-year-old white female with a past medical history of severe stage IV pancreatic adenocarcinoma with the possibility of cholangiocarcinoma. First diagnosed with liver metastases in 2014 who is undergoing chemotherapy. She has had two ports placed, with one being infected and removed, requiring a wound vacuum-assisted closure (VAC) and a second one placed on the right side in February 2018. Her most recent story starts approximately 1 week ago when she presented to the emergency room with a fever. Cultures were done, and she was released from the emergency room but presented on 11/29/2018 with 102 fever with shaking chills. She denied chest pain but did complain of diarrhea and vomited once just prior to the ambulance getting to her home. She denied any lower extremity swelling. A blood culture eventually grew Streptococcus oralis and Neisseria cinerea, along with Streptococcus pseudoporcinus and Granulicatella adiacens. These cultures were drawn on her admission on 11/29/2018. Her GI panel has been negative. Occult blood in her stool was also negative. Her fever persisted; and because of the positive blood cultures, echocardiogram was obtained on 12/03/2018. Her aortic insufficiency which she previously had has increased dramatically. Vegetations are not described over the fact that her aortic insufficiency is much worse with positive blood cultures, endocarditis is a high probability diagnosis. I am asked to remove her Danurp-J-Bufa. PAST MEDICAL HISTORY: The above pancreatic and/or ductal adenocarcinoma with liver metastasis. History of pulmonary embolism. Chemotherapy neutropenia. Type 2 diabetes. Morbid obesity. PAST SURGICAL HISTORY: Cholecystectomy. section. Abdominal hysterectomy. Two Cekomw-A-Odgb placements. HABITS: Denies smoking, although she has used marijuana for nausea and pain related to her cancer. Does not imbibe alcohol. FAMILY HISTORY: Father of a myocardial infarction ([place]) at the age of 54 and brother the same at age 56. ALLERGIES: None. CHILD HISTORY: Not significant to the acute situation. OCCUPATIONAL HISTORY: Not pertinent to the acute situation. REVIEW OF SYSTEMS: CONSTITUTIONAL: See history of present illness (HPI). Without weight loss. EYES: Without diplopia. Without amaurosis fugax. Without prior jaundice. NOSE: Without epistaxis. RESPIRATORY: Denies shortness of breath, cough, or sputum production, orthopnea, or paroxysmal nocturnal dyspnea. CARDIAC: Denies tachycardias, palpitations, anginal-type pain. GASTROINTESTINAL (GI): See HPI. Without melena or hematochezia. With nausea and vomiting once as noted above and with diarrhea as a prodrome to her fever. GENITOURINARY (): Without dysuria or hematuria. With history of renal stones. ENDOCRINE: With diabetes. Without thyroid disease. HEMATOLOGIC: On Xarelto but denies prolonged bleeding times or easy bruisability. PSYCHIATRIC: Without pathological anxieties, depressions, or psychoses. NEUROLOGIC: Without paresthesias, paralyses, or seizures. PHYSICAL EXAMINATION: VITAL SIGNS: Today show a temperature is 97.8 with a heart rate of 76 in a sinus rhythm, respiratory rate of 18 without the use of accessory muscles who is 96% saturated on room air and whose blood pressure is 114/58. EYES: Pupils equal and reactive to light. Extraocular movements intact. Sclerae anicteric. NOSE: Without deformity. MOUTH: Shows her mucous membranes to be pink and moist. Lips and commissures without lesions. There is no thrush. HEAD: Is normocephalic. NECK: Is supple. There is no jugular venous distention, no subcutaneous emphysema. Trachea is midline. She has 2+ carotid upstrokes without bruits or transmitted murmurs. There is no lymphadenopathy or thyromegaly. LUNGS: Show normal vesicular sounds on either side without rales or rhonchi or wheezing. Percussion note is full to the diaphragm. CARDIAC EXAMINATION: Is without murmurs, clicks, gallops, or rubs. I cannot feel his point of maximal impulse (PMI). S1 and S2 are normal. ABDOMEN: Is soft, nontender. Bowel sounds are positive. There is no hepatomegaly and no costovertebral angle (CVA) tenderness. EXTREMITIES: Show no pretibial edema. No calf tenderness. No differential swelling of the upper extremities. SKIN: Is warm, dry, and perfused without cyanosis or mottling, including that of the nail beds or the knees. There are no splinter hemorrhages, ulcers, nodes, or Janeway lesions. NEUROLOGICAL: Shows II-XII intact, along with gross motor and gross sensation intact. Gait is not tested. PSYCHIATRIC: Shows her to be awake and alert and oriented times three with appropriate mood and affect and conversational. INVESTIGATIONS: Her white count today is now 2.8 probably secondary to chemotherapy with hemoglobin and hematocrit of 8.8 and 28.5 with a platelet count of 75. There is no recent differential. The last differential was 11/29/2018 with 96% neutrophils, 1% lymphocytes, and 1% monocytes. No immature forms were noted, and there were no toxic granulations noted. Chemistries today show normal electrolytes with a BUN and creatinine of 7 and 0.6, a glucose of 96, a calcium of 7.8. Liver functions are normal. Albumin is 2.6 with a corresponding calcium of 7.8. Her last chest x-ray was done on 11/27/2018, PA and lateral. It showed sharp costophrenic angles. Cardiac flow was normal, and there were no posterior infiltrates on the lateral film. IMPRESSION: 1. Stage IV pancreatic or biliary adenocarcinoma, poorly differentiated, undergoing chemotherapy with a port in place. 2. Probable endocarditis. 3. Diabetes. 4. Neutropenia. 5. Thrombocytopenia. All chemotherapy-induced. 6. Anemia, giving her a pancytopenia. PLAN AND DISCUSSION: As the probability of endocarditis is high and she has a port in place, I have been asked to remove it, which is indeed indicated. I will, therefore, take her to the operating room this afternoon and remove her Iavfih-B-Ilwe under monitored anesthesia care (MAC). After inspecting the wound, I will make a decision as to whether to primarily close the wound or leave it open with a wound VAC. Assuming the blood culture that she is growing shows organisms from the gut and not particularly from her Cjifwl-Y-Aebf site.
[2018-12-05] MEDS ORDERED: ONDANSETRON 4MG/2ML VIAL (J2405) IV PRN (12:45)
[2018-12-05] MEDS ORDERED: PERCOCET 5MG/325MG TAB PO PRN (12:45)
[2018-12-05] MEDS ORDERED: LR 1,000 ML IV SCH (12:45)
[2018-12-05 12:59] VITALS: BP 116/64
--- NOTE | 2018-12-05 13:04 | REP ---
Portable chest x-ray: Single view. History: Postoperative evaluation. Comparison study: November 29, 2018. Findings: There is linear plate-like atelectasis in the left base. Previously noted plate-like atelectasis in the right base is resolved. There is some linear opacity in the right perihilar region today. There is no evidence of pneumothorax or hydrothorax. Impression: Bilateral plate-like atelectasis. No pneumothorax seen. The previously noted right subclavian central venous port has been removed. Electronically Signed by Ritesh Almeida MD 12/05/2018 01:45 P
[2018-12-05] MEDS ORDERED: LIDOCAINE 1% MDV 20ML VIAL As Ordered ONE (14:48)
[2018-12-05 16:00] VITALS: BP 120/68
[2018-12-05] MEDS ORDERED: SODIUM CHLORIDE 0.9% INJ 10 ML SYR IV PRN (16:30)
[2018-12-05] MEDS: SODIUM CHLORIDE 0.9% INJ 10 ML SYR IV SCH (18:50)
[2018-12-05 20:00] VITALS: BP 128/61
[2018-12-05] MEDS: NORCO, ANEXSIA 5/325MG TABLET (HYDROcodone/ACETAMINOPHEN) PO PRN (21:24)
[2018-12-05] MEDS: LOPERAMIDE 2 MG CAPLET PO PRN (22:40)
[2018-12-06] VITALS: BP 124/58
[2018-12-06 04:00] VITALS: BP 99/58
[2018-12-06 05:42] LABS: HEMATOCRIT 29.1 % (36.0-47.0); HEMOGLOBIN 8.8 g/dl (12.0-15.5); MEAN CORPUSCULAR HEMOGLOBIN 26.7 pg (27.0-33.0); MEAN CORPUSCULAR HGB CONC 30.2 g/dl (32.0-36.5); MEAN CORPUSCULAR VOLUME 88.4 fl (80.0-96.0); RED BLOOD COUNT 3.29 10^6/uL (4.00-5.40); WHITE BLOOD COUNT 2.8 10^3/uL (4.0-10.0)
[2018-12-06 05:46] LABS: PLATELET COUNT, AUTOMATED 73 10^3/uL (150-450)
[2018-12-06 06:02] LABS: ALBUMIN 2.4 GM/DL (3.2-5.2); ALT/SGPT 24 U/L (12-78); BILIRUBIN,TOTAL 0.3 MG/DL (0.2-1.0); BLOOD UREA NITROGEN 7 MG/DL (7-18); CALCIUM LEVEL 7.9 MG/DL (8.5-10.1); CARBON DIOXIDE LEVEL 22 MEQ/L (21-32); CHLORIDE LEVEL 115 MEQ/L (98-107); CREATININE FOR GFR 0.66 MG/DL (0.55-1.30); GLOMERULAR FILTRATION RATE > 60.0 (>51); GLUCOSE, FASTING 99 MG/DL (70-100); POTASSIUM SERUM 3.6 MEQ/L (3.5-5.1); SODIUM LEVEL 144 MEQ/L (136-145); TOTAL PROTEIN 5.6 GM/DL (6.4-8.2)
[2018-12-06] MEDS: SLF 3 ML SYR IV SCH ×2 (06:56→08:40)
[2018-12-06] MEDS: SODIUM CHLORIDE 0.9% INJ 10 ML SYR IV SCH (06:56)
[2018-12-06 08:00] VITALS: BP 121/67
[2018-12-06] MEDS: LACTOBACILLUS ACIDOPHILUS CAP (BACID) PO SCH (08:39)
[2018-12-06] MEDS: OMEPRAZOLE 20 MG CAP PO SCH (08:40)
[2018-12-06] MEDS: POTASSIUM CHLORIDE 10 MEQ SR TABLET PO SCH (08:40)
[2018-12-06] MEDS: cefTRIAXone SOD 2 GM in D5W MINI-BAG PLUS 50 ML IV SCH (08:40)
[2018-12-06] MEDS: ACETAMINOPHEN TAB 650MG DOSE (2X325MG) PO PRN (08:47)
--- NOTE | 2018-12-06 09:25 | REP ---
PICC line insertion under ultrasound guidance. The procedure was performed by STONE Uribe, under the direct supervision of Dr. Wang. The risks and benefits of the procedure were explained to the patient and informed consent was obtained the verbally and written. Directly prior to the start of the procedure, a formal timeout was completed in the procedure room. The left basilic vein was localized using ultrasound guidance. The skin was prepped and draped in the sterile fashion. 1 ml 1% lidocaine was used as a local anesthetic. Using ultrasound guidance the left basilic vein was cannulated and a 0.018 guidewire was inserted and advanced to the SVC using fluoroscopic guidance. The needle was removed and a 5.5 Romansh dilator and peel-away sheath was inserted over the guidewire. A 5.5 Romansh dual lumen catheter was cut to the length of 45 cm. The dilator was removed and the catheter was inserted over the guide wire with the tip ending in the SVC. The peel-away sheath was removed and the catheter was flushed with heparinized saline as per hospital protocol. The catheter was affixed to the skin and a sterile dressing was applied. The patient tolerated the procedure well and there were no immediate complications. 0.1 minutes of fluoroscopy time was utilized for this procedure. Some fluoroscopic images are performed with last image hold technology. These images require no additional radiation. Reviewed by STONE Barnett 12/06/2018 08:22 A Electronically Signed by Sung Wang MD 12/06/2018 09:17 A
[2018-12-06] MEDS ORDERED: ACET1TAB55 PO (09:28)
[2018-12-06] MEDS ORDERED: RISATAB3 PO (09:28)
[2018-12-06] MEDS ORDERED: CEFT2ADD INJ (09:28)
--- NOTE | 2018-12-06 10:02 | ECGEPIP ---
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
--- NOTE | 2018-12-06 11:01 | IPN ---
DATE: 12/06/2018 SUBJECTIVE: Patient was seen this morning at bedside and had no acute events overnight. She currently has no complaints at this time and denies any chest pain, difficulty breathing, nausea, vomiting, diarrhea, new rashes or skin lesions. She is aware of the plan moving forward in terms of her treatment for her endocarditis and the need for a weekly ECG with her primary care provider Trini Tena PA-C. PHYSICAL EXAMINATION: VITAL SIGNS: Temperature 97 degrees, pulse 79, respiratory rate 18, blood pressure 121/67, pulse ox 95% on room air. GENERAL APPEARANCE: Patient is in no acute distress and well-appearing. HEENT: Head is normocephalic, atraumatic. Mucous membranes are moist. Extraocular muscles intact. No jugular venous distention (JVD). CARDIOVASCULAR: Regular rate and rhythm. Normal S1 and S2. No murmurs appreciated on auscultation. RESPIRATORY: Clear to auscultation bilaterally with full breath sounds. No wheezes, crackles or rhonchi. ABDOMEN: Soft, nontender. Mild to moderate distension. Bowel sounds present. EXTREMITIES: No peripheral edema. NEUROLOGIC: No focal deficits. ASSESSMENT/PLAN: 1. Infectious endocarditis: Yesterday patient had old port taken out and a peripherally inserted central catheter (PICC) line put in for her antimicrobial therapy. From a cardiology standpoint, there is no current further management needed. If the patient does begin to show evidence of recurrent emboli or persistent fevers, we would as that either her primary or someone please contact us to let us know. We also recommend weekly EKGs to evaluate for possible heart block caused by the endocarditis. It is a difficult decision whether or not to pursue surgery.We recommend that decision should be made not only in conjunction with her primary care (PC) but also Dr. Sanchez as we do not want to make what time Ms Cherry has left more difficult or worse as a result of surgery that may not ultimately have much value. We will be signing off at this time from the case. Please contact our service with any questions. MARCELO
[2018-12-06 12:00] VITALS: BP 130/74
--- NOTE | 2018-12-06 15:25 | RO ---
DATE OF PROCEDURE: 12/05/2018 PREPROCEDURE DIAGNOSIS: Endocarditis, retained Yucqlm-C-Cdri. POSTPROCEDURE DIAGNOSIS: Endocarditis, retained Fjlisq-E-Yytb. PROCEDURE: Removal of right Fawgnh-D-Etph. SURGEON: Dr. Arslan Dolan COCOA ROASTER: ANESTHESIA: DESCRIPTION OF PROCEDURE: Under satisfactory monitored anesthesia care (MAC) anesthesia, the patient was prepped and draped in the usual sterile fashion. The Ufljao-M-Bhpb site was infiltrated with Exparel. Incision was made and carried down to the port glistening capsule. Capsule was incised and the stem of the port was identified. The stem was identified and the catheter was ceased with a clamp and then removed in toto without difficulty. Pkbvdu-D-Bbkw tract was oversewn with ftcuae-wn-ikjff #3-0 Vicryl suture. The two sutures were removed from the Uvpvwi-B-Kjue and the Nhihuf-X-Bgou delivered to the field. It was sent for microbiology including aerobic and anaerobic fungal and TB. Glistening capsule was then removed. It should be noted that after removal of the Tsapnm-Q-Mlyw that the wound did not look at all infected and I therefore decided that we would close the wound primarily. The subcutaneous tissue was closed with a running #3-0 Vicryl suture and the skin was closed with a running #4-0 Monopril subcuticular suture. The patient tolerated the procedure well and left the operating room in satisfactory condition to the recovery room.
[2018-12-06 16:00] VITALS: BP 136/70
--- NOTE | 2018-12-06 18:22 | IPN ---
DATE: 12/06/2018 This is a postoperative wound check. The patient is doing well and sitting up comfortably in bed, speaking with visitors. her wound is clean and dry. There is no sign of infections or fluctuance. I will, therefore, see her back in the office for suture removal in 7-10 days.
--- NOTE | 2018-12-06 22:38 | DSES ---
DATE OF ADMISSION: 11/29/2018 DATE OF DISCHARGE: 12/06/2018 PRIMARY CARE PHYSICIAN: Trini Tena HISTORY: This is a 58-year-old female patient who has a history of metastatic pancreatic cancer who follows with Dr. Sanchez for oncology in the outpatient setting who presented to [facility] Emergency Room with fever that began 24 hours prior to her presentation with some confusion. She was admitted to the hospital for presumed sepsis, lactic acidosis. She was started on intravenous (IV) vancomycin and meropenem. Blood cultures and urine cultures were obtained. Blood cultures revealed Streptococcus oralis, Neisseria cinerea, Streptococcus pseudoporcinus, and Granulicatella adiacens. She therefore had an echocardiogram, which showed progression of aortic valve insufficiency, and therefore the diagnosis of presumed endocarditis was discovered. The patient was seen by cardiology as well as infectious disease. Infectious disease recommended removal of her port. After removal of her port, she should have 4 weeks of IV Rocephin. Cardiology recommended weekly EKGs and at this point advised that transesophageal echocardiogram could be withheld. Patient is a poor surgical candidate in the event that her aortic valve insufficiency progresses. I have discussed this with her. She feels as though, even if surgery were recommended, she does not feel as though she would be apt to proceed. She is quite realistic about her poor prognosis associated with her metastatic cancer. She has had a peripherally inserted central catheter (PICC) line placed at this time and prior to this had a blood culture that is negative, and therefore her home care is being coordinated for IV antibiotics daily for an additional 27 days with today being day #1 IV antibiotics after having her port removed. DISCHARGE DIAGNOSES: 1. Presumed endocarditis. 2. History of pulmonary embolism. 3. Pancytopenia secondary to anemia. 4. Metastatic pancreatic carcinoma. 5. Diabetes mellitus, type 2. 6. Morbid obesity. 7. Port removal. 8. Polymicrobial bacteremia. DISCHARGE MEDICATIONS: - Rocephin 2 grams IV daily times 27 additional days - probiotics one tablet daily - acetaminophen 650 mg every 4 hours as needed for fever or pain - aspirin 81 mg daily - ferrous sulfate 325 mg daily - [place] 5/325 one tablet three times a day as needed for pain - olanzapine 10 mg by mouth two times weekly - Zofran 8 mg by mouth twice daily as needed for nausea - potassium chloride 20 mEq by mouth daily - prochlorperazine malleate 10 mg by mouth every 6 hours as needed for nausea - Xarelto 20 mg by mouth at bedtime - zolpidem 5 mg by mouth at bedtime as needed for insomnia DISCHARGE PLAN: The patient to be discharged home with IV antibiotics. She will need to see Dr. Bustos, Dr. Bocanegra, Dr. Sanchez, and Trini Tena on the outpatient setting, all within 7-10 days. She should have weekly EKGs. She should have a complete blood count (CBC) and comprehensive metabolic panel (CMP) next week. Her activity should be as tolerated. Her diet is regular. edited: 12/07/2018 0618 tkf MARCELO
== END 2018-12-06 18:04 | disposition home or self-care (01) | DRG 193 ==
LOC: EDBD 15:21 → M ED 15:21 → M ED INP 17:01 → M PCU 20:10
PROVIDERS: ADMIT Internal Medicine; ATTEND Family Medicine
PROC: 30233N1 Transfusion of Nonautologous Red Blood Cells into Peripheral Vein, Percutaneous Approach (ICD-10-PCS; principal; 2018-12-02)
PROC: 02HV33Z Insertion of Infusion Device into Superior Vena Cava, Percutaneous Approach (ICD-10-PCS; 2018-12-05)
PROC: 0WP803Z Removal of Infusion Device from Chest Wall, Open Approach (ICD-10-PCS; 2018-12-05)
DX: I33.0 Acute and subacute infective endocarditis (principal); D61.810 Antineoplastic chemotherapy induced pancytopenia; C78.7 Secondary malignant neoplasm of liver and intrahepatic bile duct; E87.2 Acidosis; D70.1 Agranulocytosis secondary to cancer chemotherapy; E66.01 Morbid (severe) obesity due to excess calories; C25.9 Malignant neoplasm of pancreas, unspecified; E11.9 Type 2 diabetes mellitus without complications; Z86.711 Personal history of pulmonary embolism; Z79.899 Other long term (current) drug therapy; Z79.82 Long term (current) use of aspirin; T45.1X5A Adverse effect of antineoplastic and immunosuppressive drugs, initial encounter

== ENCOUNTER → 2018-12-10 | Outpatient (REF) | payer BC ==
[~2018-12-10] MED LIST changes: +ACET1TAB55 PO; +ASPI81TA85 PO; +ATIV2INJ5 IVP; +ATRO0.05 IVP; +CEFT1INJ65 IV; +CEFT2ADD INJ; +DEXA10VL IV; +EMEN150S IV; +LORA1TAB12 PO; -LORA1TAB4 PO; +OLAN10TA2 PO; +PALO0.252 IV; +PEG6SYR SC; +POTA1TAB14 PO; +RISATAB3 PO; +[UNRECOGNIZED DRUG - CODE] IV; +[UNRECOGNIZED DRUG - CODE] IV; +[UNRECOGNIZED DRUG - CODE] IV; +[UNRECOGNIZED DRUG - CODE] IV
[2018-12-10 12:52] LABS: BASO % 0.5 % (0.0-1.0); EOS % 0.8 % (0.0-3.0); HEMATOCRIT 34.5 % (36.0-47.0); HEMOGLOBIN 10.5 g/dl (12.0-15.5); LYMPH # 0.3 10^3/uL (1.5-4.5); LYMPH % 6.6 % (24.0-44.0); MEAN CORPUSCULAR HGB CONC 30.4 g/dl (32.0-36.5); MEAN CORPUSCULAR VOLUME 85.4 fl (80.0-96.0); MONO # 0.4 10^3/uL (0.0-0.8); MONO % 11.7 % (0.0-5.0); NEUTROPHILS % 79.9 % (36.0-66.0); PLATELET COUNT, AUTOMATED 157 10^3/uL (150-450); RED BLOOD COUNT 4.04 10^6/uL (4.00-5.40); WHITE BLOOD COUNT 3.8 10^3/uL (4.0-10.0)
[2018-12-10 13:20] LABS: ERYTHROCYTE SEDIMENTATION RATE 31 mm/hr (0-30)
[2018-12-10 13:21] LABS: ALBUMIN 2.7 GM/DL (3.2-5.2); ALT/SGPT 212 U/L (12-78); BILIRUBIN,TOTAL 2.5 MG/DL (0.2-1.0); BLOOD UREA NITROGEN 7 MG/DL (7-18); C REACTIVE PROTEIN QUANTITATIV 5.48 MG/DL (0.00-0.30); CALCIUM LEVEL 8.3 MG/DL (8.5-10.1); CARBON DIOXIDE LEVEL 24 MEQ/L (21-32); CHLORIDE LEVEL 109 MEQ/L (98-107); CREATININE FOR GFR 0.54 MG/DL (0.55-1.30); GLOMERULAR FILTRATION RATE > 60.0 (>51); GLUCOSE, FASTING 86 MG/DL (70-100); POTASSIUM SERUM 3.5 MEQ/L (3.5-5.1); SODIUM LEVEL 141 MEQ/L (136-145); TOTAL PROTEIN 6.3 GM/DL (6.4-8.2)
== END ==
LOC: M SHH 12:14
PROVIDERS: ATTEND Family Medicine
DX: R50.9 Fever, unspecified (principal)

== ENCOUNTER 2018-12-12 13:56 | Inpatient (IN) | payer BC ==
[~2018-12-12] VITALS: Ht 154.9 cm; Wt 97.6 kg
[~2018-12-12 13:56] MED LIST changes: -CEFT1INJ65 IV
[2018-12-12] MEDS ORDERED: NS 1,000 ML IV ONE (15:30)
[2018-12-12 16:13] LABS: EOS % 0.5 % (0.0-3.0); HEMATOCRIT 35.6 % (36.0-47.0); HEMOGLOBIN 10.8 g/dl (12.0-15.5); LYMPH # 0.3 10^3/uL (1.5-4.5); LYMPH % 7.8 % (24.0-44.0); MEAN CORPUSCULAR HEMOGLOBIN 26.5 pg (27.0-33.0); MEAN CORPUSCULAR HGB CONC 30.3 g/dl (32.0-36.5); MEAN CORPUSCULAR VOLUME 87.3 fl (80.0-96.0); MONO # 0.5 10^3/uL (0.0-0.8); MONO % 11.3 % (0.0-5.0); NEUTROPHILS # 3.2 10^3/uL (1.8-7.7); NEUTROPHILS % 79.1 % (36.0-66.0); PLATELET COUNT, AUTOMATED 149 10^3/uL (150-450); RED BLOOD COUNT 4.08 10^6/uL (4.00-5.40)
[2018-12-12] MEDS ORDERED: ISOVUE-370 76% 100ML VIAL (Q9967) As Ordered ONE (16:20)
[2018-12-12 16:25] LABS: INR 2.16; PROTHROMBIN TIME 23.9 SECONDS (11.8-14.0)
[2018-12-12 16:26] LABS: PARTIAL THROMBOPLASTIN TIME 45.5 SECONDS (25.0-38.4)
[2018-12-12] MEDS ORDERED: ONDANSETRON 4MG/2ML VIAL (J2405) IV ONE (17:00)
--- NOTE | 2018-12-12 17:15 | REP ---
CT of the abdomen pelvis with IV contrast: The patient has a history of pancreatic carcinoma and hepatic metastases. . The study is performed contiguous with the chest CT. In the visualized lower lung baer are small bilateral pleural effusions. The hepatic parenchyma is diffusely heterogeneous. Most of the right lobe of the liver posteriorly is hypodense. This may represent geographic hepato steatosis. However, is a change from prior studies, therefore Regional hepatic ischemia is also a possibility. I do not identify the hepatic artery embolus by CT. There is a cholecystectomy. This is unchanged. There is mild intrahepatic biliary duct dilatation, unchanged. There is abdominal ascites that has increased in volume. 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 Upper abdominal adenopathy is again identified, predominantly in the tan hepatis, gastrohepatic ligament and paracaval region, unchanged. There is mesenteric stranding in the upper abdomen that has increased. This could be secondary to the increased ascites. Known definite hepatic mass is identified. No peripancreatic phlegmon is identified. The spleen has a mottled appearance, likely from scanning performed during the arterial phase of enhancement. There is an enlarged mesenteric node anterior to the upper pole left kidney, unchanged. The adrenals are unremarkable. Kidneys are unremarkable. There is no bowel distension or obstruction. Pelvis: There is increased volume of ascites. The bladder is unremarkable. No pelvic adenopathy is identified. There is a hysterectomy. Vaginal cuff and adnexa are unremarkable. Impression: There is an increased volume of abdominal ascites. There is diffuse decreased density in the right lobe of the liver posteriorly as an interval change. Geographic hepato steatosis versus ischemia. I do not identify an hepatic artery embolus by CT. Abdominal adenopathy is unchanged. No definite hepatic mass is identified. Cholecystectomy. Mild intrahepatic biliary duct dilatation, unchanged. 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 Electronically Signed by Sung Brooks MD 12/12/2018 05:06 P
[2018-12-12 17:23] LABS: ALBUMIN 2.5 GM/DL (3.2-5.2); ALT/SGPT 197 U/L (12-78); BILIRUBIN,DIRECT 4.3 MG/DL (0.0-0.2); BILIRUBIN,TOTAL 5.3 MG/DL (0.2-1.0); CK-MB VALUE MASS < 1.0 NG/ML (<3.6); CPK CREATINE PHOSPHOKINASE 26 U/L (26-192); LIPASE 464 U/L (73-393); MB/CK RELATIVE INDEX 3.85 (< OR =4); TOTAL PROTEIN 5.9 GM/DL (6.4-8.2); TROPONIN I 0.04 NG/ML (< 0.10)
[2018-12-12] MEDS ORDERED: MORPHINE 4 MG/ML 1ML VIAL/SYRINGE (J2270) IV ONE (18:15)
[2018-12-12] MEDS ORDERED: CIPROFLOXACIN 400 MG in APPROPRIATE DILUENT 1 EA IV ONE (18:45)
[2018-12-12] MEDS ORDERED: ACET1TAB55 PO (18:57)
[2018-12-12] MEDS ORDERED: OLAN10TA2 PO (18:57)
[2018-12-12] MEDS ORDERED: CEFT1INJ65 IV (18:57)
[2018-12-12] MEDS ORDERED: RISATAB3 PO (18:57)
[2018-12-12] MEDS ORDERED: XARE10TA PO (18:57)
[2018-12-12] MEDS ORDERED: MORPHINE 2 MG/ML 1ML SYRINGE (J2270) IV ONE (19:15)
--- NOTE | 2018-12-12 19:20 | ECGEPIP ---
[facility] - ED Test Date: 2018-12-12 Pat Name: JODI GARCIA Department: Room: - Gender: Female Videotape Recording Engineer: ISAK : 1960 Requested By: SERA NUR PA-C Order Number: [id number] Reading MD: Linda Rizvi Measurements Intervals Melba Rate: 91 P: 34 UT: 141 QRS: 9 QRSD: 91 T: QT: 370 QTc: 456 Interpretive Statements SINUS RHYTHM LOW QRS VOLTAGE IN EXTREMITY LEADS INCREASED RATE 12/06/18 Electronically Signed on 12-12-2018 19:20:10 EDT by Linda Rizvi
--- NOTE | 2018-12-12 19:31 | REP ---
CT pulmonary angiogram: With IV contrast. History: Shortness of breath. History of pulmonary embolus. Comparison studies: Comparison study August 23, 2018. Contrast dose: 100 ML of Isovue [address] technique: Helical scanning is acquired and overlapping 1.5 mm and contiguous 3 mm axial images are reformatted. In addition, maximum intensity projection and multiplanar re-formation images are generated in sagittal and coronal imaging projections. CT pulmonary angiographic findings: There is good opacification of the pulmonary arterial tree and there is no CT evidence of pulmonary embolism. The thoracic aorta enhances homogeneously. It is tortuous but there is no evidence of aneurysm or dissection. There are small bilateral pleural effusions. There is a small pericardial effusion. There is mild to moderate upper abdominal ascites. There are coarse plate-like atelectatic changes in the lower lobes bilaterally as well as in the lingula and in the right upper lobe. No pulmonary mass or nodule is appreciated. The spleen is enlarged. There are collateral venous structures in the upper abdomen suggestive of portal hypertension and cirrhosis. Impression: No CT evidence of pulmonary embolus. Small bilateral pleural and pericardial effusions are noted. There is ascites and there is evidence of portal hypertension and possibly cirrhosis in the upper abdomen with splenomegaly. There is bilateral lower lobe and upper lobe discoid atelectasis. Electronically Signed by Ritesh Almeida MD 12/13/2018 07:18 P
--- NOTE | 2018-12-12 20:39 | HPEPDOC ---
General Date of Admission 12/12/18 Date of Service: Dec 12, 2018 Primary Care Physician: TAMIR SINGLETON PA-C Attending Physician: Santy Sam MD Chief Complaint The patient is a 58-year-old female admitted with a reason for visit of Stomach And Chest Pain. Source: Patient Exam Limitations: No limitations Timing/Duration: 24 hours, Getting worse Severity: Moderate Associated Symptoms: Nausea, Vomiting History of Present Illness 58 years old white female with past medical history of packet carcinoma with liver metastases. He was recently admitted and discharged with the left upper quadrant pain came back again with complaining of severe left upper quadrant pain with nausea and vomiting and she is has been is scheduled for possible biliary stent placement by Dr. Ubaldo Ibarra in the hospital. As per patient. Plan is present in left upper quadrant of abdomen, radiating to chest wall associated with nausea, vomiting, not relieved with any medication and is progressive in nature. Denies shortness of breath, syncope Home Medications Scheduled Aspirin (Aspir 81) 81 Mg Tablet.dr, 81 MG PO QHS, (Reported) Ceftriaxone Sodium (Ceftriaxone) 2 Gm Vial, 2 GM IV DAILY, (Reported) STARTED 12/06/18; FOR 27 DAYS Ferrous Sulfate (Ferrous Sulfate) 325 Mg Tablet, 325 MG PO QHS, (Reported) L.acidoph/L.bulg/B.bif/S.therm (Sudha-Bid Caplet) 1 Each Tablet, 1 TAB PO DAILY, (Reported) Potassium Chloride (Potassium Chloride) 20 Meq Tablet.er, 20 MEQ PO DAILY, (Reported) Rivaroxaban (Xarelto) 10 Mg Tablet, 10 MG PO DAILY, (Reported) PREVIOUSLY INPUT 20 MG, BUT LAST PICKED UP AT PHARMACY WAS 10 MG IN SEPTEMBER AND OCTOBER Scheduled PRN Acetaminophen (Acetaminophen) 325 Mg Tablet, 325 MG PO Q4H PRN for PAIN, (Reported) Hydrocodone/Acetaminophen (Edelstein 5-325 Tablet) 1 Tab Tab, 1 TAB PO Q8H PRN for PAIN, (Reported) Olanzapine (Olanzapine) 10 Mg Tablet, 10 MG PO Q2WK PRN for SEVERE NAUSEA, (Reported) TAKES ON CHEMO DAYS PRN Ondansetron HCl (Zofran) 8 Mg Tab, 8 MG PO BID PRN for NAUSEA, (Reported) Prochlorperazine Maleate (Prochlorperazine Maleate) 10 Mg Tab, 10 MG PO Q6H PRN for NAUSEA, (Reported) Zolpidem Tartrate (Zolpidem Tartrate) 5 Mg Tablet, 5 MG PO QHS PRN for INSOMNIA, (Reported) Allergies Coded Allergies: No Known Allergies (Unverified , 08/22/18) Past Medical History Medical History Pancreatic carcinoma with liver metastases, PE, Surgical History , Cholecystectomy, C-sections. [id number] Family History Significant Family History: No pertinent family hx Social History * Smoker: Denies Alcohol: Denies A-FIB/CHADSVASC A-FIB History Current/History of A-Fib/PAF?: No Review of Systems Constitutional: Denies: Chills, Fever, Malaise, Night Sweats, Weakness, Fatigue, Weight Loss, Lethargy, Other Eyes: Denies: Pain, Vision change, Conjunctivae inflammation, Eyelid inflammation, Redness, Other ENT: Denies: Head Aches, Ear Pain, Dysphagia, Sinus Congestion, Post Nasal Drip, Sore Throat, Epistaxis, Other Symptoms Skin: Denies: Rash, Lesions, Jaundice, Bruising, Itching, Dry, Breakdown, Nail Changes, Other Pulmonary: Denies: Dyspnea, Cough, Pleuritic Chest Pain, Other Symptoms Gastrointestinal: Reports: Nausea, Vomiting, Abdominal Pain Genitourinary: Denies: Dysuria, Frequency, Incontinence, Hematuria, Retention, Other Symptoms Hematologic: Denies: Bruising, Bleeding Excessively, Petecchia, Purpura, Enlarged Lymph Nodes, Other Hematologic Endocrine: Denies: Polydipsia, Polyphagia, Polyuria, Heat Intolerance, Cold Intolerance, Other Endocrine Sx Musculoskeletal: Denies: Neck Pain, Back Pain, Shoulder Pain, Arm Pain, Hand Pain, Leg Pain, Foot Pain, Joint Pain, Muscle Pain, Spasms, Other Symptoms Neurological: Denies: Weakness, Numbness, Incoordination, Change in speech, Confusion, Seizures, Other Symptoms Psych: Denies: Mood Normal, Anxiety, Depression, Memory Issues, Thoughts of Self Harm, Anger, Thoughts of Harming Other, Other Psych Physical Examination General Exam: Positive: Alert, Cooperative Eye Exam: Positive: PERRLA, Conjunctiva & lids normal ENT Exam: Positive: Atraumatic, Mucous membr. moist/pink Neck Exam: Positive: Supple Chest Exam: Positive: Clear to auscultation, Normal air movement Heart Exam: Positive: Rate Normal, Normal S1, Normal S2 Abdomen Exam: Positive: Normal bowel sounds, Tenderness (epigastric area, and both sides of her of her upper abdomen) Skin Exam: Positive: Nl turgor and temperature Neuro Exam: Positive: Normal Gait, Normal Speech, Cranial Nerves 3-12 NL Psych Exam: Positive: Mental status NL, Mood NL Vital Signs Vital Signs Date Time Temp Pulse Resp B/P (MAP) Pulse Ox O2 Delivery O2 Flow Rate FiO2 12/12/18 19:41 18 12/12/18 19:27 99 12/12/18 18:24 Room Air 12/12/18 14:15 12/12/18 13:57 97.0 114 Laboratory Data Labs 24H Laboratory Tests 2 12/12/18 15:45: Immature Granulocyte % (Auto) 0.3, White Blood Count 4.0, Red Blood Count 4.08, Hemoglobin 10.8L, Hematocrit 35.6L, Mean Corpuscular Volume 87.3, Mean Corpuscular Hemoglobin 26.5L, Mean Corpuscular Hemoglobin Concent 30.3L, Red Cell Distribution Width 18.6H, Platelet Count 149L, Neutrophils (%) (Auto) 79.1H, Lymphocytes (%) (Auto) 7.8L, Monocytes (%) (Auto) 11.3H, Eosinophils (%) (Auto) 0.5, Basophils (%) (Auto) 1.0, Neutrophils # (Auto) 3.2, Lymphocytes # (Auto) 0.3L, Monocytes # (Auto) 0.5, Eosinophils # (Auto) 0.0, Basophils # (Auto) 0.0, Nucleated Red Blood Cells % (auto) 0.0, Prothrombin Time 23.9H, Prothromb Time International Ratio 2.16, Activated Partial Thromboplast Time 4 5.5H, Lactic Acid Level 1.2, Aspartate Amino Transf (AST/SGOT) 300H, Alanine Aminotransferase (ALT/SGPT) 197H, Alkaline Phosphatase 435H, Total Bilirubin 5.3#H, Direct Bilirubin 4.3H, Total Creatine Kinase 26, Creatine Kinase MB < 1.0, Creatine Kinase MB Relative Index 3.85, Troponin I 0.04, Total Protein 5.9L, Albumin 2.5L, Albumin/Globulin Ratio 0.74L, Lipase 464H 12/12/18 16:08: POC Glucose (Misc Panel) 96, POC Sodium (Misc Panel) 140, POC Potassium (Misc Panel) 3.7, POC Chloride (Misc Panel) 106, POC Total CO2 (Misc Panel) 23.0, POC Blood Urea Nitrogen (Misc Panel 5L, POC Ionized Calcium (Misc Panel) 4.5, POC Creatinine (Misc Panel) 0.6, POC Hematocrit (Misc Panel) 34.0L CBC/BMP Laboratory Tests 12/12/18 15:45 Red Blood Count 4.08, Mean Corpuscular Volume 87.3, Mean Corpuscular Hemoglobin 26.5 L, Mean Corpuscular Hemoglobin Concent 30.3 L, Red Cell Distribution Width 18.6 H, Neutrophils (%) (Auto) 79.1 H, Lymphocytes (%) (Auto) 7.8 L, Monocytes (%) (Auto) 11.3 H, Eosinophils (%) (Auto) 0.5, Basophils (%) (Auto) 1.0, Neutrophils # (Auto) 3.2, Lymphocytes # (Auto) 0.3 L, Monocytes # (Auto) 0.5, Eosinophils # (Auto) 0.0, Basophils # (Auto) 0.0 Problems (1) Biliary obstruction Status: Acute Problem Text: Patient with a history of prostatic carcinoma with liver metastases presented with possible biliary obstruction Patient was seen by Dr. Ubaldo Ibarra and biliary stent placement as a scheduled for tomorrow Patient was also seen by oncology media production manager, but official notes from both oncology and GI are not available in the EMR. I was informed by the ED, PA regarding the consultations. Patient is nothing by mouth except ice chips Patient did receive 1 dose of Cipro before the procedure Will start pain management with morphine sulfate 4 mg IV every 4 hours when necessary Zofran 4 mg IV every 4 hours when necessary for nausea, vomiting Hold all by mouth meds including anticoagulation meds , Xarelto Patient is clinically stable and cleared for the procedure in a.m. Will sign out to primary team in the morning A.m. level work has been requested Due to prophylaxis not needed as patient is already on Xarelto Plan / VTE VTE Prophylaxis Ordered?: Yes MILTON WHITE MD Dec 12, 2018 20:39
[2018-12-12] MEDS: ONDANSETRON 4MG/2ML VIAL (J2405) IV PRN (21:13)
[2018-12-12] MEDS: NS 1,000 ML IV SCH (21:13)
[2018-12-12] MEDS: MORPHINE 4 MG/ML 1ML VIAL/SYRINGE (J2270) IV PRN (21:14)
[2018-12-13] MEDS: ONDANSETRON 4MG/2ML VIAL (J2405) IV PRN ×2 (02:08→06:43)
[2018-12-13] MEDS: MORPHINE 4 MG/ML 1ML VIAL/SYRINGE (J2270) IV PRN ×5 (02:09→21:12)
[2018-12-13 06:37] LABS: HEMATOCRIT 34.9 % (36.0-47.0); HEMOGLOBIN 10.4 g/dl (12.0-15.5); MEAN CORPUSCULAR HEMOGLOBIN 26.5 pg (27.0-33.0); MEAN CORPUSCULAR HGB CONC 29.8 g/dl (32.0-36.5); PLATELET COUNT, AUTOMATED 164 10^3/uL (150-450); RED BLOOD COUNT 3.92 10^6/uL (4.00-5.40); WHITE BLOOD COUNT 4.1 10^3/uL (4.0-10.0)
[2018-12-13] MEDS: NS 1,000 ML IV SCH ×2 (07:00→16:56)
[2018-12-13 07:03] LABS: ALBUMIN 2.2 GM/DL (3.2-5.2); ALT/SGPT 165 U/L (12-78); BILIRUBIN,TOTAL 5.4 MG/DL (0.2-1.0); BLOOD UREA NITROGEN 6 MG/DL (7-18); CALCIUM LEVEL 8.1 MG/DL (8.5-10.1); CARBON DIOXIDE LEVEL 24 MEQ/L (21-32); CHLORIDE LEVEL 110 MEQ/L (98-107); CREATININE FOR GFR 0.63 MG/DL (0.55-1.30); GLOMERULAR FILTRATION RATE > 60.0 (>51); GLUCOSE, FASTING 93 MG/DL (70-100); POTASSIUM SERUM 3.6 MEQ/L (3.5-5.1); SODIUM LEVEL 140 MEQ/L (136-145); TOTAL PROTEIN 5.9 GM/DL (6.4-8.2)
--- NOTE | 2018-12-13 08:58 | IPNPDOC ---
Subjective Date Seen The patient was seen on 12/13/18. Subjective Chief Complaint/HPI Morphine controlling pain. Less n/v this am Constitutional: Denies: Chills, Fever Pulmonary: Denies: Dyspnea, Cough Cardiovascular: Denies: Chest Pain, Palpitations Gastrointestinal: Reports: Abdominal Pain; Denies: Nausea, Vomiting, Diarrhea, Constipation Objective Physical Examination General Exam: Positive: Alert, Cooperative, No Acute Distress Chest Exam: Positive: Clear to auscultation, Normal air movement Heart Exam: Positive: Rate Normal, Normal S1, Normal S2 Abdomen Exam: Positive: Normal bowel sounds, Tenderness (epigastric area, and both sides of her of her upper abdomen) Skin Exam: Positive: Nl turgor and temperature Neuro Exam: Positive: Normal Speech Psych Exam: Positive: Mental status NL, Mood NL Assessment /Plan Problems (1) Biliary obstruction Status: Acute Problem Text: Patient with a history of pancreatic carcinoma with liver metastases presented with possible biliary obstruction Patient was seen by Dr. Curry and biliary stent placement scheduled for today Patient was also seen by oncology last ironer, but official notes from both oncology and GI are not available in the EMR. I was informed by the ED, PA regarding the consultations. Patient is nothing by mouth except ice chips Patient did receive 1 dose of Cipro before the procedure Will continue pain management with morphine sulfate 4 mg IV every 4 hours when necessary Zofran 4 mg IV every 4 hours when necessary for nausea, vomiting Hold all by mouth meds including anticoagulation meds , Xarelto Patient is clinically stable and cleared for the procedure in a.m. (2) Pancreatic cancer metastasized to liver Status: Chronic Problem Text: per Oncology (3) CVA (cerebral vascular accident) Status: Chronic Problem Text: On Xeralto - on hold for stent today (4) Type 2 diabetes mellitus Status: Chronic Plan/VTE VTE Prophylaxis Ordered?: Yes (Xeralto on hold currently) VS, I&O, 24H, Fishbone Vital Signs/I&O Vital Signs Date Time Temp Pulse Resp B/P (MAP) Pulse Ox O2 Delivery O2 Flow Rate FiO2 12/13/18 07:08 16 12/13/18 07:02 89 114/66 (82) 91 Room Air 12/13/18 06:41 96.6 Laboratory Data 24H LABS Laboratory Tests 2 12/12/18 15:45: Immature Granulocyte % (Auto) 0.3, White Blood Count 4.0, Red Blood Count 4.08, Hemoglobin 10.8L, Hematocrit 35.6L, Mean Corpuscular Volume 87.3, Mean Corpuscular Hemoglobin 26.5L, Mean Corpuscular Hemoglobin Concent 30.3L, Red Cell Distribution Width 18.6H, Platelet Count 149L, Neutrophils (%) (Auto) 79. 1H, Lymphocytes (%) (Auto) 7.8L, Monocytes (%) (Auto) 11.3H, Eosinophils (%) (Auto) 0.5, Basophils (%) (Auto) 1.0, Neutrophils # (Auto) 3.2, Lymphocytes # (Auto) 0.3L, Monocytes # (Auto) 0.5, Eosinophils # (Auto) 0.0, Basophils # (Auto) 0.0, Nucleated Red Blood Cells % (auto) 0.0, Prothrombin Time 23.9H, Prothromb Time International Ratio 2.16, Activated Partial Thromboplast Time 45.5H, Lactic Acid Level 1.2, Aspartate Amino Transf (AST/SGOT) 300H, Alanine Aminotransferase (ALT/SGPT) 197H, Alkaline Phosphatase 435H, Total Bilirubin 5.3#H, Direct Bilirubin 4.3H, Total Creatine Kinase 26, Creatine Kinase MB < 1.0, Creatine Kinase MB Relative Index 3.85, Troponin I 0.04, Total Protein 5.9L, Albumin 2.5L, Albumin/Globulin Ratio 0.74L, Lipase 464H 12/12/18 16:08: POC Glucose (Misc Panel) 96, POC Sodium (Misc Panel) 140, POC Potassium (Misc Panel) 3.7, POC Chloride (Misc Panel) 106, POC Total CO2 (Misc Panel) 23.0, POC Blood Urea Nitrogen (Misc Panel 5L, POC Ionized Calcium (Misc Panel) 4.5, POC Creatinine (Misc Panel) 0.6, POC Hematocrit (Misc Panel) 34.0L 12/13/18 06:23: Nucleated Red Blood Cells % (auto) 0.0, Aspartate Amino Transf (AST/SGOT) 240H, Alanine Aminotransferase (ALT/SGPT) 165H, Alkaline Phosphatase 380H, Total Bilirubin 5.4H, Total Protein 5.9L, Albumin 2.2L, Albumin/Globulin Ratio 0.59L, Anion Gap 6L, Glomerular Filtration Rate > 60.0, Blood Urea Nitrogen 6L, Creatinine 0.63, Sodium Level 140, Potassium Level 3.6, Chloride Level 110H, Carbon Dioxide Level 24, Calcium Level 8.1L CBC/BMP Laboratory Tests 12/12/18 15:45 Red Blood Count 4.08, Mean Corpuscular Volume 87.3, Mean Corpuscular Hemoglobin 26.5 L, Mean Corpuscular Hemoglobin Concent 30.3 L, Red Cell Distribution Width 18.6 H, Neutrophils (%) (Auto) 79.1 H, Lymphocytes (%) (Auto) 7.8 L, Monocytes (%) (Auto) 11.3 H, Eosinophils (%) (Auto) 0.5, Basophils (%) (Auto) 1.0, Neutrophils # (Auto) 3.2, Lymphocytes # (Auto) 0.3 L, Monocytes # (Auto) 0.5, Eosinophils # (Auto) 0.0, Basophils # (Auto) 0.0 12/13/18 06:23 Red Blood Count 3.92 L, Mean Corpuscular Volume 89.0, Mean Corpuscular Hemoglobin 26.5 L, Mean Corpuscular Hemoglobin Concent 29.8 L, Red Cell Distribution Width 18.9 H, Calcium Level 8.1 L, Aspartate Amino Transf (AST/SGOT) 240 H, Alanine Aminotransferase (ALT/SGPT) 165 H, Alkaline Phosphatase 380 H, Total Bilirubin 5.4 H, Total Protein 5.9 L, Albumin 2.2 L BEATA MCDERMOTT PA-C Dec 13, 2018 08:57
[2018-12-13 11:30] VITALS: BP 143/81
[2018-12-13 12:20] VITALS: BP 135/73
[2018-12-13 14:00] VITALS: BP 111/61
[2018-12-13] MEDS: cefTRIAXone SOD 2 GM in D5W MINI-BAG PLUS 50 ML IV SCH (16:56)
[2018-12-13 22:00] VITALS: BP 124/66
[2018-12-14] VITALS (7 sets, daily range): BP systolic 107–137; BP diastolic 44–90
[2018-12-14] MEDS: MORPHINE 4 MG/ML 1ML VIAL/SYRINGE (J2270) IV PRN ×5 (01:28→19:52)
[2018-12-14] MEDS: ONDANSETRON 4MG/2ML VIAL (J2405) IV PRN ×4 (01:28→19:51)
[2018-12-14] MEDS: NS 1,000 ML IV SCH ×3 (02:27→22:30)
[2018-12-14 05:43] LABS: HEMATOCRIT 32.5 % (36.0-47.0); HEMOGLOBIN 9.8 g/dl (12.0-15.5); MEAN CORPUSCULAR HEMOGLOBIN 25.9 pg (27.0-33.0); MEAN CORPUSCULAR HGB CONC 30.2 g/dl (32.0-36.5); MEAN CORPUSCULAR VOLUME 85.8 fl (80.0-96.0); PLATELET COUNT, AUTOMATED 149 10^3/uL (150-450); RED BLOOD COUNT 3.79 10^6/uL (4.00-5.40)
[2018-12-14 06:08] LABS: ALBUMIN 2.1 GM/DL (3.2-5.2); ALT/SGPT 135 U/L (12-78); BILIRUBIN,TOTAL 5.8 MG/DL (0.2-1.0); BLOOD UREA NITROGEN 6 MG/DL (7-18); CARBON DIOXIDE LEVEL 24 MEQ/L (21-32); CHLORIDE LEVEL 111 MEQ/L (98-107); CREATININE FOR GFR 0.54 MG/DL (0.55-1.30); GLOMERULAR FILTRATION RATE > 60.0 (>51); GLUCOSE, FASTING 87 MG/DL (70-100); POTASSIUM SERUM 3.7 MEQ/L (3.5-5.1); SODIUM LEVEL 141 MEQ/L (136-145); TOTAL PROTEIN 5.6 GM/DL (6.4-8.2)
--- NOTE | 2018-12-14 07:56 | IPNPDOC ---
Subjective Date Seen The patient was seen on 12/14/18. Subjective Chief Complaint/HPI Still has pain. no vomiting Constitutional: Denies: Chills, Fever Pulmonary: Denies: Dyspnea, Cough Cardiovascular: Denies: Chest Pain, Palpitations Gastrointestinal: Reports: Abdominal Pain; Denies: Nausea, Vomiting, Diarrhea, Constipation Objective Physical Examination General Exam: Positive: Alert, Cooperative, No Acute Distress Chest Exam: Positive: Clear to auscultation, Normal air movement Heart Exam: Positive: Rate Normal, Normal S1, Normal S2 Abdomen Exam: Positive: Normal bowel sounds, Tenderness (epigastric area, and both sides of her of her upper abdomen) Skin Exam: Positive: Nl turgor and temperature Neuro Exam: Positive: Normal Speech Psych Exam: Positive: Mental status NL, Mood NL Assessment /Plan Problems (1) Biliary obstruction Status: Acute Problem Text: 12/14 - Unfortunately they apparently could not find room on schedule to perform stent yesterday which is very unfortunate b/c she continues to have significant pain. She is an add on today - Hopefully she will go early so perhaps her pain will be alleviated In the meantime, cont Morphine prn and Rocephin Also Xarelto on hold so would ideally like procedure done soon so we can restart it. Patient with a history of pancreatic carcinoma with liver metastases presented with possible biliary obstruction Patient was seen by Dr. Curry and biliary stent placement scheduled for today Patient was also seen by oncology regional psychiatric director, but official notes from both oncology and GI are not available in the EMR. I was informed by the ED, PA regarding the consultations. Patient is nothing by mouth except ice chips Patient did receive 1 dose of Cipro before the procedure Will continue pain management with morphine sulfate 4 mg IV every 4 hours when necessary Zofran 4 mg IV every 4 hours when necessary for nausea, vomiting Hold all by mouth meds including anticoagulation meds , Xarelto Patient is clinically stable and cleared for the procedure in a.m. (2) Pancreatic cancer metastasized to liver Status: Chronic Problem Text: per Oncology (3) CVA (cerebral vascular accident) Status: Chronic Problem Text: On Xeralto - on hold for stent today (4) Type 2 diabetes mellitus Status: Chronic Plan/VTE VTE Prophylaxis Ordered?: Yes (Xeralto on hold currently) VS, I&O, 24H, Fishbone Vital Signs/I&O Vital Signs Date Time Temp Pulse Resp B/P (MAP) Pulse Ox O2 Delivery O2 Flow Rate FiO2 12/14/18 06:00 97.9 90 16 125/66 (85) 88 12/13/18 14:00 0.0 12/13/18 07:02 Room Air I&O- Last 24 Hours up to 6 AM 12/14/18 06:00 Intake Total 2323 ml Output Total 0 ml Balance 2323 ml Laboratory Data 24H LABS Laboratory Tests 2 12/14/18 05:34: Nucleated Red Blood Cells % (auto) 0.0, Anion Gap 6L, Glomerular Filtration Rate > 60.0, Blood Urea Nitrogen 6L, Creatinine 0.54L, Sodium Level 141, Potassium Level 3.7, Chloride Level 111H, Carbon Dioxide Level 24, Calcium Level 8.0L, Aspartate Amino Transf (AST/SGOT) 190H, Alanine Aminotransferase (ALT/SGPT) 135H, Alkaline Phosphatase 365H, Total Bilirubin 5.8H, Total Protein 5.6L, Albumin 2.1L, Albumin/Globulin Ratio 0.60L CBC/BMP Laboratory Tests 12/14/18 05:34 Red Blood Count 3.79 L, Mean Corpuscular Volume 85.8, Mean Corpuscular Hemoglobin 25.9 L, Mean Corpuscular Hemoglobin Concent 30.2 L, Red Cell Distribution Width 18.7 H, Calcium Level 8.0 L, Aspartate Amino Transf (AST/SGOT) 190 H, Alanine Aminotransferase (ALT/SGPT) 135 H, Alkaline Phosphat ase 365 H, Total Bilirubin 5.8 H, Total Protein 5.6 L, Albumin 2.1 L BEATA MCDERMOTT PA-C Dec 14, 2018 07:56
[2018-12-14 11:12] LABS: INR 1.27; PROTHROMBIN TIME 15.6 SECONDS (11.8-14.0)
[2018-12-14] MEDS ORDERED: ISOVUE-300 61% 50ML VIAL (Q9967) As Ordered ONE (14:39)
[2018-12-14 14:46] LABS: SPEC. GRAVITY BODY FLUIDS 1.005 (NOT ESTABLISHED)
[2018-12-14 14:54] LABS: APPEARANCE, BODY FLUID HAZY (CLEAR); PERITONEAL FL COLOR YELLOW (COLORLESS); SOURCE, BODY FLUID PERITONEAL
[2018-12-14] MEDS ORDERED: dexameTHASONE 4 MG/ML 1ML VIAL (J1100) As Ordered ONE (15:01)
[2018-12-14] MEDS ORDERED: LIDOCAINE 2% INJ 100 MG/5 ML SDV (FOR ANES.) As Ordered ONE (15:01)
[2018-12-14] MEDS ORDERED: ONDANSETRON 4MG/2ML VIAL (J2405) As Ordered ONE ×2 (15:01→16:26)
[2018-12-14] MEDS ORDERED: SUGAMMADEX SODIUM 500 MG/5 ML VIAL (BRIDION) As Ordered ONE (15:01)
[2018-12-14] MEDS ORDERED: PROPOFOL 200 MG/20 ML VIAL As Ordered ONE (15:01)
[2018-12-14] MEDS ORDERED: ROCURONIUM BROMIDE 50 MG/5 ML VIAL As Ordered ONE ×2 (15:01→15:31)
[2018-12-14] MEDS ORDERED: MIDAZOLAM INJ 2 MG/2 ML VIAL (J2250) As Ordered ONE (15:01)
[2018-12-14] MEDS ORDERED: METOCLOPRAMIDE INJ 10MG/2ML VIAL (J2765) As Ordered ONE (15:01)
[2018-12-14] MEDS ORDERED: fentaNYL 100 MCG/2 ML INJECTION (J3010) As Ordered ONE ×3 (15:01→16:26)
[2018-12-14 15:06] LABS: SOURCE, BODY FLUID ALBUMIN PERITONEAL; SOURCE, BODY FLUID GLUCOSE PERITONEAL; SOURCE, BODY FLUID TOT PROTEIN PERITONEAL; TOTAL PROTEIN, BODY FLUID 1.6 G/DL (NOT ESTABLISHED)
[2018-12-14] MEDS ORDERED: PHENYLephrine HCL 500 MCG/5 ML (100MCG/ML) SYRINGE (J2370) As Ordered ONE (15:06)
[2018-12-14] MEDS ORDERED: LR 1,000 ML IV SCH (16:30)
[2018-12-14] MEDS: fentaNYL 100 MCG/2 ML INJECTION (J3010) IV PRN ×4 (16:30→16:45)
--- NOTE | 2018-12-14 16:30 | REP ---
C-ARM VIEWS ABDOMEN: Five C-ARM views of the abdomen are performed. Endoscope is visualized. 7 seconds of fluoroscopy time was utilized. Electronically Signed by Sung Wang MD 12/16/2018 07:29 P
--- NOTE | 2018-12-14 16:39 | ROOR ---
Patient Name: Jalyn Cherry Procedure Date: 12/14/2018 2:33 PM Date of : 1960 Age: 58 Room: Main OR Gender: Female Note Status: Finalized Procedure: ERCP Indications: Jaundice, Malignant tumor of the head of pancreas Providers: Dom Rachel MD Referring MD: Santy Sam MD Requesting Provider: Medicines: Monitored Anesthesia Care Complications: No immediate complications. Procedure: Pre-Anesthesia Assessment: - Prior to the procedure, a History and Physical was performed, and patient medications and allergies were reviewed. The patient is competent. The risks and benefits of the procedure and the sedation options and risks were discussed with the patient. All questions were answered and informed consent was obtained. Patient identification and proposed procedure were verified by the physician, the nurse and the anesthesiologist in the procedure room. Mental Status Examination: alert and oriented. Airway Examination: normal oropharyngeal airway and neck mobility. Respiratory Examination: clear to auscultation. CV Examination: normal. Prophylactic Antibiotics: The patient does not require prophylactic antibiotics. Prior Anticoagulants: The patient has taken no previous anticoagulant or antiplatelet agents. ASA Grade Assessment: III - A patient with severe systemic disease. After reviewing the risks and benefits, the patient was deemed in satisfactory condition to undergo the procedure. The anesthesia plan was to use general anesthesia. Immediately prior to administration of medications, the patient was re-assessed for adequacy to receive sedatives. The heart rate, respiratory rate, oxygen saturations, blood pressure, adequacy of pulmonary ventilation, and response to care were monitored throughout the procedure. The physical status of the patient was re-assessed after the procedure. The Duodenoscope was introduced through the mouth, with the intention of advancing to the bile ducts. The scope was advanced to the duodenum before the procedure was aborted. Medications were given. The Endoscope was introduced through the mouth, and advanced to the duodenum and used to locate the major papilla. The ERCP was accomplished without difficulty. The patient tolerated the procedure well. The ERCP was aborted due to a partially obstructing mass. Withdrawing the scope and replacing with the adult endoscope did not allow for the successful completion of the procedure. Findings: The distribution associate film was normal. A standard esophagogastroduodenoscopy scope was used for the examination of the upper gastrointestinal tract. The scope was passed under direct vision through the upper GI tract. An acquired extrinsic moderate stenosis was found in the second portion of the duodenum and was traversed. Diffuse hemorrhagic mucosa without active bleeding and with stigmata of bleeding was found in the second portion of the duodenum. The esophagus was successfully intubated under direct vision. The scope was advanced to a normal major papilla in the descending duodenum without detailed examination of the pharynx, larynx and associated structures, and upper GI tract. The upper GI tract was grossly normal. Impression: - The ERCP was aborted due to a partially obstructing mass. - Acquired duodenal stenosis. - Hemorrhagic duodenopathy. Recommendation: - Avoid aspirin and nonsteroidal anti-inflammatory medicines. - The patient will be observed post-procedure, until all discharge criteria are met. - Patient has a contact number available for emergencies. The signs and symptoms of potential delayed complications were discussed with the patient. Return to normal activities tomorrow. Written discharge instructions were provided to the patient. - [facility]. - Refer to an interventional radiologist for possible IR drain. Spoke with IR and patient will be seen on Monday. (Please place referral to IR in [facility] - Dr. Jossy Blackmon at the time of discharge). - Advance diet as tolerated. 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 - Return to primary care physician. - Telephone GI clinic if symptomatic in 2 weeks. Dom Rachel MD Dom Rachel MD 12/14/2018 4:38:31 PM Electronically signed by Dom Rachel MD Number of Addenda: 0 Note Initiated On: 12/14/2018 2:33 PM Estimated Blood Loss: Estimated blood loss: none.
[2018-12-14] MEDS ORDERED: HYDROMORPHONE HCL 0.5 MG/ 0.5 ML SYRINGE (J1170 PER 1) As Ordered ONE ×2 (16:50→16:51)
[2018-12-14] MEDS: HYDROMORPHONE HCL 0.5 MG/ 0.5 ML SYRINGE (J1170 PER 1) IV PRN ×5 (16:50→17:10)
[2018-12-14] MEDS ORDERED: ONDANSETRON 4MG/2ML VIAL (J2405) IV PRN (17:00)
[2018-12-14] MEDS: cefTRIAXone SOD 2 GM in D5W MINI-BAG PLUS 50 ML IV SCH (18:02)
[2018-12-15] VITALS (8 sets, daily range): BP systolic 127–136; BP diastolic 61–74
[2018-12-15] MEDS: ONDANSETRON 4MG/2ML VIAL (J2405) IV PRN ×5 (05:00→22:53)
[2018-12-15] MEDS: MORPHINE 4 MG/ML 1ML VIAL/SYRINGE (J2270) IV PRN ×8 (05:02→22:54)
[2018-12-15 06:11] LABS: HEMATOCRIT 34.7 % (36.0-47.0); HEMOGLOBIN 10.5 g/dl (12.0-15.5); MEAN CORPUSCULAR HEMOGLOBIN 26.5 pg (27.0-33.0); MEAN CORPUSCULAR HGB CONC 30.3 g/dl (32.0-36.5); MEAN CORPUSCULAR VOLUME 87.6 fl (80.0-96.0); PLATELET COUNT, AUTOMATED 147 10^3/uL (150-450); RED BLOOD COUNT 3.96 10^6/uL (4.00-5.40); WHITE BLOOD COUNT 3.8 10^3/uL (4.0-10.0)
[2018-12-15 06:31] LABS: ALBUMIN 2.3 GM/DL (3.2-5.2); ALT/SGPT 128 U/L (12-78); BLOOD UREA NITROGEN 7 MG/DL (7-18); CALCIUM LEVEL 8.3 MG/DL (8.5-10.1); CARBON DIOXIDE LEVEL 27 MEQ/L (21-32); CHLORIDE LEVEL 108 MEQ/L (98-107); GLOMERULAR FILTRATION RATE > 60.0 (>51); GLUCOSE, FASTING 129 MG/DL (70-100); POTASSIUM SERUM 3.6 MEQ/L (3.5-5.1); SODIUM LEVEL 142 MEQ/L (136-145)
--- NOTE | 2018-12-15 08:26 | IPN ---
DATE OF SERVICE: 12/15/2018 Jalyn had esophagogastroduodenoscopy (EGD) yesterday. Had attempted endoscopic retrograde cholangiopancreatography (ERCP) yesterday. Was aborted study due to partially obstructing mass in the second part of the duodenum. could not be identified. She also underwent therapeutic and diagnostic paracentesis yesterday. I do not have the report dictated yet. I am not sure what volume was removed. She already feels she has reaccumulating ascites, and abdominal pain that was better yesterday seems to be returning. PHYSICAL EXAMINATION: 127/63, pulse of 85, respiratory rate 18, 90% oxygen (O2) saturation. General appearance: She is lying in bed comfortably. Lungs clear. Heart: Regular rate and rhythm. Abdomen: Soft, nondistended. Ascites palpable. She looks jaundiced. IMPRESSION: 1. Biliary obstruction secondary to pancreatic mass, per Dr. Rachel. He has already spoken to interventional radiology, Dr. Cazares, who will see her on Monday for a drain in interventional. We discussed the case yesterday after the ERCP. 2. Ascites. She will probably need another therapeutic paracentesis on Monday. Hopefully, she can last until then as far as her symptoms. It would be hard to arrange this on a weekend. 3. Pancreatic cancer, metastatic to liver, per oncology. 4. History of stroke. Hold the Xarelto pending her procedure. 5. Diabetes. Blood sugars are within normal range.
[2018-12-15] MEDS: cefTRIAXone SOD 2 GM in D5W MINI-BAG PLUS 50 ML IV SCH (16:36)
[2018-12-15] MEDS: CALCIUM CARBONATE 500 MG CHEW U/D PO PRN ×2 (16:36→20:57)
--- NOTE | 2018-12-15 18:32 | REP ---
Ultrasound-guided paracentesis The procedure was performed by STONE Uribe, under the direct supervision of Dr. Wang. The risks and benefits of the procedure were explained to the patient and informed consent was obtained both verbally and written. Directly prior to the start of the procedure, a formal timeout was completed in the procedure room. Under ultrasound guidance, the largest pocket of fluid in the left flank was localized and skin was marked. The skin was then prepped and draped in a sterile fashion. 7 ml of 1% lidocaine was used as a local anesthetic. Using ultrasound guidance, an 8-Chilean multi side-hole catheter was inserted using trocar technique. 4,550 mL of dark yellow colored fluid was withdrawn, 200 ml was sent to the laboratory for further analysis, and the rest was discarded. The patient tolerated the procedure well and there were no immediate complications. After the appropriate monitored convalescence the patient was discharged from the department. Reviewed by STONE Barnett 12/14/2018 01:37 P Electronically Signed by Sung Wang MD 12/15/2018 06:24 P
[2018-12-16] MEDS: MORPHINE 4 MG/ML 1ML VIAL/SYRINGE (J2270) IV PRN ×8 (00:55→23:00)
[2018-12-16] MEDS: CALCIUM CARBONATE 500 MG CHEW U/D PO PRN ×3 (00:57→19:58)
[2018-12-16] MEDS: ONDANSETRON 4MG/2ML VIAL (J2405) IV PRN ×5 (04:15→23:00)
[2018-12-16 06:00] VITALS: BP 129/57
[2018-12-16] MEDS: SODIUM CHLORIDE 0.9% INJ 10 ML SYR IV SCH ×2 (06:28→17:15)
[2018-12-16 06:44] VITALS: BP 129/57
[2018-12-16 07:29] LABS: HEMATOCRIT 34.7 % (36.0-47.0); HEMOGLOBIN 10.5 g/dl (12.0-15.5); MEAN CORPUSCULAR HEMOGLOBIN 25.7 pg (27.0-33.0); MEAN CORPUSCULAR HGB CONC 30.3 g/dl (32.0-36.5); PLATELET COUNT, AUTOMATED 163 10^3/uL (150-450); RED BLOOD COUNT 4.08 10^6/uL (4.00-5.40)
[2018-12-16 08:10] LABS: ALBUMIN 2.2 GM/DL (3.2-5.2); ALT/SGPT 135 U/L (12-78); BILIRUBIN,TOTAL 7.9 MG/DL (0.2-1.0); BLOOD UREA NITROGEN 9 MG/DL (7-18); CALCIUM LEVEL 8.5 MG/DL (8.5-10.1); CARBON DIOXIDE LEVEL 28 MEQ/L (21-32); CHLORIDE LEVEL 107 MEQ/L (98-107); CREATININE FOR GFR 0.69 MG/DL (0.55-1.30); GLOMERULAR FILTRATION RATE > 60.0 (>51); GLUCOSE, FASTING 98 MG/DL (70-100); POTASSIUM SERUM 3.6 MEQ/L (3.5-5.1); SODIUM LEVEL 142 MEQ/L (136-145); TOTAL PROTEIN 5.2 GM/DL (6.4-8.2)
--- NOTE | 2018-12-16 13:57 | IPN ---
DATE: 12/16/2018 Jalyn is having increasing ascites, been a little more short of breath today, a little more uncomfortable. PHYSICAL EXAMINATION: VITAL SIGNS: Stable. LUNGS: Clear. HEART: Regular rate and rhythm. ABDOMEN: Soft, distended with ascites. More prominent than yesterday. Trace peripheral edema. LABORATORIES: Complete blood count (CBC) unremarkable. Electrolytes unremarkable. Bilirubin stable at 7.9. IMPRESSION: 1. Biliary obstruction secondary to pancreatic mass. Dr. Montero will be doing an external drainage in interventional tomorrow. 2. Ascites. I put an order for therapeutic paracentesis tomorrow. 3. Pancreatic cancer metastatic to liver. Treatment per oncology. 4. History of stoke. Harris is on hold pending procedures. This can be restarted after.
[2018-12-16 14:00] VITALS: BP 117/74
[2018-12-16] MEDS: cefTRIAXone SOD 2 GM in D5W MINI-BAG PLUS 50 ML IV SCH (17:14)
[2018-12-16] MEDS ORDERED: MIRALAX *UNIT DOSE* 17GM PACKET PO PRN (19:30)
[2018-12-16] MEDS: PROMETHAZINE INJ 25 MG/ML VIAL (J2550) IV PRN (20:06)
[2018-12-16 23:16] VITALS: BP 115/76
[2018-12-17] MEDS: PROMETHAZINE INJ 25 MG/ML VIAL (J2550) IV PRN ×3 (02:41→21:25)
[2018-12-17] MEDS: MORPHINE 4 MG/ML 1ML VIAL/SYRINGE (J2270) IV PRN ×5 (02:41→19:40)
[2018-12-17] MEDS: ONDANSETRON 4MG/2ML VIAL (J2405) IV PRN ×3 (03:49→19:38)
[2018-12-17 05:46] VITALS: BP 122/76
[2018-12-17] MEDS: SODIUM CHLORIDE 0.9% INJ 10 ML SYR IV SCH ×2 (06:13→18:00)
[2018-12-17 06:18] LABS: HEMATOCRIT 39.4 % (36.0-47.0); HEMOGLOBIN 12.2 g/dl (12.0-15.5); MEAN CORPUSCULAR HEMOGLOBIN 26.1 pg (27.0-33.0); MEAN CORPUSCULAR VOLUME 84.2 fl (80.0-96.0); PLATELET COUNT, AUTOMATED 172 10^3/uL (150-450); RED BLOOD COUNT 4.68 10^6/uL (4.00-5.40); WHITE BLOOD COUNT 7.8 10^3/uL (4.0-10.0)
[2018-12-17 06:54] LABS: ALBUMIN 2.2 GM/DL (3.2-5.2); ALT/SGPT 126 U/L (12-78); BILIRUBIN,TOTAL 10.7 MG/DL (0.2-1.0); BLOOD UREA NITROGEN 9 MG/DL (7-18); CALCIUM LEVEL 8.9 MG/DL (8.5-10.1); CARBON DIOXIDE LEVEL 29 MEQ/L (21-32); CHLORIDE LEVEL 106 MEQ/L (98-107); GLOMERULAR FILTRATION RATE > 60.0 (>51); GLUCOSE, FASTING 121 MG/DL (70-100); POTASSIUM SERUM 3.6 MEQ/L (3.5-5.1); SODIUM LEVEL 141 MEQ/L (136-145)
[2018-12-17] MEDS ORDERED: LIDOCAINE 1% MDV 20ML VIAL As Ordered ONE (07:33)
[2018-12-17] MEDS ORDERED: ISOVUE-300 61% 50ML VIAL (Q9967) As Ordered ONE (07:33)
[2018-12-17] MEDS ORDERED: MIDAZOLAM INJ 2 MG/2 ML VIAL (J2250) As Ordered ONE ×2 (14:41→16:20)
[2018-12-17] MEDS ORDERED: diphenhydrAMINE INJ 50MG/ML VIAL (J1200) As Ordered ONE (14:41)
[2018-12-17] MEDS ORDERED: fentaNYL 100 MCG/2 ML INJECTION (J3010) As Ordered ONE ×2 (14:41→16:19)
[2018-12-17] MEDS ORDERED: cefTRIAXone SOD 1 GM VIAL (J0696) As Ordered ONE (14:41)
--- NOTE | 2018-12-17 14:41 | IPNPDOC ---
Text Note Date of Service The patient was seen on 12/17/18. NOTE Pancreatic mass. Biliary obstruction. Cholestasis and obstructive jaundice. F jillian ERCP and biliary stenting. ASA II Malampatti II KIERRA: no problems with sedation: NO Plan PTC and biliary tube placement with moderate sedation VS,Fishbone, I+O VS, Fishbone, I+O Laboratory Tests 12/17/18 06:03 Red Blood Count 4.68, Mean Corpuscular Volume 84.2, Mean Corpuscular Hemoglobin 26.1 L, Mean Corpuscular Hemoglobin Concent 31.0 L, Red Cell Distribution Width 19.9 H, Calcium Level 8.9, Aspartate Amino Transf (AST/SGOT) 203 H, Alanine Aminotransferase (ALT/SGPT) 126 H, Alkaline Phosphatase 447 H, Total Bilirubin 10.7 H, Total Protein 6.0 L, Albumin 2.2 L Vital Signs Date Time Temp Pulse Resp B/P (MAP) Pulse Ox O2 Delivery O2 Flow Rate FiO2 12/17/18 14:16 97.8 106 18 12/17/18 05:46 122/76 (91) 89 12/14/18 17:20 2 12/13/18 07:02 Room Air I&O- Last 24 Hours up to 6 AM 12/17/18 06:00 Intake Total 1140 ml Output Total 500 ml Balance 640 ml TASHA ORNELAS MD Dec 17, 2018 14:41
[2018-12-17] MEDS: cefTRIAXone SOD 2 GM in D5W MINI-BAG PLUS 50 ML IV SCH (17:00)
--- NOTE | 2018-12-17 17:32 | POST-OPPD ---
Postoperative Procedure Note Date Of Procedure: Dec 17, 2018 Time Of Procedure: 17:29 PREOPERATIVE DIAGNOSIS: pancreatic mass. biliary obstruction. failed ERCP POSTOPERATIVE DIAGNOSIS: pancreatic mass. biliary obstruction. failed ERCP FINDINGS: intra and extrahepatic biliary dilation. Obstruction distal CBD. PROCEDURE: percutaneous transhepatic cholangiogram, cannulation of obstruction and internal/external drain placement. SURGEON: Debora ANESTHESIA: moderate sedation ESTIMATED BLOOD LOSS: < 5 ml DRAINS: 10 F internal external biliary drain. COMPLICATIONS: none POSTOPERATIVE CONDITION: stable TASHA ORNELAS MD Dec 17, 2018 17:32
--- NOTE | 2018-12-17 17:44 | IPNPDOC ---
Subjective Date Seen The patient was seen on 12/17/18. Subjective Chief Complaint/HPI relieved dyspnea/ abdominal pain sp para Constitutional: Denies: Chills Eyes: Denies: Pain, Vision change ENT: Denies: Head Aches Skin: Denies: Rash Pulmonary: Denies: Dyspnea, Cough Cardiovascular: Denies: Chest Pain Gastrointestinal: Denies: Nausea Genitourinary: Denies: Dysuria Objective Physical Examination General Exam: Positive: Alert, Cooperative, No Acute Distress Chest Exam: Positive: Clear to auscultation, Normal air movement Heart Exam: Positive: Rate Normal, Normal S1, Normal S2 Abdomen Exam: Positive: Normal bowel sounds, Tenderness (epigastric area, and both sides of her of her upper abdomen) Skin Exam: Positive: Nl turgor and temperature Neuro Exam: Positive: Normal Speech Psych Exam: Positive: Mental status NL, Mood NL Assessment /Plan Problems (1) Biliary obstruction Status: Acute Problem Text: ceftriaxone px for cholangitis 12/17 sp PTC c drainage of 3150 cc fluid 12/14 unsuccessful ERCP 2 obstructing pancreatic head mass (2) Pancreatic cancer metastasized to liver Status: Chronic Problem Text: per Oncology on [facility] per Daniel (3) CVA (cerebral vascular accident) Status: Chronic Problem Text: rivarox on hold 2 para (4) Type 2 diabetes mellitus Status: Chronic Problem Text: diet controlled Plan/VTE VTE Prophylaxis Ordered?: Yes (Xeralto on hold currently) VS, I&O, 24H, Fishbone Vital Signs/I&O Vital Signs Date Time Temp Pulse Resp B/P (MAP) Pulse Ox O2 Delivery O2 Flow Rate FiO2 12/17/18 17:24 92 16 12/17/18 15:14 99 2 12/17/18 14:16 97.8 12/17/18 05:46 122/76 (91) 12/13/18 07:02 Room Air I&O- Last 24 Hours up to 6 AM 12/17/18 06:00 Intake Total 1140 ml Output Total 500 ml Balance 640 ml Laboratory Data 24H LABS Laboratory Tests 2 12/17/18 06:03: Nucleated Red Blood Cells % (auto) 0.0, Anion Gap 6L, Glomerular Filtration Rate > 60.0, Blood Urea Nitrogen 9, Creatinine 0.70, Sodium Level 141, Potassium Lev el 3.6, Chloride Level 106, Carbon Dioxide Level 29, Calcium Level 8.9, Aspartate Amino Transf (AST/SGOT) 203H, Alanine Aminotransferase (ALT/SGPT) 126H, Alkaline Phosphatase 447H, Total Bilirubin 10.7H, Total Protein 6.0L, Albumin 2.2L, Albumin/Globulin Ratio 0.58L CBC/BMP Laboratory Tests 12/17/18 06:03 Red Blood Count 4.68, Mean Corpuscular Volume 84.2, Mean Corpuscular Hemoglobin 26.1 L, Mean Corpuscular Hemoglobin Concent 31.0 L, Red Cell Distribution Width 19.9 H, Calcium Level 8.9, Aspartate Amino Transf (AST/SGOT) 203 H, Alanine Aminotransferase (ALT/SGPT) 126 H, Alkaline Phosphatase 447 H, Total Bilirubin 10.7 H, Total Protein 6.0 L, Albumin 2.2 L Microbiology Microbiology 12/14/18 Acid Fast Stain, Received Pending 12/14/18 Mycobacterial Culture, Received Pending 12/14/18 Fungal Smear, Received Pending 12/14/18 Fungal Culture, Received Pending 12/14/18 Anaerobic Culture - Final, Complete 12/14/18 Gram Stain - Final, Complete 12/14/18 Body Fluid Culture - Final, Complete Edwar Yoo M.D. Dec 17, 2018 17:44
[2018-12-17 19:04] VITALS: BP 122/72
[2018-12-17 19:06] VITALS: BP 122/72
[2018-12-17 21:01] VITALS: BP 124/80
[2018-12-17] MEDS: CALCIUM CARBONATE 500 MG CHEW U/D PO PRN (21:11)
[2018-12-18] MEDS: MORPHINE 4 MG/ML 1ML VIAL/SYRINGE (J2270) IV PRN ×7 (00:36→23:14)
[2018-12-18] MEDS: ONDANSETRON 4MG/2ML VIAL (J2405) IV PRN ×4 (00:36→23:13)
[2018-12-18] MEDS: SODIUM CHLORIDE 0.9% INJ 10 ML SYR IV SCH ×2 (05:03→17:50)
[2018-12-18 06:08] LABS: HEMATOCRIT 38.5 % (36.0-47.0); HEMOGLOBIN 11.9 g/dl (12.0-15.5); MEAN CORPUSCULAR HEMOGLOBIN 26.6 pg (27.0-33.0); MEAN CORPUSCULAR HGB CONC 30.9 g/dl (32.0-36.5); MEAN CORPUSCULAR VOLUME 86.1 fl (80.0-96.0); PLATELET COUNT, AUTOMATED 152 10^3/uL (150-450); RED BLOOD COUNT 4.47 10^6/uL (4.00-5.40); WHITE BLOOD COUNT 8.2 10^3/uL (4.0-10.0)
[2018-12-18 06:21] VITALS: BP 126/78
[2018-12-18 06:30] LABS: ALBUMIN 2.2 GM/DL (3.2-5.2); ALT/SGPT 107 U/L (12-78); BILIRUBIN,TOTAL 4.9 MG/DL (0.2-1.0); BLOOD UREA NITROGEN 19 MG/DL (7-18); CALCIUM LEVEL 8.2 MG/DL (8.5-10.1); CARBON DIOXIDE LEVEL 30 MEQ/L (21-32); CHLORIDE LEVEL 102 MEQ/L (98-107); CREATININE FOR GFR 0.78 MG/DL (0.55-1.30); GLOMERULAR FILTRATION RATE > 60.0 (>51); GLUCOSE, FASTING 146 MG/DL (70-100); POTASSIUM SERUM 3.4 MEQ/L (3.5-5.1); SODIUM LEVEL 142 MEQ/L (136-145)
[2018-12-18] MEDS: SODIUM CHLORIDE 0.9% INJ 10 ML SYR IV PRN ×2 (07:50→11:32)
--- NOTE | 2018-12-18 08:04 | REP ---
IR Percutaneous transhepatic cholangiography (PTC)IR Internal/external biliary drainage catheter placement with fluoroscopic guidance IR moderate sedation IR US guided paracentesisClinical Information: Pancreatic mass. Biliary obstruction. Obstructive jaundice. Failed retrograde cannulation at ERCPPhysician: Dr. GregoryeProcedure: The patient was advised of the benefits, risks, and alternatives of the procedure and informed consent was obtained.A time out was performed with verification of the patient's name, MRN, site of procedure, and type of procedure to be performed. The patient was positioned in the supine position on the angiographic table. The site was prepped and draped in the usual sterile fashion. Ultrasound of the abdomen demonstrates perihepatic ascites. Under ultrasound guidance, an appropriate puncture site was identified and marked on the right hemiabdomen. The soft tissues overlying the anticipated puncture site were anesthetized with lidocaine. A 5-Bahraini paracentesis catheter was used to access the ascitic fluid. 3 liters of yellow ascitic fluid was drained.Moderate sedation was performed by the physician including the presence of an independent trained observer that assisted in monitoring the patient's level of consciousness and physiological status. Following the administration of fentanyl and Versed, the physician spent 90 minutes of continuous kadw-gw-hgup time with the patient.A land use planner radiograph reveals cholecystectomy clips in the right upper quadrant. The soft tissues overlying the anticipated right upper quadrant puncture site were anesthetized with lidocaine. A right sided hepatic duct was accessed with a 21 gauge Chiba needle under fluoroscopic guidance. A percutaneous trans-hepatic cholangiogram was performed and demonstrates dilated right intrahepatic ducts and biliary obstruction.A 0.018" Union wire was advanced into the right hepatic duct and the needle was exchanged for an Acustick sheath. The inner dilator was removed. A glide wire was advanced through the sheath alongside the 018 wire, down the common bile duct, under fluoroscopy guidance. The 018 wire was removed and a 4-Bahraini Kumper catheter was advanced over the Glidewire down the common bile duct. A repeat cholangiogram was performed and this demonstrates complete distal common bile duct obstruction. The Glidewire in conjunction with the catheter was used to negotiate through the distal CBD obstruction into the duodenum. The wire was removed and repeat contrast injection demonstrates appropriate cannulation through the ampulla and into the duodenum. An Amplatz wire was advanced through the catheter into small bowel. The catheter and sheath were removed over the wire. A 10-Bahraini internal external biliary drainage catheter was advanced over the wire, down the biliary system and into the duodenum. The pigtail was formed in the duodenum and the catheter was positioned appropriately. Repeat contrast injection through the catheter confirms appropriate positioning with side holes communicating with intrahepatic bile ducts and pigtail in the bowel. Post drainage catheter placement, there is complete decompression of the biliary system. The catheter was sutured to the skin with 2-0 Prolene and placed to gravity drainage. A sterile dressing was applied to the catheter insertion site.The patient tolerated the procedure well and was returned to the inpatient unit in stable condition.EBL: < 5 mL.Complications: NoneImpression:1. Percutaneous transhepatic cholangiography demonstrates intra and extra hepatic biliary duct dilation and distal CBD obstruction.2. Successful placement of a 10 Bahraini internal/external biliary drainage catheter. The catheter should be flushed twice daily with 10 ml of sterile saline. Please provide prescription to patient for saline flushes on discharge. 3. Patient to return to IR in 6 to 8 weeks for routine exchange and/or stenting as appropriate. 4. Paracentesis with removal of 3 L of fluid. Thank you for this referral in Electronically Signed by Jossy Cazares MD 12/18/2018 08:02 A
--- NOTE | 2018-12-18 10:04 | IPNPDOC ---
Text Note Date of Service The patient was seen on 12/18/18. NOTE Day 1 status post internal/external biliary drainage catheter placement. No f tory or chills. No increased pain. Reports some nausea. On examination: Patient resting comfortably in bed. Right-sided biliary drainage catheter in place draining bile. Abdomen less distended than yesterday. No significant rebound tenderness. Labs: Bilirubin decreased from 10.7-4.9 in 24 hours. Impression: Biliary drainage catheter draining well. Continue to bag drainage. Resume Xarelto when appropriate. Patient to follow-up in IR in 6 weeks. Thank you for this referral Brit LI, I+O Brit LI I+O Laboratory Tests 12/18/18 05:28 Red Blood Count 4.47, Mean Corpuscular Volume 86.1, Mean Corpuscular Hemoglobin 26.6 L, Mean Corpuscular Hemoglobin Concent 30.9 L, Red Cell Distribution Width 20.2 H, Calcium Level 8.2 L, Aspartate Amino Transf (AST/SGOT) 132 H, Alanine Aminotransferase (ALT/SGPT) 107 H, Alkaline Phosphatase 391 H, Total Bilirubin 4.9 #H, Total Protein 6.0 L, Albumin 2.2 L Vital Signs Date Time Temp Pulse Resp B/P (MAP) Pulse Ox O2 Delivery O2 Flow Rate FiO2 12/18/18 09:00 2.0 12/18/18 08:00 16 12/18/18 06:21 97.6 96 126/78 (94) 91 12/13/18 07:02 Room Air I&O- Last 24 Hours up to 6 AM 12/18/18 05:59 Intake Total 480 ml Output Total 655 ml Balance -175 ml TASHA ORNELAS MD Dec 18, 2018 10:04
[2018-12-18 14:00] VITALS: BP 124/78
[2018-12-18 14:33] LABS: HEMATOCRIT 37.5 % (36.0-47.0); HEMOGLOBIN 11.6 g/dl (12.0-15.5); MEAN CORPUSCULAR HEMOGLOBIN 26.7 pg (27.0-33.0); MEAN CORPUSCULAR HGB CONC 30.9 g/dl (32.0-36.5); MEAN CORPUSCULAR VOLUME 86.4 fl (80.0-96.0); PLATELET COUNT, AUTOMATED 128 10^3/uL (150-450); RED BLOOD COUNT 4.34 10^6/uL (4.00-5.40); WHITE BLOOD COUNT 16.7 10^3/uL (4.0-10.0)
[2018-12-18 14:57] LABS: BLOOD UREA NITROGEN 24 MG/DL (7-18); CALCIUM LEVEL 8.1 MG/DL (8.5-10.1); CARBON DIOXIDE LEVEL 28 MEQ/L (21-32); CHLORIDE LEVEL 103 MEQ/L (98-107); CK-MB VALUE MASS < 1.0 NG/ML (<3.6); CPK CREATINE PHOSPHOKINASE 108 U/L (26-192); CREATININE FOR GFR 0.77 MG/DL (0.55-1.30); GLOMERULAR FILTRATION RATE > 60.0 (>51); GLUCOSE, FASTING 144 MG/DL (70-100); MAGNESIUM LEVEL 2.1 MG/DL (1.8-2.4); MB/CK RELATIVE INDEX 0.93 (< OR =4); POTASSIUM SERUM 3.8 MEQ/L (3.5-5.1); SODIUM LEVEL 141 MEQ/L (136-145); TROPONIN I < 0.02 NG/ML (< 0.10)
[2018-12-18 15:30] VITALS: BP 146/85
[2018-12-18] MEDS: METOPROLOL 5 MG/5 ML VIAL IV SCH ×3 (15:49→16:20)
--- NOTE | 2018-12-18 15:52 | IPNPDOC ---
Subjective Date Seen The patient was seen on 12/18/18. Subjective Chief Complaint/HPI new onset AF RVR noted by nursing while px slept General: Reports: Fatigue; Denies: Chills Constitutional: Denies: Chills Eyes: Denies: Pain, Vision change ENT: Denies: Head Aches Skin: Denies: Rash, Lesions Pulmonary: Denies: Dyspnea, Cough Cardiovascular: Denies: Chest Pain Objective Physical Examination General Exam: Positive: Alert, Cooperative, No Acute Distress Chest Exam: Positive: Clear to auscultation, Normal air movement Heart Exam: Positive: Rate Normal, Normal S1, Normal S2 Abdomen Exam: Positive: Normal bowel sounds, Tenderness (epigastric area, and both sides of her of her upper abdomen) Skin Exam: Positive: Nl turgor and temperature Neuro Exam: Positive: Normal Speech Psych Exam: Positive: Mental status NL, Mood NL Assessment /Plan Problems (1) Leukocytosis Status: Acute Problem Text: 12/18 530 WBC 8.2, 14:21 16.7!; favor bacteremia 2 12/17 PTC drain placement; therefore, BCX2/UCX, emperic kim 1 TID (last dose ceft 2 QD for cholangitis px 12/16)-dw Dr. Cazares who agrees c POC 12/14 peritoneal fluid CX NG (2) Pulmonary embolism Status: Acute Problem Text: 12/12/18 CTA chest s PE 11/2017 "tiny" NO RML artery PE favor 2 malignancy; therefore, + lifelong rivarox (3) Atrial fibrillation Status: Acute Problem Text: 12/18 1400 new onset AF RVR 140 noted by nursing whie px slept; therefore, + ther LMWH BID, met tar 5 mg IV x 3; T-I <0.02, K 3.8/2.1; favor 2 stress from process causing leukocytosis 09/2018 TTE grade 1 susan dysfx, normal LA 11/29/18 TSH 0.9 (4) Biliary obstruction Status: Acute Problem Text: ceftriaxone px for cholangitis-last dose 12/16 12/18 OK to resume AC per Debora; t bili 10.7 to 4.9 12/17 IR Percutaneous transhepatic cholangiography (PTC)IR Internal/external biliary drainage catheter placement with fluoroscopic guidance c drainage of 3150 fluid 12/14 unsuccessful ERCP 2 obstructing pancreatic head mass (5) Pancreatic cancer metastasized to liver Status: Chronic Problem Text: per Oncology on [facility] per Daniel (6) CVA (cerebral vascular accident) Status: Chronic Problem Text: 12/18 started therapeutic LMWH given AF RVR (7) Type 2 diabetes mellitus Status: Chronic Problem Text: diet controlled Plan/VTE VTE Prophylaxis Ordered?: Yes (Xeralto on hold currently) VS, I&O, 24H, Fishbone Vital Signs/I&O Vital Signs Date Time Temp Pulse Resp B/P (MAP) Pulse Ox O2 Delivery O2 Flow Rate FiO2 12/18/18 14:00 98.3 120 20 124/78 (93) 94 2.0 12/13/18 07:02 Room Air I&O- Last 24 Hours up to 6 AM 12/18/18 06:00 Intake Total 480 ml Output Total 655 ml Balance -175 ml Laboratory Data 24H LABS Laboratory Tests 2 12/18/18 05:28: Nucleated Red Blood Cells % (auto) 0.0, Anion Gap 10, Glomerular Filtration Rate > 60.0, Blood Urea Nitrogen 19#H, Creatinine 0.78, Sodium Level 142, Potassium Level 3.4L, Chloride Level 102, Carbon Dioxide Level 30, Calcium Level 8.2L, Aspartate Amino Transf (AST/SGOT) 132H, Alanine Aminotransferase (ALT/SGPT) 107H, Alkaline Phosphatase 391H, Total Bilirubin 4.9#H, Total Protein 6.0L, Albumin 2.2L, Albumin/Globulin Ratio 0.58L 12/18/18 11:40: Methicillin-Resist S.aureus DNA PCR NOT DETECTED 12/18/18 14:21: Nucleated Red Blood Cells % (auto) 0.0, Anion Gap 10, Glomerular Filtration Rate > 60.0, Blood Urea Nitrogen 24H, Creatinine 0.77, Sodium Level 141, Potassium Level 3.8, Chloride Level 103, Carbon Dioxide Level 28, Calcium Level 8.1L, Total Creatine Kinase 108, Magnesium Level 2.1, Creatine Kinase MB < 1.0, Creatine Kinase MB Relative Index 0.93, Troponin I < 0.02 CBC/BMP Laboratory Tests 12/18/18 05:28 Red Blood Count 4.47, Mean Corpuscular Volume 86.1, Mean Corpuscular Hemoglobin 26.6 L, Mean Corpuscular Hemoglobin Concent 30.9 L, Red Cell Distribution Width 20.2 H, Calcium Level 8.2 L, Aspartate Amino Transf (AST/SGOT) 132 H, Alanine Aminotransferase (ALT/SGPT) 107 H, Alkaline Phosphatase 391 H, Total Bilirubin 4.9 #H, Total Protein 6.0 L, Albumin 2.2 L 12/18/18 14:21 Red Blood Count 4.34, Mean Corpuscular Volume 86.4, Mean Corpuscular Hemoglobin 26.7 L, Mean Corpuscular Hemoglobin Concent 30.9 L, Red Cell Distribution Width 20.3 H, Calcium Level 8.1 L, Total Creatine Kinase 108 Microbiology Microbiology 12/14/18 Acid Fast Stain, Received Pending 12/14/18 Mycobacterial Culture, Received Pending 12/14/18 Fungal Smear, Received Pending 12/14/18 Fungal Culture, Received Pending 12/14/18 Anaerobic Culture - Final, Complete 12/14/18 Gram Stain - Final, Complete 12/14/18 Body Fluid Culture - Final, Complete Edwar Yoo M.D. Dec 18, 2018 15:52
[2018-12-18] MEDS ORDERED: ENOXAPARIN 100MG/1ML SYRINGE (J1650) SC ONE (16:00)
[2018-12-18] MEDS: cefTRIAXone SOD 2 GM in D5W MINI-BAG PLUS 50 ML IV SCH (17:53)
[2018-12-18] MEDS: METOPROLOL TART 25 MG TABLET PO SCH ×2 (17:57→23:13)
[2018-12-18] MEDS: LR 1,000 ML IV SCH (18:42)
[2018-12-18] MEDS: MEROPENEM INJ 1 GM in APPROPRIATE DILUENT 1 EA IV SCH (19:43)
[2018-12-18 19:56] LABS: BLOOD UREA NITROGEN 25 MG/DL (7-18); CALCIUM LEVEL 7.6 MG/DL (8.5-10.1); CARBON DIOXIDE LEVEL 33 MEQ/L (21-32); CHLORIDE LEVEL 102 MEQ/L (98-107); CREATININE FOR GFR 0.76 MG/DL (0.55-1.30); GLOMERULAR FILTRATION RATE > 60.0 (>51); GLUCOSE, FASTING 143 MG/DL (70-100); PHOSPHORUS LEVEL 3.5 MG/DL (2.5-4.9); POTASSIUM SERUM 3.5 MEQ/L (3.5-5.1); SODIUM LEVEL 141 MEQ/L (136-145); TROPONIN I < 0.02 NG/ML (< 0.10)
[2018-12-18 20:00] VITALS: BP 98/60
[2018-12-18 23:05] VITALS: BP 124/76
--- NOTE | 2018-12-18 23:33 | ECGEPIP ---
[facility] Test Date: 2018-12-18 Pat Name: JODI GARCIA Department: Room: [place] [address] Gender: Female Patient Services Coordinator: MARCOS : 1960 Requested By: Edwar JUAN Order Number: [id number] Reading MD: Pawan Be Measurements Intervals [place] Rate: 162 P: NE: -1 QRS: 15 QRSD: 93 T: QT: 278 QTc: 457 Interpretive Statements ATRIAL FIBRILLATION WITH RAPID VENTRICULAR RESPONSE NONSPECIFIC ST & T-WAVE ABNORMALITY ABNORMAL RHYTHM ECG Increased heart rate and rhythm change compared with 12/12/2018. Electronically Signed on 12-18-2018 23:33:33 EDT by Pawan Be
[2018-12-18 23:59] VITALS: BP_SYST 129; BP_SYST 93; BP_DIAS 50; BP_DIAS 58
[2018-12-19] MEDS: MEROPENEM INJ 1 GM in APPROPRIATE DILUENT 1 EA IV SCH ×3 (02:32→17:09)
[2018-12-19] MEDS: MORPHINE 4 MG/ML 1ML VIAL/SYRINGE (J2270) IV PRN ×4 (02:33→15:56)
[2018-12-19 04:00] VITALS: BP 122/57
[2018-12-19] MEDS: ENOXAPARIN 100MG/1ML SYRINGE (J1650) SC SCH ×2 (06:05→18:55)
[2018-12-19] MEDS: METOPROLOL TART 25 MG TABLET PO SCH ×3 (06:05→21:57)
[2018-12-19] MEDS: SODIUM CHLORIDE 0.9% INJ 10 ML SYR IV SCH ×2 (06:05→20:42)
[2018-12-19 06:10] LABS: HEMATOCRIT 36.5 % (36.0-47.0); HEMOGLOBIN 11.1 g/dl (12.0-15.5); MEAN CORPUSCULAR HEMOGLOBIN 26.3 pg (27.0-33.0); MEAN CORPUSCULAR HGB CONC 30.4 g/dl (32.0-36.5); MEAN CORPUSCULAR VOLUME 86.5 fl (80.0-96.0); PLATELET COUNT, AUTOMATED 125 10^3/uL (150-450); RED BLOOD COUNT 4.22 10^6/uL (4.00-5.40); WHITE BLOOD COUNT 10.7 10^3/uL (4.0-10.0)
[2018-12-19 06:26] LABS: ALT/SGPT 67 U/L (12-78); BILIRUBIN,TOTAL 3.5 MG/DL (0.2-1.0); BLOOD UREA NITROGEN 23 MG/DL (7-18); CALCIUM LEVEL 7.8 MG/DL (8.5-10.1); CARBON DIOXIDE LEVEL 29 MEQ/L (21-32); CHLORIDE LEVEL 100 MEQ/L (98-107); CREATININE FOR GFR 0.76 MG/DL (0.55-1.30); GLOMERULAR FILTRATION RATE > 60.0 (>51); GLUCOSE, FASTING 115 MG/DL (70-100); POTASSIUM SERUM 3.4 MEQ/L (3.5-5.1); SODIUM LEVEL 137 MEQ/L (136-145); TOTAL PROTEIN 5.7 GM/DL (6.4-8.2)
[2018-12-19 07:43] VITALS: BP 119/56
--- NOTE | 2018-12-19 08:17 | IPNPDOC ---
Subjective Date Seen The patient was seen on 12/19/18. Subjective Chief Complaint/HPI biliary obstruction Events since last encounter s/p biliary drain placement 12/18/18 by IR. Has been draining significant amoun ts. \\Patient developed Afib with RVR yesterday afternoon. was transitioned to PCU. Given IV metoprolol and transitioned to po metoprolol 25 mg po q 6hrs. She converted to Sinus rhythm at 2145. States was never symptomatic during afib episode. Labs were obtain and patient noted to have leukocytosis. Placed on meropenem. Bl cxs obtained. Peritoneal fluid analysis remains pending from paracentesis on 12/14/18. s/p episode of weakness overnight after standing from using commode. No injuries noted, BP was stable. Today, c/o nausea. Constitutional: Reports: Malaise; Denies: Chills, Fever, Night Sweats Pulmonary: Denies: Dyspnea, Cough Cardiovascular: Denies: Chest Pain, Palpitations, Orthopnea, Paroxysmal Noc. Dyspnea, Lt Headedness Gastrointestinal: Reports: Nausea, Abdominal Pain (feeling of fullness); Denies: Vomiting, Diarrhea, Constipation Psych: Reports: Mood Normal; Denies: Depression, Memory Issues Objective Physical Examination General Exam: Positive: Alert, Cooperative, No Acute Distress Chest Exam: Positive: Clear to auscultation, Normal air movement Heart Exam: Positive: Rate Normal, Normal S1, Normal S2 Abdomen Exam: Positive: Normal bowel sounds, Tenderness (epigastric area, and both sides of her of her upper abdomen) Skin Exam: Positive: Nl turgor and temperature Neuro Exam: Positive: Normal Speech Psych Exam: Positive: Mental status NL, Mood NL Assessment /Plan Problems (1) Leukocytosis Status: Acute Problem Text: 12/19/18 Day #2 meropenem. WBC 10.7 today. Bl cxs pending. 12/18 530 WBC 8.2, 14:21 16.7!; favor bacteremia 2 12/17 PTC drain placement; therefore, BCX2/UCX, emperic kim 1 TID (last dose ceft 2 QD for cholangitis px 12/16)-nellie Cazares who agrees c POC 12/14 peritoneal fluid CX NG (2) Pulmonary embolism Status: Acute Problem Text: 12/19/18: on LMWH 100 mg sq q12 until stable and able to return to Xarelto. 12/12/18 CTA chest s PE 11/2017 "tiny" NO RML artery PE favor 2 malignancy; therefore, + lifelong rivarox (3) Atrial fibrillation Status: Acute Problem Text: 12/19/18: converted to NSR. Continue Metoprolol. monitor BP 12/18 1400 new onset AF RVR 140 noted by nursing anjum px slept; therefore, + ther LMWH BID, met tar 5 mg IV x 3; T-I <0.02, K 3.8/2.1; favor 2 stress from process causing leukocytosis 09/2018 TTE grade 1 susan dysfx, normal LA 11/29/18 TSH 0.9 (4) Biliary obstruction Status: Acute Problem Text: 12/19/18: s/p biliary drain placement. ceftriaxone px for cholangitis-last dose 12/16 12/18 OK to resume AC per Debora; t bili 10.7 to 4.9 12/17 IR Percutaneous transhepatic cholangiography (PTC)IR Internal/external biliary drainage catheter placement with fluoroscopic guidance c drainage of 3150 fluid 12/14 unsuccessful ERCP 2 obstructing pancreatic head mass (5) Pancreatic cancer metastasized to liver Status: Chronic Problem Text: 12/19/18: call placed for Oncology consult/eval. patient continues to decline. recommendations appreciated. Will also placed consult to Palliative care. Patient aware and agreeable to both consultations. per Oncology on [facility] per Daniel (6) CVA (cerebral vascular accident) Status: Chronic Problem Text: 12/18 started therapeutic LMWH given AF RVR (7) Type 2 diabetes mellitus Status: Chronic Problem Text: diet controlled Plan/VTE VTE Prophylaxis Ordered?: Yes (Xeralto on hold currently) VS, I&O, 24H, Fishbone Vital Signs/I&O Vital Signs Date Time Temp Pulse Resp B/P (MAP) Pulse Ox O2 Delivery O2 Flow Rate FiO2 12/19/18 07:43 97.9 93 18 119/56 (77) 90 2.0 12/13/18 07:02 Room Air I&O- Last 24 Hours up to 6 AM 12/19/18 05:59 Intake Total 1415 ml Output Total 1240 ml Balance 175 ml Laboratory Data 24H LABS Laboratory Tests 2 12/18/18 11:40: Methicillin-Resist S.aureus DNA PCR NOT DETECTED 12/18/18 14:21: Nucleated Red Blood Cells % (auto) 0.0, Anion Gap 10, Glomerular Filtration Rate > 60.0, Blood Urea Nitrogen 24H, Creatinine 0.77, Sodium Level 141, Potassium Level 3.8, Chloride Level 103, Carbon Dioxide Level 28, Calcium Level 8.1L, Total Creatine Kinase 108, Magnesium Level 2.1, Creatine Kinase MB < 1.0, Creatine Kinase MB Relative Index 0.93, Troponin I < 0.02 12/18/18 19:08: Anion Gap 6L, Glomerular Filtration Rate > 60.0, Blood Urea Nitrogen 25H, Creatinine 0.76, Sodium Level 141, Potassium Level 3.5, Chloride Level 102, Carbon Dioxide Level 33H, Calcium Level 7.6L, Troponin I < 0.02, Phosphorus Lev el 3.5, Albumin 2.0L 12/19/18 05:49: Nucleated Red Blood Cells % (auto) 0.0, Anion Gap 8, Glomerular Filtration Rate > 60.0, Blood Urea Nitrogen 23H, Creatinine 0.76, Sodium Level 137, Potassium Level 3.4L, Chloride Level 100, Carbon Dioxide Level 29, Calcium Level 7.8L, Albumin 2.0L, Aspartate Amino Transf (AST/SGOT) 66H, Alanine Aminotransferase (ALT/SGPT) 67, Alkaline Phosphatase 280H, Total Bilirubin 3.5H, Total Protein 5.7L, Albumin/Globulin Ratio 0.54L CBC/BMP Laboratory Tests 12/18/18 14:21 Red Blood Count 4.34, Mean Corpuscular Volume 86.4, Mean Corpuscular Hemoglobin 26.7 L, Mean Corpuscular Hemoglobin Concent 30.9 L, Red Cell Distribution Width 20.3 H, Calcium Level 8.1 L, Total Creatine Kinase 108 12/18/18 19:08 Anion Gap 6 L 12/19/18 05:49 Red Blood Count 4.22, Mean Corpuscular Volume 86.5, Mean Corpuscular Hemoglobin 26.3 L, Mean Corpuscular Hemoglobin Concent 30.4 L, Red Cell Distribution Width 20.2 H, Calcium Level 7.8 L, Aspartate Amino Transf (AST/SGOT) 66 H, Alanine Aminotransferase (ALT/SGPT) 67, Alkaline Phosphatase 280 H, Total Bilirubin 3.5 H, Total Protein 5.7 L, Albumin 2.0 L Microbiology Microbiology 12/18/18 Blood Culture, Received Pending 12/18/18 Blood Culture, Received Pending 12/14/18 Acid Fast Stain, Received Pending 12/14/18 Mycobacterial Culture, Received Pending 12/14/18 Fungal Smear, Received Pending 12/14/18 Fungal Culture, Received Pending 12/14/18 Anaerobic Culture - Final, Complete 12/14/18 Gram Stain - Final, Complete 12/14/18 Body Fluid Culture - Final, Complete 12/19/18 Urine Culture, Received Pending Jie Cameron [facility] Dec 19, 2018 08:17
[2018-12-19] MEDS: PROMETHAZINE INJ 25 MG/ML VIAL (J2550) IV PRN ×3 (08:22→22:53)
[2018-12-19] MEDS: LR 1,000 ML IV SCH ×2 (08:22→22:54)
[2018-12-19] MEDS: ONDANSETRON 4MG/2ML VIAL (J2405) IV PRN ×3 (09:33→20:38)
[2018-12-19] MEDS: SODIUM CHLORIDE 0.9% INJ 10 ML SYR IV PRN (10:10)
[2018-12-19] MEDS: CALCIUM CARBONATE 500 MG CHEW U/D PO PRN (10:16)
[2018-12-19 12:00] VITALS: BP 121/58
[2018-12-19 16:00] VITALS: BP 117/59
[2018-12-19] MEDS ORDERED: LORazepam 2 MG/ML VIAL (J2060) IV STA (16:49)
--- NOTE | 2018-12-19 16:49 | CR.PDOC ---
General Date of Consultation: Dec 19, 2018 Referring Provider: Jie Cameron Primary Care Physician: Edwar Yoo M.D. Attending Physician: Santy Sam MD Consultation REASON FOR CONSULTATION/CHIEF COMPLAINT: Metastatic pancreatic cancer ( mets to liver ) with biliary obstruction. Nausea and vomiting not ocntoerlled with ondansetron and phenergan. Abdominal pain improved so some degree with morphine 4 mg IV prn. HISTORY OF PRESENT ILLNESS: PAST MEDICAL HISTORY: 1. Pancreatic Adenocarcinoma with metastasis to the liver 2. History of Pulmonary Embolism on Xarelto 3. History of CVA 4. Chemotherapy induced Neutropenia 5. Morbid Obesity PAST SURGICAL HISTORY: 1. Cholecystectomy 2. Section 3. Abdominal Hysterectomy 4. Port placement and removal x3 SOCIAL HISTORY: Patient is currently and lives at home with her in [place], [place]. She denies tobacco use. She admits to marijuana use for nausea and pain related to her cancer. She denies recent travel. FAMILY HISTORY: Patient has a father who of a heart attack at the age of 54 and a brother who of a heart attack at 56. No family history of TIA or stroke ALLERGIES: Please see below. REVIEW OF SYSTEMS: CONSTITUTIONAL: Overall feels unwell HEENT: No ear discharge/pain, no dysphagia CARDIOVASCULAR: No chest pain, no palpitations, no leg swelling RESPIRATORY: No shortness of breath, no wheezing, no cough GENITOURINARY: No hematuria, no burning during urination MUSCULOSKELETAL: No joint pain GASTROINTESTINAL: as stated above SKIN: no rash NEUROLOGICAL: No loss of sensation PSYCHIATRIC: somewhat anxious ENDOCRINE: no hot/cold intolerance HEMATOLOGIC/LYMPHATIC: no new bruising/lumps/bumps PHYSICAL EXAMINATION: VITAL SIGNS: Please see below. GENERAL APPEARANCE: skin appears somewhat jaundiced, laying in bed on her left side, obese female, in some distress due to nausea and pain, calm, pleasant, drowsy HEENT: Some scleral icterus is present with evidence of jaundice under tongue. normal oropharynx. no enlarged cervical lymph nodes RESPIRATORY: clear to auscultation bilaterally without any adventitious breath sounds appreciated CARDIOVASCULAR: regular rate and rhythm without any murmurs/rubs/gallops, normal S1/S2 ABDOMEN: soft, very tender to palpation in RUQ and epigastric region, no masses or organomegaly, + hypoactive bowel sounds EXTREMITIES: no pedal edema, pulses palpable NEUROLOGICAL: CN 2-12 intact without any focal deficits PSYCHIATRIC: normal mood/affect LABORATORY DATA: Please see below. IMAGING: CT scan demonstrates cavernous transformation of the portal vein 2/2 obstruction and mild intrahepatic biliary duct dilatation. There is some adenopathy in the upper abdomen, predominantly in the tan hepatis, gastrohepatic ligament and paracaval region. REVIEW OF SYSTEMS: CONSTITUTIONAL: +fevers, +fatigue HEENT: no vision changes, no sore throat CARDIOVASCULAR: had Afib last night, denies chest pain or awareness of palpi tations RESPIRATORY: +cough GENITOURINARY: no dysuria MUSCULOSKELETAL: no swollen or painful joints GASTROINTESTINAL: severe nausea, vomiting. Some constipation, +abdominal pain SKIN: bruising, no rashes NEUROLOGICAL: weak, denies tremors or rigidity PSYCHIATRIC: denies depression, some anxioety around diagnosis and prognosis ENDOCRINE: DM, pancreatic ca, denies excessive thirst HEMATOLOGIC/LYMPHATIC: as above PHYSICAL EXAMINATION: VITAL SIGNS: Please see below. GENERAL APPEARANCE: sallow appearing. CLosing eyes frequently but awake, trying to reduce any sensation that will trigger pain or nausea HEENT: Sclerae ecteric, moist mucous membranes RESPIRATORY: reduced breath sounds in bases CARDIOVASCULAR: RRR ABDOMEN: +ascites, diffuse tenderness across upper abdomen, +BS EXTREMITIES: No CCE NEUROLOGICAL: CN 2-12 grossly intact, no focal deficit PSYCHIATRIC: appears calm, expresses concern about 's response to her illness LABORATORY DATA: Please see below. ASSESSMENT/PLAN: 1. Nausea/vomiting: consideration could be given to IV lorazepam 0.5 mg IV q 4 hr prn nausea, or dexamethasone 4-8 mg IV q 6 hr prn. As a last resort haloperidol 1-1.25 mg IV could be considered butgiven recent cardiac events, this might not be desirable 2. Morphine 4 mg IV is helpful most of the time according to the patient and nursing staff. Consider morphine concentrate 10-15 mg sl q 3 hr prn. She also may benefit from standing doses of either IV or sl morphine every 4 hours if SBP > 90, rr >10/min. 3. Clarify goals of care: she appears to be hospice appropriate. Her was not present when I saw her and she appeared to be uncertain if she had any further treatment options. I think her comfort is the primary goal at this time. Vital Signs/I&O Vital Signs Date Time Temp Pulse Resp B/P (MAP) Pulse Ox O2 Delivery O2 Flow Rate FiO2 12/19/18 16:00 97.0 90 18 117/59 (78) 92 4.0 12/13/18 07:02 Room Air I&O- Last 24 Hours up to 6 AM 12/19/18 06:00 Intake Total 1805 ml Output Total 1465 ml Balance 340 ml Laboratory Data Labs 24H Laboratory Tests 2 12/18/18 19:08: Blood Urea Nitrogen 25H, Creatinine 0.76, Sodium Level 141, Potassium Level 3.5, Chloride Level 102, Carbon Dioxide Level 33H, Anion Gap 6L, Glomerular Filtr ation Rate > 60.0, Calcium Level 7.6L, Phosphorus Level 3.5, Troponin I < 0.02, Albumin 2.0L 12/19/18 05:49: Blood Urea Nitrogen 23H, Creatinine 0.76, Sodium Level 137, Potassium Level 3.4L, Chloride Level 100, Carbon Dioxide Level 29, Anion Gap 8, Glomerular Filtration Rate > 60.0, Calcium Level 7.8L, Albumin 2.0L, Nucleated Red Blood Cells % (auto) 0.0, Aspartate Amino Transf (AST/SGOT) 66H, Alanine Aminotransferase (ALT/SGPT) 67, Alkaline Phosphatase 280H, Total Bilirubin 3.5H, Total Protein 5.7L, Albumin/Globulin Ratio 0.54L CBC/BMP Laboratory Tests 12/18/18 19:08 Anion Gap 6 L 12/19/18 05:49 Red Blood Count 4.22, Mean Corpuscular Volume 86.5, Mean Corpuscular Hemoglobin 26.3 L, Mean Corpuscular Hemoglobin Concent 30.4 L, Red Cell Distribution Width 20.2 H, Calcium Level 7.8 L, Aspartate Amino Transf (AST/SGOT) 66 H, Alanine Aminotransferase (ALT/SGPT) 67, Alkaline Phosphatase 280 H, Total Bilirubin 3.5 H, Total Protein 5.7 L, Albumin 2.0 L Microbiology Microbiology 12/18/18 Blood Culture, Received Pending 12/18/18 Blood Culture, Received Pending 12/14/18 Acid Fast Stain, Received Pending 12/14/18 Mycobacterial Culture, Received Pending 12/14/18 Fungal Smear, Received Pending 12/14/18 Fungal Culture, Received Pending 12/14/18 Anaerobic Culture - Final, Complete 12/14/18 Gram Stain - Final, Complete 12/14/18 Body Fluid Culture - Final, Complete 12/19/18 Urine Culture, Received Pending Allergies Coded Allergies: No Known Allergies (Unverified , 08/22/18) Home Medications Scheduled Aspirin (Aspir 81) 81 Mg Tablet.dr, 81 MG PO QHS, (Reported) Ceftriaxone Sodium (Ceftriaxone) 2 Gm Vial, 2 GM IV DAILY, (Reported) STARTED 12/06/18; FOR 27 DAYS Ferrous Sulfate (Ferrous Sulfate) 325 Mg Tablet, 325 MG PO QHS, (Reported) L.acidoph/L.bulg/B.bif/S.therm (Sudha-Bid Caplet) 1 Each Tablet, 1 TAB PO DAILY, (Reported) Potassium Chloride (Potassium Chloride) 20 Meq Tablet.er, 20 MEQ PO DAILY, (Reported) Rivaroxaban (Xarelto) 10 Mg Tablet, 10 MG PO DAILY, (Reported) PREVIOUSLY INPUT 20 MG, BUT LAST PICKED UP AT PHARMACY WAS 10 MG IN SEPTEMBER AND OCTOBER Scheduled PRN Acetaminophen (Acetaminophen) 325 Mg Tablet, 325 MG PO Q4H PRN for PAIN, (Reported) Hydrocodone/Acetaminophen ([place] 5-325 Tablet) 1 Tab Tab, 1 TAB PO Q8H PRN for PAIN, (Reported) Olanzapine (Olanzapine) 10 Mg Tablet, 10 MG PO Q2WK PRN for SEVERE NAUSEA, (Reported) TAKES ON CHEMO DAYS PRN Ondansetron HCl (Zofran) 8 Mg Tab, 8 MG PO BID PRN for NAUSEA, (Reported) Prochlorperazine Maleate (Prochlorperazine Maleate) 10 Mg Tab, 10 MG PO Q6H PRN for NAUSEA, (Reported) Zolpidem Tartrate (Zolpidem Tartrate) 5 Mg Tablet, 5 MG PO QHS PRN for INSOMNIA, (Reported) Jeanne [facility] [employer] Dec 19, 2018 16:48
[2018-12-19] MEDS ORDERED: LORazepam 2 MG/ML VIAL (J2060) IV PRN (17:00)
--- NOTE | 2018-12-19 18:10 | REP ---
CHEST, TWO VIEWS: Two views of the chest are performed. There is cardiomegaly. There appear to be bibasilar infiltrates and small effusions, left greater than right. The remainder of the study is unchanged. Electronically Signed by Sung Wang MD 12/20/2018 12:38 P
[2018-12-19] MEDS: cefTRIAXone SOD 2 GM in D5W MINI-BAG PLUS 50 ML IV SCH (18:56)
[2018-12-19 20:00] VITALS: BP 115/67
[2018-12-19 23:59] VITALS: BP 119/58
[2018-12-20] VITALS (11 sets, daily range): BP systolic 60–98; BP diastolic 36–62
[2018-12-20] MEDS: ONDANSETRON 4MG/2ML VIAL (J2405) IV PRN ×2 (00:59→09:48)
[2018-12-20] MEDS: MEROPENEM INJ 1 GM in APPROPRIATE DILUENT 1 EA IV SCH ×2 (00:59→09:49)
[2018-12-20] MEDS: MORPHINE 4 MG/ML 1ML VIAL/SYRINGE (J2270) IV PRN ×3 (01:45→13:21)
[2018-12-20] MEDS: PROMETHAZINE INJ 25 MG/ML VIAL (J2550) IV PRN (04:40)
[2018-12-20] MEDS: CALCIUM CARBONATE 500 MG CHEW U/D PO PRN (04:40)
[2018-12-20] MEDS: METOPROLOL TART 25 MG TABLET PO SCH (06:00)
[2018-12-20] MEDS: ENOXAPARIN 100MG/1ML SYRINGE (J1650) SC SCH (06:29)
[2018-12-20] MEDS: SODIUM CHLORIDE 0.9% INJ 10 ML SYR IV SCH (06:30)
[2018-12-20 07:10] LABS: HEMATOCRIT 26.8 % (36.0-47.0); MEAN CORPUSCULAR HEMOGLOBIN 26.8 pg (27.0-33.0); MEAN CORPUSCULAR HGB CONC 29.9 g/dl (32.0-36.5); MEAN CORPUSCULAR VOLUME 89.6 fl (80.0-96.0); PLATELET COUNT, AUTOMATED 234 10^3/uL (150-450); RED BLOOD COUNT 2.99 10^6/uL (4.00-5.40); WHITE BLOOD COUNT 14.4 10^3/uL (4.0-10.0)
--- NOTE | 2018-12-20 07:26 | IPNPDOC ---
Subjective Date Seen The patient was seen on 12/20/18. Subjective Chief Complaint/HPI Biliary obstruction Events since last encounter patient developed confusion with red blood tinged emesis overnight. Given Morp bryan 4 mg IV prn with minimal improvement per nursing staff. Finally seemed to calm and find comfort at approximately 0645 this am. CXR completed 12/19/18: bibasilar pneumonia, pleural effusion. Patient has become tachycardic with BP ranging in 90s systolic. Constitutional: Reports: Chills, Malaise, Weakness, Fatigue, Lethargy Pulmonary: Reports: Dyspnea; Denies: Cough Cardiovascular: Denies: Chest Pain, Palpitations, Orthopnea, Edema Gastrointestinal: Reports: Nausea, Vomiting; Denies: Abdominal Pain Genitourinary: Denies: Dysuria, Frequency Musculoskeletal: Reports: Other Symptoms (generalized pain) Neurological: Reports: Confusion Psych: Reports: Memory Issues Objective Physical Examination General Exam: Positive: Alert, Cooperative, Moderate Distress Chest Exam: Positive: Normal air movement, Rhonchi (bibasilar) Heart Exam: Positive: Rate Normal, Tachycardic, Normal S1, Normal S2 Telemetry: Positive: Tachycardia Abdomen Exam: Positive: Normal bowel sounds, Tenderness (epigastric area, and both sides of her of her upper abdomen) Skin Exam: Positive: Nl turgor and temperature Neuro Exam: Positive: Normal Speech Psych Exam: Positive: Mental status NL (alert and oriented, vague in response), Mood NL Assessment /Plan Problems (1) Pancreatic cancer metastasized to liver Status: Chronic Problem Text: 12/20/18: Continues with clinical decline. had lengthy discussion with patient regarding disease progression and recommendation for CLINICAL REVIEW SPECIALIST/Hospice. Patient refuses CLINICAL REVIEW SPECIALIST/Hospice and would like to try and treat pneumonia. Will review with patient's . Will continue with pain control. Confirmed with patient she remains a DNR. Paracentesis canceled for today due to hypotension. 12/20/18 @ 1130: Patient continues to decline. Ordered Protamine sulfate for reversal of Lovenox and INR of 8.10. Unable to proceed due to hypotension: BP 80/40. Patient remains intermittently confused, yelling out. Called patient's and notified him of patient's condition and recommendation of CLINICAL REVIEW SPECIALIST. Patient w/o transportation and attempting to come in. advised to continue treatment until he gets here to decide on comfort measures. 12/20/18 1239: Patient continued to medically decline with doppler systolic BP of 60. patient confused, yet responsive. Called family in and they agree with recommended CLINICAL REVIEW SPECIALIST. Will finish transfusion as indicated and medicate for pain/nausea/anxiety or other needs. Family agreeable MOLST filled out. REviewed with patient's Jhon Cherry. Reviewed with Dr. Yoo, attending. 12/19/18: call placed for Oncology consult/eval. patient continues to decline clinically. recommendations appreciated. Will also placed consult to Palliative care. Patient aware and agreeable to both consultations. per Oncology on [facility] per Daniel (2) Leukocytosis Status: Acute Problem Text: 12/20/18: DAy #3 Meropenem. Ceftriaxone started 12/19 for pneumonia. 12/19/18 Day #2 meropenem. WBC 10.7 today. Bl cxs pending. 12/18 530 WBC 8.2, 14:21 16.7!; favor bacteremia 2 12/17 PTC drain placement; therefore, BCX2/UCX, emperic kim 1 TID (last dose ceft 2 QD for cholangitis px 12/16)-dw Dr. Cazares who agrees c POC 12/14 peritoneal fluid CX NG (3) Pulmonary embolism Status: Acute Problem Text: 12/20/18: INR 8.10. DC lovenox. treat bleeding. 12/19/18: on LMWH 100 mg sq q12 until stable and able to return to Xarelto. 12/12/18 CTA chest s PE 11/2017 "tiny" NO RML artery PE favor 2 malignancy; therefore, + lifelong rivarox (4) Biliary obstruction Status: Acute Problem Text: 12/19/18: s/p biliary drain placement. ceftriaxone px for cholangitis-last dose 12/16 12/18 OK to resume AC per Debora; t bili 10.7 to 4.9 12/17 IR Percutaneous transhepatic cholangiography (PTC)IR Internal/external biliary drainage catheter placement with fluoroscopic guidance c drainage of 3150 fluid 12/14 unsuccessful ERCP 2 obstructing pancreatic head mass (5) CVA (cerebral vascular accident) Status: Chronic Problem Text: 12/18 started therapeutic LMWH given AF RVR (6) Type 2 diabetes mellitus Status: Chronic Problem Text: diet controlled (7) Atrial fibrillation Status: Resolved Problem Text: 12/19/18: converted to NSR. Continue Metoprolol. monitor BP 12/18 1400 new onset AF RVR 140 noted by nursing anjum massey slept; therefore, + ther LMWH BID, met tar 5 mg IV x 3; T-I <0.02, K 3.8/2.1; favor 2 stress from process causing leukocytosis 09/2018 TTE grade 1 susan dysfx, normal LA 11/29/18 TSH 0.9 Plan/VTE VTE Prophylaxis Ordered?: Yes (Xeralto on hold currently) VS, I&O, 24H, Fishbone Vital Signs/I&O Vital Signs Date Time Temp Pulse Resp B/P (MAP) Pulse Ox O2 Delivery O2 Flow Rate FiO2 12/20/18 06:00 122 98/58 12/20/18 04:00 97.1 18 100 4.0 I&O- Last 24 Hours up to 6 AM 12/20/18 06:00 Intake Total 420 ml Output Total 745 ml Balance -325 ml Laboratory Data 24H LABS Laboratory Tests 2 12/20/18 06:50: Nucleated Red Blood Cells % (auto) 0.3H CBC/BMP Laboratory Tests 12/20/18 06:50 Red Blood Count 2.99 L, Mean Corpuscular Volume 89.6, Mean Corpuscular Hemoglobin 26.8 L, Mean Corpuscular Hemoglobin Concent 29.9 L, Red Cell Distri bution Width 20.1 H Microbiology Microbiology 12/18/18 Blood Culture - Preliminary, Resulted No growth after 24 hours . All specim... 12/18/18 Blood Culture - Preliminary, Resulted No growth after 24 hours . All specim... 12/14/18 Acid Fast Stain, Received Pending 12/14/18 Mycobacterial Culture, Received Pending 12/14/18 Fungal Smear, Received Pending 12/14/18 Fungal Culture, Received Pending 12/14/18 Anaerobic Culture - Final, Complete 12/14/18 Gram Stain - Final, Complete 12/14/18 Body Fluid Culture - Final, Complete 12/19/18 Urine Culture, Received Pending Jie Cameron [employer] Dec 20, 2018 07:26
[2018-12-20 07:42] LABS: ALBUMIN 1.7 GM/DL (3.2-5.2); BILIRUBIN,TOTAL 2.9 MG/DL (0.2-1.0); CALCIUM LEVEL 7.4 MG/DL (8.5-10.1); CREATININE FOR GFR 1.11 MG/DL (0.55-1.30); GLOMERULAR FILTRATION RATE 53.6 (>51); MAGNESIUM LEVEL 2.2 MG/DL (1.8-2.4); POTASSIUM SERUM 3.9 MEQ/L (3.5-5.1); TOTAL PROTEIN 4.9 GM/DL (6.4-8.2)
--- NOTE | 2018-12-20 08:14 | MEDONCENPD ---
Date/Time of Encounter Date of Encounter: Dec 20, 2018 Time of Encounter: 07:30 Encounter Full consult dictated Impression Stage IV pancreatic cancer with malignant ascites A fib RVR Biliary obstruction due to tumor mass extrinsic compression Plan Prognosis for stage IV pancreatic cancer with malignant ascites is poor Here the best odds are around 3 months and this is not likely possible in this case is more like a few weeks I would recommend symptomaitic treatment only continue antibiotics with recent stent placement time to start discussions about hospice with the family Mary Sanchez MD Dec 20, 2018 08:14
[2018-12-20 09:45] LABS: BASO % 0.2 % (0.0-1.0); HEMOGLOBIN 8.5 g/dl (12.0-15.5); LYMPH # 0.4 10^3/uL (1.5-4.5); LYMPH % 2.3 % (24.0-44.0); MEAN CORPUSCULAR HEMOGLOBIN 26.7 pg (27.0-33.0); MEAN CORPUSCULAR HGB CONC 30.4 g/dl (32.0-36.5); MEAN CORPUSCULAR VOLUME 88.1 fl (80.0-96.0); MONO % 5.8 % (0.0-5.0); NEUTROPHILS # 14.7 10^3/uL (1.8-7.7); NEUTROPHILS % 90.2 % (36.0-66.0); PLATELET COUNT, AUTOMATED 229 10^3/uL (150-450); RED BLOOD COUNT 3.18 10^6/uL (4.00-5.40); WHITE BLOOD COUNT 16.3 10^3/uL (4.0-10.0)
[2018-12-20 09:58] LABS: PARTIAL THROMBOPLASTIN TIME 61.4 SECONDS (25.0-38.4); PROTHROMBIN TIME 68.8 SECONDS (11.8-14.0)
[2018-12-20 10:33] LABS: INR 8.1
[2018-12-20] MEDS ORDERED: PROTAMINE SULF INJ 50 MG/5 ML VIAL (J2720) IV STA (10:51)
[2018-12-20] MEDS: LR 1,000 ML IV SCH (11:03)
[2018-12-20] MEDS ORDERED: NS 1,000 ML IV SCH (12:00)
[2018-12-20] MEDS ORDERED: NS 1,000 ML IV ONE (12:15)
[2018-12-20] MEDS ORDERED: LORazepam 1 MG TAB SL PRN (15:00)
--- NOTE | 2018-12-20 15:23 | CR.PDOC ---
General Date of Consultation: Dec 20, 2018 Referring Provider: Jie Cameron Primary Care Physician: Santy Sam MD Attending Physician: Edwar Yoo M.D. Consultation Follow up of Jalyn's condition today. Lorazepam gave her some MS changes, but did seem to help nausea to some degree. 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 I spoke with Jalyn and her Jhon as well as Jalyn's son and daughter. Jalyn has expressed the desire to go home as soon as possible. At this point she has been managed with IV medications only due to n/v. She took morphine 4 mg IV 4-5 times/24 hours yesterday. We will try giving her sl morphine concentrate 30 mg q 2 hr. If she can tolerate this and sl lorazepam 1 mg q 6 hr prn for nausea, then IV morphine can be discontinued. Her family stated they would be willing to care for her at home until hospice or other services can be put in place. ASSESSMENT/PLAN: 1. Metastatic pancreatic cancer- trial po morphine/lorazepam. If this adequately controls her pain/nausea, she can be transported home. although it would likely beadvisable for her to stay one more night to ensure oral analgesics will keep her symptoms in good control. Vital Signs/I&O Vital Signs Date Time Temp Pulse Resp B/P (MAP) Pulse Ox O2 Delivery O2 Flow Rate FiO2 12/20/18 13:31 22 90 2.0 12/20/18 12:11 97.0 111 60/ (20) I&O- Last 24 Hours up to 6 AM 12/20/18 06:00 Intake Total 420 ml Output Total 745 ml Balance -325 ml Laboratory Data Labs 24H Laboratory Tests 2 12/20/18 06:50: Nucleated Red Blood Cells % (auto) 0.3H, Anion Gap 12, Glomerular Filtration Rate 53.6, Blood Urea Nitrogen 41#H, Creatinine 1.11, Sodium Level 135L, Potassium Level 3.9, Chloride Level 97L, Carbon Dioxide Level 26, Calcium Level 7.4L, Aspartate Amino Transf (AST/SGOT) 58H, Alanine Aminotransferase (ALT/SGPT) 46, Alkaline Phosphatase 200H, Total Bilirubin 2.9H, Total Protein 4.9L, Albumin 1.7L, Magnesium Level 2.2, Albumin/Globulin Ratio 0.53L 12/20/18 09:18: Nucleated Red Blood Cells % (auto) 0.4H, Immature Granulocyte % (Auto) 1.5, White Blood Count 16.3H, Red Blood Count 3.18L, Hemoglobin 8.5L, Hematocrit 28.0L, Mean Corpuscular Volume 88.1, Mean Corpuscular Hemoglobin 26.7L, Mean Corpuscular Hemoglobin Concent 30.4L, Red Cell Distribution Width 20.1H, Platelet Count 229, Neutrophils (%) (Auto) 90.2H, Lymphocytes (%) (Auto) 2.3L, Monocytes (%) (Auto) 5.8H, Eosinophils (%) (Auto) 0.0, Basophils (%) (Auto) 0.2, Neutrophils # (Auto) 14.7H, Lymphocytes # (Auto) 0.4L, Monocytes # (Auto) 1.0H, Eosinophils # (Auto) 0.0, Basophils # (Auto) 0.0, Prothrombin Time 68.8H, Prothromb Time International Ratio 8.10*H, Activated Partial Thromboplast Time 61.4H CBC/BMP Laboratory Tests 12/20/18 06:50 Red Blood Count 2.99 L, Mean Corpuscular Volume 89.6, Mean Corpuscular Hemoglobin 26.8 L, Mean Corpuscular Hemoglobin Concent 29.9 L, Red Cell Distribution Width 20.1 H, Calcium Level 7.4 L, Aspartate Amino Transf (AST/SGOT) 58 H, Alanine Aminotransferase (ALT/SGPT) 46, Alkaline Phosphatase 200 H, Total Bilirubin 2.9 H, Total Protein 4.9 L, Albumin 1.7 L 12/20/18 09:18 Red Blood Count 3.18 L, Mean Corpuscular Volume 88.1, Mean Corpuscular Hemoglobin 26.7 L, Mean Corpuscular Hemoglobin Concent 30.4 L, Red Cell Distribution Width 20.1 H, Neutrophils (%) (Auto) 90.2 H, Lymphocytes (%) (Auto) 2.3 L, Monocytes (%) (Auto) 5.8 H, Eosinophils (%) (Auto) 0.0, Basophils (%) (Auto) 0.2, Neutrophils # (Auto) 14.7 H, Lymphocytes # (Auto) 0.4 L, Monocytes # (Auto) 1.0 H, Eosinophils # (Auto) 0.0, Basophils # (Auto) 0.0 Microbiology Microbiology 12/18/18 Blood Culture - Preliminary, Resulted No growth after 24 hours . All specim... 12/18/18 Blood Culture - Preliminary, Resulted No growth after 24 hours . All specim... 12/20/18 Occult Blood - Final, Complete 12/14/18 Acid Fast Stain, Received Pending 12/14/18 Mycobacterial Culture, Received Pending 12/14/18 Fungal Smear, Received Pending 12/14/18 Fungal Culture, Received Pending 12/14/18 Anaerobic Culture - Final, Complete 12/14/18 Gram Stain - Final, Complete 12/14/18 Body Fluid Culture - Final, Complete 12/19/18 Urine Culture - Final, Complete Yeast Like Organism Allergies Coded Allergies: No Known Allergies (Unverified , 08/22/18) Home Medications Scheduled Aspirin (Aspir 81) 81 Mg Tablet.dr, 81 MG PO QHS, (Reported) Ceftriaxone Sodium (Ceftriaxone) 2 Gm Vial, 2 GM IV DAILY, (Reported) STARTED 12/06/18; FOR 27 DAYS Ferrous Sulfate (Ferrous Sulfate) 325 Mg Tablet, 325 MG PO QHS, (Reported) L.acidoph/L.bulg/B.bif/S.therm (Sudha-Bid Caplet) 1 Each Tablet, 1 TAB PO DAILY, (Reported) Potassium Chloride (Potassium Chloride) 20 Meq Tablet.er, 20 MEQ PO DAILY, (Reported) Rivaroxaban (Xarelto) 10 Mg Tablet, 10 MG PO DAILY, (Reported) PREVIOUSLY INPUT 20 MG, BUT LAST PICKED UP AT PHARMACY WAS 10 MG IN SEPTEMBER AND OCTOBER Scheduled PRN Acetaminophen (Acetaminophen) 325 Mg Tablet, 325 MG PO Q4H PRN for PAIN, (Reported) Hydrocodone/Acetaminophen ([place] 5-325 Tablet) 1 Tab Tab, 1 TAB PO Q8H PRN for PAIN, (Reported) Olanzapine (Olanzapine) 10 Mg Tablet, 10 MG PO Q2WK PRN for SEVERE NAUSEA, (Reported) TAKES ON CHEMO DAYS PRN Ondansetron HCl (Zofran) 8 Mg Tab, 8 MG PO BID PRN for NAUSEA, (Reported) Prochlorperazine Maleate (Prochlorperazine Maleate) 10 Mg Tab, 10 MG PO Q6H PRN for NAUSEA, (Reported) Zolpidem Tartrate (Zolpidem Tartrate) 5 Mg Tablet, 5 MG PO QHS PRN for INSOMNIA, (Reported) Jeanne SHI SENIOR CORPORATE ACCOUNTANT Dec 20, 2018 15:23
[2018-12-20] MEDS: MORPHINE 10MG/0.5ML ORAL CONCENTRATE SOLUTION U/D SL PRN ×2 (15:54→18:20)
--- NOTE | 2018-12-20 21:37 | CR ---
DATE OF CONSULTATION: 12/20/2018 REASON FOR CONSULTATION: History of pancreatic carcinoma. This is a very pleasant 58-year-old white female with a known history of stage IV pancreatic carcinoma with liver metastases on second line chemotherapy with FOLFIRI regimen. The patient has been also seen at [facility] for her disease management. The patient had the oxaliplatin removed due to the neuropathy. Her neuropathy had resolved somewhat and the patient was reintroduced with oxaliplatin with a 15% dose reduction. The patient had developed cytopenias during her therapy. The patient unfortunately had been admitted to the hospital as she had presented with jaundice, biliary obstruction, and massive ascites. The patient had also developed leukocytosis and concern for the patient was possible sepsis and was covered on antibiotics therapy. Since that time and since her admission, the patient had developed atrial fibrillation with a rapid ventricular response which was rate controlled. An esophagogastroduodenoscopy (EGD) was done due to the presentation of the jaundice and for consideration of possible placement of a biliary stent. The patient was found to have extrinsic moderate stenosis in the second portion of the duodenum and the endoscopic retrograde cholangiopancreatography (ERCP) had to be stopped due to an inability to pass the scope through. Interventional radiology then did a percutaneous transhepatic cholangiogram and stent placement and had also, on a separate occasion, had done a percutaneous drainage of ascites. The patient had more than in total 6000 mL of peritoneal fluid removed within a 72-hour period. The patient remains remarkably jaundiced and still has some residual ascites. She is currently awake but somewhat tired and lethargic. She is able to answer questions appropriately and pain management in the midepigastric area still continues to be an issue with her. The patient relates that the pain is mid epigastric, somewhat around globally area in the abdominal region, and there is no correlation with eating. The patient is has no appetite. She has had some nausea. No current vomiting at present. The patient is currently on intravenous morphine for pain control management. The patient's chest x-ray has shown a basilar pneumonia and a pleural effusion and she remains somewhat tachycardiac. The patient's past medical history includes pancreatic adenocarcinoma with metastases to the liver, history of pulmonary embolism, chemotherapy-induced neutropenia, morbid obesity, type 2 diabetes. PAST SURGICAL HISTORY: Cholecystectomy, section, abdominal hysterectomy. SOCIAL HISTORY: The patient is currently . Negative for tobacco. Occasionally uses marijuana for nausea and pain related to her cancer. FAMILY HISTORY: Father of a myocardial infarction ([place]) at 54. She had a brother who of a heart attack at 56. There is no history of transient ischemic attack (TIA) or stroke. She has no known drug allergies. Her current medications include: - ceftriaxone - meropenem - calcium carbonate - TUMS every four hours as needed - Lovenox 100 mg subcutaneous every 12 hours - Ativan 0.4 mg IV as needed for agitation - metoprolol 25 mg by mouth every six hours - MiraLax one packet by mouth twice a day On the patient's review of systems, she is generally tired, fatigued, relates feeling minimally nauseous currently, diffuse pain around a 4/5 in the mid abdominal area, tired, lethargic, needs assistance in all of her activities of daily living. On her physical examination, the patient is markedly jaundiced. She has a performance status of a 3/4. Her temperature is 97.1, respiratory rate is 18, blood pressure is 96/52, pulse oximetry is 100%. HEENT: Her sclerae is jaundiced. Oropharynx is clear. NECK: Supple. CHEST: Decreased breath sounds at the bases. CARDIOVASCULAR: S1, S2, rhythm is irregularly irregular. ABDOMEN: Large, globoid, positive for freely flowing ascites. EXTREMITIES: Show about a trace plus pitting edema. Her entire skin area is markedly jaundiced. LABORATORY DATA: Her WBC count is 14.4, hemoglobin is 8.0 over 26.8, MCV is 89.6, RDW is 20.1, platelets are 234,000. On her chemistries, the patient has a sodium of 135, potassium of 3.9, chloride of 97, CO2 26, BUN of 41, creatinine of 1.11, calcium of 74, AST is 50, ALT of 46, alkaline phosphatase of 200, albumin is 1.7. The patient's peritoneal cytology done on 12/14/2018 is positive for malignancy. ASSESSMENT: At this time is stage IV pancreatic carcinoma now presenting with malignant ascites, overt jaundice, biliary obstruction, and a performance status of 3/4. PLAN: I will have discussion with the patient and her family regarding her overall prognosis. At this point, pancreatic carcinoma has less than likely a three-month life expectancy. Chemotherapy is no longer recommended at this stage of her disease and comfort measures and palliation only would be appropriate.
--- NOTE | 2019-01-14 19:34 | DSES ---
DATE OF ADMISSION: 12/12/2018 DATE OF DISCHARGE: 12/20/2018 DISCHARGE DIAGNOSES: 1. Metastatic pancreatic carcinoma with liver metastases. 2. Secondary biliary obstruction with hyperbilirubinemia and symptomatic obstructive jaundice, failed endoscopic retrograde cholangiopancreatography (ERCP) and biliary stenting. 3. Leukocytosis. 4. Lilian albicans septic shock. 5. Pulmonary embolus. 6. Acute cerebrovascular accident (CVA). 7. Diabetes mellitus, type 2. 8. Atrial fibrillation with rapid ventricular response (RVR). HOSPITAL COURSE: The patient was admitted with symptomatic obstructive jaundice with nausea and vomiting after having failed endoscopic retrograde cholangiopancreatography (ERCP) and stenting. Interventional radiologist, Dr. Cazares, was consulted who performed percutaneous transhepatic cholangiogram with cannulization of biliary obstruction with internal and external drain placement on 12/17/2018. The next day, the patient developed a leukocytosis, fever, was felt to be bacteremia from the previous day procedure, for which empiric meropenem was started. Additionally, she had new onset atrial fibrillation with rapid ventricular response (RVR). Therefore, she was started on therapeutic Lovenox with metoprolol to control her rate. 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
== END 2018-12-20 18:39 | disposition home or self-care (01) | DRG 264 ==
LOC: M ED 13:56 → M ED INP 20:27 → M MS5PR 12-13 12:20 → M PCU 12-18 15:22
PROVIDERS: ADMIT Internal Medicine; ATTEND Family Medicine
PROC: 0DJ08ZZ Inspection of Upper Intestinal Tract, Via Natural or Artificial Opening Endoscopic (ICD-10-PCS; 2018-12-14)
PROC: 0W9G3ZZ Drainage of Peritoneal Cavity, Percutaneous Approach (ICD-10-PCS; principal; 2018-12-14 15:00)
PROC: 0F9930Z Drainage of Common Bile Duct with Drainage Device, Percutaneous Approach (ICD-10-PCS; 2018-12-17)
PROC: BF10YZZ Fluoroscopy of Bile Ducts using Other Contrast (ICD-10-PCS; 2018-12-17)
DX: C25.9 Malignant neoplasm of pancreas, unspecified (principal); I26.99 Other pulmonary embolism without acute cor pulmonale; R65.21 Severe sepsis with septic shock; R18.0 Malignant ascites; C78.7 Secondary malignant neoplasm of liver and intrahepatic bile duct; B37.7 Candidal sepsis; K83.1 Obstruction of bile duct; I48.91 Unspecified atrial fibrillation; E66.01 Morbid (severe) obesity due to excess calories; E11.9 Type 2 diabetes mellitus without complications; D72.829 Elevated white blood cell count, unspecified; Z79.82 Long term (current) use of aspirin; Z79.899 Other long term (current) drug therapy; Z86.73 Personal history of transient ischemic attack (TIA), and cerebral infarction without residual deficits; Z51.5 Encounter for palliative care